=== PATIENT | male | born 1945 | race Caucasian/White ===

== ENCOUNTER 2017-01-02 22:52 | Inpatient (IN) | payer MEDICARE ==
[~2017-01-02] VITALS: Ht 165.1 cm; Wt 57.6 kg
[~2017-01-02 22:52] MED LIST: ACLI400A2 IH; ASPI-482 PO; CIPR500T94 PO; FLUT16SP NS; GLIP5TAB10 PO; LISI-334 PO; METF500T4 PO; megared
--- NOTE | 2017-01-02 23:17 | ED.ADGEN ---
Past Medical History Past Medical History: COPD, Diabetes-Type II, Hypertension Past Surgical History: Appendectomy Alcohol Use: None Drug Use: None Adult General Chief Complaint Chief Complaint: ALTERED MENTAL STATUS HPI HPI Patient is a 71 year old man, history of COPD, uses 2 L of oxygen at baseline as needed, type 2 diabetes mellitus, hypertension, UTI, who presents emergency department with report of altered mental status. Per EMS report, patient was first noted to be exhibiting signs altered mental status and some slurred speech around 6 days ago. Symptoms have been worsening over the past several days per EMS report, family is en route to the ED to give additional information. Patient is awake, oriented to self only upon arrival to the ED, the all extremities, speech is clear and intact. Patient is denying complaints at this time. Noted be febrile, 101.9 rectally upon arrival to the emergency department, hypertensive, 220/112, heart rate 100s to 120s, sinus rhythm. Patient is a limited historian, unclear what his baseline mental status might are present. Review of Systems Review of Systems Patient is a limited historian, is denying complaints at this time. Current Medications Current Medications Current Medications Medications (Trade) Dose Ordered Sig/Kecia Start Time Stop Time Status Last Admin Dose Admin Acetaminophen (Tylenol) 650 mg 1X ONCE 01/02/17 23:45 01/02/17 23:46 DC 01/03/17 00:08 650 MG Sodium Chloride (Iv Sodium Chloride 0.9% 1000ml Bag) 1,770 ml @ 1,770 mls/hr Q1H 01/02/17 23:45 01/02/17 23:20 1,770 MLS/HR Allergies Allergies Allergies Coded Allergies Type Severity Reaction Last Updated Verified nicotine Allergy Intermediate allergic to adhesive on patch 02/06/15 No erythromycin base Adverse Reaction Intermediate diarrhea 02/06/15 No Physical Exam Physical Exam Constitutional: Well developed, well nourished, no acute distress, ill in appearance, nasal cannula in place, cool extremities. HENT: Normocephalic, atraumatic, bilateral external ears normal, oropharynx moist, no oral exudates, nose normal. [] Eyes: PERRLA, EOMI, conjunctiva normal, no discharge. [] Neck: Normal range of motion, no tenderness, supple, no stridor. [] Cardiovascular:Heart rate regular rhythm, no murmur , S1, S2, soft heart sounds , tachycardia. No rubs or gallops. [] Lungs & Thorax: Diminished breath sounds throughout, she with occasional mild rhonchi, no rales, Very poor inspiratory effort, limiting evaluation.. Abdomen: Bowel sounds normal, soft, no tenderness, no rebound, rigidity, no guarding, no masses, no pulsatile masses. [] Skin: Warm, dry, no erythema, no rash. [] Back: No step-offs or deformities, no midline tenderness, no CVA tenderness. [] Extremities: No tenderness, no cyanosis, no clubbing, ROM intact, no edema. [] Neurologic: Alert and oriented X 1, normal motor function, normal sensory function, no focal deficits noted. [] Psychologic: Affect normal, judgement normal, mood normal. [] Current Patient Data Vital Signs Vital Signs Date Time Temp Pulse Resp B/P Pulse Ox O2 Delivery O2 Flow Rate FiO2 01/02/17 22:55 101.9 116 30 215/98 93 Nasal Cannula 2 101.9 Lab Values Laboratory Tests Test 01/02/17 23:10 01/02/17 23:12 01/02/17 23:42 White Blood Count 13.9x10^3/uL (4.0-11.0) H Red Blood Count 4.66x10^6/uL (4.30-5.70) Hemoglobin 13.6g/dL (13.0-17.5) Hematocrit 41.8% (39.0-53.0) Mean Corpuscular Volume 90fL (79-100) Mean Corpuscular Hemoglobin 29pg (25-35) Mean Corpuscular Hemoglobin Concent 32g/dL (31-37) Red Cell Distribution Width 14.8% (11.5-14.5) H Platelet Count 185x10^3/uL (140-400) Neutrophils (%) (Auto) 83% (31-73) H Lymphocytes (%) (Auto) 5% (24-48) L Monocytes (%) (Auto) 12% (0-9) H Eosinophils (%) (Auto) 0% (0-3) Basophils (%) (Auto) 0% (0-3) Neutrophils # (Auto) 11.6x10^3uL (1.8-7.7) H Lymphocytes # (Auto) 0.6x10^3/uL (1.0-4.8) L Monocytes # (Auto) 1.7x10^3/uL (0.0-1.1) H Eosinophils # (Auto) 0.0x10^3/uL (0.0-0.7) Basophils # (Auto) 0.0x10^3/uL (0.0-0.2) Prothrombin Time 14.8SEC (11.7-14.0) H Prothrombin Time INR 1.2 (0.8-1.1) H PTT 37SEC (24-38) Sodium Level 138mmol/L (136-145) Potassium Level 5.2mmol/L (3.5-5.1) H Chloride Level 97mmol/L (98-107) L Carbon Dioxide Level 39mmol/L (21-32) H Anion Gap 2 (6-14) L Blood Urea Nitrogen 35mg/dL (8-26) H Creatinine 0.9mg/dL (0.7-1.3) Estimated GFR (Cockcroft-Gault) 83.7 BUN/Creatinine Ratio 39 (6-20) H Glucose Level 210mg/dL (70-99) H Lactic Acid Level 4.1mmol/L (0.4-2.0) *H Calcium Level 9.4mg/dL (8.5-10.1) Total Bilirubin 0.7mg/dL (0.2-1.0) Aspartate Amino Transferase (AST) 18U/L (15-37) Alanine Aminotransferase (ALT) 32U/L (16-63) Alkaline Phosphatase 40U/L (46-116) L Troponin I Quantitative 0.644ng/mL (0.000-0.055) UA-Qfl-I-Type Natriuretic Peptide 20917yh/mL (0-124) H Total Protein 7.1g/dL (6.4-8.2) Albumin 3.9g/dL (3.4-5.0) Albumin/Globulin Ratio 1.2 (1.0-1.7) Influenza Type A Antigen Negative (NEGATIVE) Influenza Type B Antigen Negative (NEGATIVE) Urine Collection Type U cath Urine Color Yellow Urine Clarity Clear Urine pH 6.0 Urine Specific [place] 1.020 Urine Protein 100mg/dL (NEG-TRACE) Urine Glucose (UA) 500mg/dL (NEG) Urine Ketones (Stick) Tracemg/dL (NEG) Urine Blood Small (NEG) Urine Nitrite Negative (NEG) Urine Bilirubin Negative (NEG) Urine Urobilinogen Dipstick 1.0mg/dL (0.2 mg/dL) Urine Leukocyte Esterase Negative (NEG) Urine RBC 1-2/HPF (0-2) Urine WBC 1-4/HPF (0-4) Urine Squamous Epithelial Cells Few/LPF Urine Amorphous Sediment Present/HPF Urine Bacteria 0/HPF (0-FEW) Urine Hyaline Casts Few/HPF Urine Mucus Slight/LPF Urine Opiates Screen Neg (NEG) Urine Methadone Screen Neg (NEG) Urine Barbiturates Neg (NEG) Urine Phencyclidine Screen Neg (NEG) Urine Amphetamine/Methamphetamine Neg (NEG) Urine Benzodiazepines Screen Neg (NEG) Urine Cocaine Screen Neg (NEG) Urine Cannabinoids Screen Neg (NEG) Urine Ethyl Alcohol Neg (NEG) O2 Saturation 96% (92-99) Arterial Blood pH 7.40 (7.35-7.45) Arterial Blood pCO2 at Patient Temp 54mmHg (35-46) H Arterial Blood pO2 at Patient Temp 80mmHg (65-108) Arterial Blood HCO3 32mmol/L (21-28) H Arterial Blood Base Excess 6mmol/L (-3-3) H FiO2 28 Laboratory Tests 01/02/17 23:10 Laboratory Tests 01/02/17 23:10 EKG EKG EC: Sinus tachycardia, heart rate 117 bpm, right axis deviation, moderate baseline artifact noted, limiting some interpretation, [address] elevation noted in lead V3, no other elevations or depressions identified, abnormal ECG, does not meet STEMI criteria. As interpreted by me. [] Radiology/Procedures Radiology/Procedures Test x-ray: One view: Patient with significant hyper inflation consistent with previous chest x-ray, known history of COPD, patient noted to have increased interstitial markings, without discrete infiltrate, possible cephalization. No pneumothorax, no bony abnormalities As interpreted by me. [] Course & Med Decision Making Course & Med Decision Making Pertinent Labs and Imaging studies reviewed. (See chart for details) Patient febrile, 101.9 rectally as stated, with altered mental status, is answering some questions, but is not cooperative with examination. Attempting to pull nasal cannula minutes placed secondary to concern for patient removing vital monitoring and medical Thomas. Fully catheter was placed for monitoring and critical illness. Noted be hypertensive, initially believed due to his movement, 200s over 100s, heart rate in the 120s, sinus tachycardia. Patient's and now bedside, she states he began "acting strangely" 5 days ago, difficulty finding words, difficulty using his phone. States that that progressed over the past several days, was worse today, patient had a loss of bladder control, was unable to get off the couch, at that time she called her son, they did call EMS brought the patient to the ED. Patient is not had similar symptoms previously. ABG obtained, reveals a pH of 7.4, PCO2 33, O2 of 80, bicarbonate of 32 with a base excess of 6, she states the patient did have his oxygen on at home as far she is aware. Patient noted to have elevated troponin at 0.644, with a proBNP greater than 11,000. He has no reported history of congestive heart failure. Patient's blood pressure continued to be elevated, 200s 100s. Concern for congestive heart failure along with elevated lactic acidosis and evidence of poor perfusion, patient has received a 1 L fluid bolus at this time. Findings as above discussed with Dr. Zapata of cardiology, recommends continuing gentle hydration at this time, with addition of a nitroglycerin infusion per protocol for blood pressure control. Patient continues to have an altered mentation, which may be due to a constellation of findings, I do not believe that his examination is consistent with meningitis or indication rule out puncture this time, head CT was unremarkable, I did discuss all this at bedside with patient's , she is agreeable with the plan of care at this point. Patient is DNR DNI. Findings as above discussed with Dr. Medellin of internal medicine, patient accepted his service as an admission to the CVICU, will continue after glycerin drip, gentle hydration, will cover with vancomycin and Levaquin, and consult infectious disease and neurology for additional evaluation. Bridge orders entered per discussion. Dragon Disclaimer Dragon Disclaimer This electronic medical record was generated, in whole or in part, using a voice recognition dictation system. Departure Impression: Primary Impression: Altered mental status Additional Impression: Community acquired pneumonia Disposition: 09 ADMITTED INPATIENT Admitting Physician: Judah Medellin Condition: IMPROVED Critical Care Time Critical care time was 20 minutes exclusive of procedures. Problem Qualifiers KRISTEN CHAPA DO Jan 02, 2017 23:17
[2017-01-02] MEDS: NORMAL SALINE IV SCH (23:20)
[2017-01-02 23:22] LABS: BASO % 0 % (0-3); EOS % 0 % (0-3); HEMATOCRIT 41.8 % (39.0-53.0); HEMOGLOBIN 13.6 g/dL (13.0-17.5); LYMPH # 0.6 x10^3/uL (1.0-4.8); LYMPH % 5 % (24-48); MEAN CORPUSCULAR HEMOGLOBIN 29 pg (25-35); MEAN CORPUSCULAR HGB CONC 32 g/dL (31-37); MEAN CORPUSCULAR VOLUME 90 fL (79-100); MONO % 12 % (0-9); NEUT % 83 % (31-73); PLATELET COUNT 185 x10^3/uL (140-400); RED BLOOD COUNT 4.66 x10^6/uL (4.30-5.70); RED CELL DISTRIBUTION WIDTH 14.8 % (11.5-14.5); WHITE BLOOD COUNT 13.9 x10^3/uL (4.0-11.0)
[2017-01-02 23:22] LABS: BILIRUBIN,URINE NEGATIVE (NEG); GLUCOSE,URINE 500 mg/dL (NEG); NITRITE,URINE NEGATIVE (NEG); PROTEIN,URINE 100 mg/dL (NEG-TRACE)
[2017-01-02 23:27] LABS: BACTERIA,URINE 0 /HPF (0-FEW); SQUAMOUS EPITHELIAL CELL,UR FEW /LPF
[2017-01-02 23:29] LABS: BARBITURATES NEG (NEG); BENZODIAZEPINES NEG (NEG); CANNABINOIDS NEG (NEG); COCAINE NEG (NEG); METHADONE NEG (NEG); OPIATES NEG (NEG); PHENCYCLIDINE NEG (NEG)
[2017-01-02 23:31] LABS: INR 1.2 (0.8-1.1); PROTHROMBIN TIME PATIENT 14.8 SEC (11.7-14.0)
[2017-01-02 23:33] LABS: ETHANOL, URINE NEG (NEG)
[2017-01-02 23:35] LABS: CALCIUM 9.4 mg/dL (8.5-10.1); CREATININE 0.9 mg/dL (0.7-1.3); GFR 83.7; POTASSIUM 5.2 mmol/L (3.5-5.1)
[2017-01-02 23:41] LABS: ALBUMIN 3.9 g/dL (3.4-5.0); ALBUMIN/GLOBULIN RATIO 1.2 (1.0-1.7); TOTAL BILIRUBIN 0.7 mg/dL (0.2-1.0); TOTAL PROTEIN 7.1 g/dL (6.4-8.2)
[2017-01-02 23:42] LABS: OBC FLU VALID
--- NOTE | 2017-01-02 23:43 | RAD ---
PROCEDURE CT head without contrast dated 01/02/2017. HISTORY Altered mental status. TECHNIQUE Contiguous axial imaging of the head was performed from skull base to vertex.Exposure: One or more of the following individualized dose reduction techniques were utilized for this exam: 1. Automated exposure control. 2. Adjustment of the mA and/or kV according to patient size. 3. Use of iterative reconstruction technique. COMPARISON None. FINDINGS Ventricles and sulci are mildly prominent for age. No midline shift or mass-effect. Mild patchy low density in the deep/subcortical periventricular white matter. No hemorrhage or extra-axial collection. Posterior fossa and brainstem unremarkable. Visualized paranasal sinuses and mastoid air cells are clear. No acute calvarial abnormality. IMPRESSION - No evidence of acute intracranial hemorrhage or mass. - Mild chronic small vessel ischemic changes and atrophy. Electronically signed by: Naga Trujillo (Jan 02, 2017 23:42:33)
[2017-01-02] MEDS ORDERED: ACETAMINOPHEN 650 MG SUPP.RECT. PR ONE (23:45)
[2017-01-03] VITALS (35 sets, daily range): BP systolic 86–189; BP diastolic 32–102
[2017-01-03] MEDS ORDERED: methylPREDNISolone SOD SUCC PF 125 MG/2 ML VIAL. IV ONE (00:30)
[2017-01-03] MEDS ORDERED: ASPIRIN 325 MG TABLET PO ONE (00:30)
[2017-01-03] MEDS ORDERED: IV NORMAL SALINE 1000ML BAG 1,000 ML IV ONE (00:30)
[2017-01-03] MEDS ORDERED: NITROGLYCERIN PREMIX 250 ML IV ONE (00:30)
[2017-01-03 00:45] LABS: ALLEN TEST Y; FIO2 ABG 28; HCO3 ABG 32 mmol/L (21-28); PCO2 ABG 54 mmHg (35-46); PO2 ABG 80 mmHg (65-108); SAT O2 ABG 96 % (92-99)
[2017-01-03] MEDS ORDERED: DEXTROSE 50% 25 GM / 50ML DISP.SYRIN. IV PRN ×2 (00:45→08:15)
[2017-01-03] MEDS ORDERED: ONDANSETRON PF 4 MG/2 ML VIAL. IV PRN (00:45)
[2017-01-03] MEDS ORDERED: ACETAMINOPHEN 325 MG TABLET. PO PRN (00:45)
[2017-01-03] MEDS: NORMAL SALINE IV SCH ×9 (00:45→08:45)
[2017-01-03] MEDS ORDERED: IV NORMAL SALINE 1000ML BAG 1,000 ML IV SCH ×2 (01:00→03:00)
--- NOTE | 2017-01-03 01:10 | ACF ---
Admission Forms Criteria MENTAL STATUS CHANGE Clinical Indications for Inpatient Care (Place 'X' for any and all applicable criteria): Ongoing inpatient care may be needed for ANY ONE of the following(1)(2)(3)(5)(6) : [X]I. Suspected serious etiology (eg, medical disorder, BUS MATRON event) of mental status change [ ]II. Danger to self or others not manageable at lower level of care [ ]III. Grave disability (eg, inability to perform self care necessary at lower level of care) [ ]IV. Agitation or inappropriate behavior interfering with care for primary condition (eg, attempting to discontinue lines or drains prematurely, unable to cooperate with respiratory care) [ ]V. Delirium [A] [D][E] as described by ANY ONE of the following(26): [ ]a) Delirium due to alcohol or sedative [F] withdrawal [ ]b) Delirium of uncertain etiology that has not responded to appropriate empiric treatment [ ]c) Delirium that prevents performance of a life-sustaining function (eg, feeding or hydrating oneself) [ ]. General contraindications and/or Inappropriate clinical situations for Observational Care in patients with Mental Status Change, when ANY ONE of the following is required: [ ]a) Prediction of prolongation of LOS based on ANY ONE of the following may be considered as a contraindication for observational care 2, 3, 4, 5, 6, 7, 8, 9, 10, 11 [ ]i) Age > 65 yrs. [ ]ii) Patient arriving by ambulance [ ]iii) Patient with high acuity [ ]iv) Patient requiring vital sign monitoring [ ]v) Patient on IV medication [ ]b) Systolic blood pressures 180mmHg 3,12 [ ]c) Patient with altered mental status including delirium and other alteration of consciousness, (3) [ ]d) Patient whose discharge disposition will be to a fdc home or rehabilitation home should not be managed in Emergency Department Observation Unit. CMS rule requires 3 days hospital stay before such placement.3,13 [ ]e) Patient with failure to thrive due to broad array of etiologies 3,16,17 [ ]f) Inability to ambulate 3,14 Extended stay beyond goal length of stay for the primary condition may be needed until ALL of the following are present(3)(5): [ ]a) Underlying medical etiology of mental status change is absent, or has been established and adequately treated [ ]b) Danger to self or others is absent or manageable at lower level of care. [ ]c) Behavior crisis management, including physical or chemical restraints, is not required or available at lower level of car [ ]d) Substance or alcohol withdrawal is absent or manageable at lower level of care. [ ]e) Behavioral symptoms (eg, agitation, somnolence, inappropriate behavior) are absent, or are manageable at lower level of care. The original [facility] content created by [email or web address] has been revised. The portions of the content which have been revised are identified through the use of italic text or in bold, and [facility] has neither reviewed nor approved the modified material. All other unmodified content is copyright [facility]. Please see references footnoted in the original [facility] edition 2016 Admission Criteria Met?: Yes BRYANT BERRY Jan 03, 2017 01:10
[2017-01-03] MEDS ORDERED: ASPIRIN 300 MG SUPP.RECT PR ONE (01:15)
[2017-01-03] MEDS: VANCOMYCIN PER PHARMACY MC PRN (02:26)
[2017-01-03] MEDS ORDERED: VANCOMYCIN 1.5 GM in IV NORMAL SALINE 500ML BAG 500 ML IV ONE (02:30)
[2017-01-03] MEDS ORDERED: PNEUMOCOCCAL VAX SCREEN BY RX. MC ONE (02:45)
[2017-01-03] MEDS ORDERED: MELO7.5T5 PO (02:59)
[2017-01-03] MEDS ORDERED: RANI150T6 PO (02:59)
[2017-01-03] MEDS ORDERED: NITROGLYCERIN PREMIX 250 ML IV PRN (03:00)
[2017-01-03] MEDS ORDERED: IPRA0.2S5 NEB (03:15)
[2017-01-03] MEDS ORDERED: GLIP5TAB10 PO (03:15)
[2017-01-03] MEDS ORDERED: LORA0.5T96 PO (03:15)
[2017-01-03] MEDS ORDERED: MONT10TA9 PO (03:15)
[2017-01-03] MEDS ORDERED: FUROSEMIDE 40 MG/4 ML VIAL IVP ONE (06:15)
--- NOTE | 2017-01-03 06:34 | EKG ---
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
--- NOTE | 2017-01-03 06:35 | EKG ---
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
--- NOTE | 2017-01-03 07:09 | RAD ---
Portable chest, 01/02/2017: History: Altered mental status Comparison is made to a study from 05/14/2016. The heart size is normal. There is calcific plaquing of the aorta. The pulmonary vascularity is within normal limits. There are a few scattered parenchymal scars. A calcified granuloma is present in the left base. No pulmonary consolidation is seen. There is no evidence of pleural fluid. IMPRESSION: 1. Emphysema with parenchymal scarring. 2. No acute abnormality is detected.
--- NOTE | 2017-01-03 07:12 | PDOC ---
Infectious Disease Note Vital Sign Vital Signs Vital Signs Date Time Temp Pulse Resp B/P Pulse Ox O2 Delivery O2 Flow Rate FiO2 01/03/17 06:00 102 29 157/94 96 Nasal Cannula 3.0 01/03/17 04:00 98.2 98.2 Labs Lab Laboratory Tests Test 01/02/17 23:10 01/02/17 23:12 01/02/17 23:42 01/03/17 00:20 White Blood Count 13.9x10^3/uL (4.0-11.0) Red Blood Count 4.66x10^6/uL (4.30-5.70) Hemoglobin 13.6g/dL (13.0-17.5) Hematocrit 41.8% (39.0-53.0) Mean Corpuscular Volume 90fL (79-100) Mean Corpuscular Hemoglobin 29pg (25-35) Mean Corpuscular Hemoglobin Concent 32g/dL (31-37) Red Cell Distribution Width 14.8% (11.5-14.5) Platelet Count 185x10^3/uL (140-400) Neutrophils (%) (Auto) 83% (31-73) Lymphocytes (%) (Auto) 5% (24-48) Monocytes (%) (Auto) 12% (0-9) Eosinophils (%) (Auto) 0% (0-3) Basophils (%) (Auto) 0% (0-3) Neutrophils # (Auto) 11.6x10^3uL (1.8-7.7) Lymphocytes # (Auto) 0.6x10^3/uL (1.0-4.8) Monocytes # (Auto) 1.7x10^3/uL (0.0-1.1) Eosinophils # (Auto) 0.0x10^3/uL (0.0-0.7) Basophils # (Auto) 0.0x10^3/uL (0.0-0.2) Prothrombin Time 14.8SEC (11.7-14.0) Prothromb Time International Ratio 1.2 (0.8-1.1) Activated Partial Thromboplast Time 37SEC (24-38) Sodium Level 138mmol/L (136-145) Potassium Level 5.2mmol/L (3.5-5.1) Chloride Level 97mmol/L (98-107) Carbon Dioxide Level 39mmol/L (21-32) Anion Gap 2 (6-14) Blood Urea Nitrogen 35mg/dL (8-26) Creatinine 0.9mg/dL (0.7-1.3) Estimated GFR (Cockcroft-Gault) 83.7 BUN/Creatinine Ratio 39 (6-20) Glucose Level 210mg/dL (70-99) Lactic Acid Level 4.1mmol/L (0.4-2.0) 0.9mmol/L (0.4-2.0) Calcium Level 9.4mg/dL (8.5-10.1) Total Bilirubin 0.7mg/dL (0.2-1.0) Aspartate Amino Transf (AST/SGOT) 18U/L (15-37) Alanine Aminotransferase (ALT/SGPT) 32U/L (16-63) Alkaline Phosphatase 40U/L (46-116) Troponin I Quantitative 0.644ng/mL (0.000-0.055) AQ-Lsm-F-Type Natriuretic Peptide 48703zn/mL (0-124) Total Protein 7.1g/dL (6.4-8.2) Albumin 3.9g/dL (3.4-5.0) Albumin/Globulin Ratio 1.2 (1.0-1.7) Influenza Type A Antigen Negative (NEGATIVE) Influenza Type B Antigen Negative (NEGATIVE) Urine Collection Type U cath Urine Color Yellow Urine Clarity Clear Urine pH 6.0 Urine Specific [place] 1.020 Urine Protein 100mg/dL (NEG-TRACE) Urine Glucose (UA) 500mg/dL (NEG) Urine Ketones (Stick) Tracemg/dL (NEG) Urine Blood Small (NEG) Urine Nitrite Negative (NEG) Urine Bilirubin Negative (NEG) Urine Urobilinogen Dipstick 1.0mg/dL (0.2 mg/dL) Urine Leukocyte Esterase Negative (NEG) Urine RBC 1-2/HPF (0-2) Urine WBC 1-4/HPF (0-4) Urine Squamous Epithelial Cells Few/LPF Urine Amorphous Sediment Present/HPF Urine Bacteria 0/HPF (0-FEW) Urine Hyaline Casts Few/HPF Urine Mucus Slight/LPF Urine Opiates Screen Neg (NEG) Urine Methadone Screen Neg (NEG) Urine Barbiturates Neg (NEG) Urine Phencyclidine Screen Neg (NEG) Urine Amphetamine/Methamphetamine Neg (NEG) Urine Benzodiazepines Screen Neg (NEG) Urine Cocaine Screen Neg (NEG) Urine Cannabinoids Screen Neg (NEG) Urine Ethyl Alcohol Neg (NEG) O2 Saturation 96% (92-99) Arterial Blood pH 7.40 (7.35-7.45) Arterial Blood pCO2 at Patient Temp 54mmHg (35-46) Arterial Blood pO2 at Patient Temp 80mmHg (65-108) Arterial Blood HCO3 32mmol/L (21-28) Arterial Blood Base Excess 6mmol/L (-3-3) FiO2 28 Objective Assessment Sepsis Encephalopathy COPD exacerbation CHF/Interstitial infiltrate Debility Plan Plan of Care DNR/DNI supportive care add zosyn to vanc and levaquin panculture prognosis poor RICO FAM MD Jan 03, 2017 07:12
[2017-01-03] MEDS ORDERED: IPRATRPIUM/ALBUTEROL 0.5/2.5MG 3 ML NEBU. NEB SCH (08:00)
[2017-01-03] MEDS ORDERED: PIPERACILLIN/TAZOBACTAM 3.375 GM in IV NORMAL SALINE 50ML 50 ML IV SCH (08:00)
[2017-01-03] MEDS: INSULIN ASPART 300 UNITS/3 ML INSULN.PEN SQ SCH ×3 (08:00→17:00)
[2017-01-03] MEDS ORDERED: LORAZEPAM 0.5 MG TABLET. PO PRN (08:15)
[2017-01-03] MEDS ORDERED: PIP/TAZO PER PHARMACY MC PRN (08:15)
[2017-01-03] MEDS ORDERED: LORAZEPAM 2 MG/ML VIAL IV STA (08:26)
[2017-01-03 08:28] LABS: BODY TEMP ABG 101.1 DEG; CORRECTED PCO2 ABG 59 mmHg; CORRECTED PH ABG 7.39; CORRECTED PO2 ABG 74 mmHg; HCO3 ABG 35 mmol/L (21-28); PCO2 ABG 56 mmHg (35-46); PH ABG 7.41 (7.35-7.45); PO2 ABG 68 mmHg (65-108); SAT O2 ABG 94 % (92-99)
--- NOTE | 2017-01-03 08:32 | CONS ---
DATE OF CONSULTATION: 01/03/2017 REQUESTING PHYSICIAN: Dr. Medellin. REASON FOR CONSULTATION: Sepsis. HISTORY OF PRESENT ILLNESS: This is a 71-year-old gentleman with severe COPD, who was brought in with altered mental status. The patient was found to be hypoxic, leukocytosis, had a fever up to 101.9, received fluids and admitted to ICU, had lactic acidosis. The patient is not responsive, although blood pressure is stable and oxygenation is stable. Pulmonary interstitial lung markings were increased. BNP was high, up to 11,466, and lactic acid up to 4.1. The patient received vancomycin and Levaquin and consult has been requested. The patient is not able to provide any information. All the information was obtained through chart review, discussing with the patient's nurse. No nausea, vomiting, diarrhea noted by nurse. PAST MEDICAL HISTORY: Positive for COPD, diabetes, hypertension, has had appendicectomy, appears to be he is on home oxygen, and he is also DNR/DNI has been listed in ER records. SOCIAL HISTORY: Unable to obtain. ALLERGIES: LISTED ALLERGIC TO ERYTHROMYCIN ____ CURRENT MEDICATIONS: Reviewed. The patient is on vancomycin and Levaquin. REVIEW OF SYSTEMS: Unable to obtain other than what I mentioned in the HPI through the patient's nurse. PHYSICAL EXAMINATION: GENERAL: Awake, unresponsive gentleman, not in any distress, very mild respiratory distress. VITAL SIGNS: Stable. Temperature 98.2, with a T-max 101.9, pulse 107, respirations 25, blood pressure 148/85. HEENT: Both pupils are round and reacting. No conjunctival lesion. No oral lesions. NECK: Supple, although unable to evaluate as the patient is not cooperating. No lymphadenopathy. LUNGS: Decreased breath sounds bilaterally. HEART: S1, S2 regular. No gallop or murmur. ABDOMEN: Soft, nontender, no organomegaly. EXTREMITIES: No edema or cyanosis. The patient does have extremely dry, flaky skin. NEUROLOGICAL: The patient does not respond to command. LABORATORY DATA: White count is 13.9, hemoglobin 13.6, platelets are normal. BUN is 35, creatinine is 0.9. Lactic acid 4.1. BNP is 11,466. Urinalysis negative for any infection. Influenza screen is negative. Chest x-ray is showing bilateral increased interstitial markings. CT of the head was unremarkable for any acute changes. IMPRESSION: 1. Sepsis with lactic acidosis. 2. Encephalopathy. 3. Chronic obstructive pulmonary disease exacerbation. 4. Congestive heart failure. 5. Debility and poor self care. RECOMMENDATIONS: Continue vancomycin and Levaquin, add Zosyn, cuello culture, supportive care. The patient is DNR/DNI. We will continue to follow. Overall prognosis is guarded to poor. Thank you very much, Dr. Medellin, for giving me the opportunity to participate in this patient's care. RICO FAM MD DR: NAEL/evgeny JOB#: [id number] / [id number]
[2017-01-03 08:36] LABS: FIO2 ABG 32%
[2017-01-03 08:39] LABS: CALCIUM 8.4 mg/dL (8.5-10.1); CREATININE 0.7 mg/dL (0.7-1.3); GFR 111.8; POTASSIUM 4.1 mmol/L (3.5-5.1)
[2017-01-03] MEDS ORDERED: LORAZEPAM 2 MG/ML VIAL IV PRN ×2 (08:45)
[2017-01-03] MEDS ORDERED: LORAZEPAM 2 MG/ML VIAL IV ONE (08:45)
--- NOTE | 2017-01-03 08:46 | PDOC1 ---
History and Physical Date of Admission Date of Admission DATE: 01/03/17 TIME: 08:46 Identification/Chief Complaint Chief Complaint confusion, dyspnea Source Source: Chart review History of Present Illness History of Present Illness Mr Perez, is a 71 year old man, EMS to ER, admitted for confusion, lethargy 6 days of slurred speech, weakness, not much other history IN ER speech was clear and intact. in ICU this AM, confused, wearing mitts, not responding with verbal, he did have a seizure < 2 min, stopped, then agitation and Resp rate improved a lot with IV Ativan 2 febrile, 101.9 hypertensive, 220/112, tachycardia Past Medical History Past Medical History history of COPD, uses 2 L of oxygen at baseline as needed, type 2 diabetes mellitus, hypertension, Cardiovascular: CHF, HTN Pulmonary: COPD Endocrine: Diabetes Family History Family History: No Significant Social History Smoke: Quit ALCOHOL: other Current Problem List Problem List Problems Medical Problems: (1) Altered mental status Status: Acute (2) Community acquired pneumonia Status: Acute Problems: Current Medications Current Medications Current Medications Sodium Chloride (Iv Sodium Chloride 0.9% 1000ml Bag) 1,770 ml @ 1,770 mls/hr Q1H IV Last administered on 01/02/17 23:20; Start 01/02/17 at 23:45 Acetaminophen 650 mg 650 mg 1X ONCE MD Last administered on 01/03/17 00:08; Start 01/02/17 at 23:45; Stop 01/02/17 at 23:46; Status DC Levofloxacin/ Dextrose (LEVAQUIN 750mg PREMIX) 150 ml @ 100 mls/hr 1X ONCE IV Last administered on 01/03/17 00:47; Start 01/03/17 at 00:30; Stop 01/03/17 at 01:59; Status DC Methylprednisolone Sodium Succinate 125 mg 125 mg 1X ONCE IV Last administered on 01/03/17 00:45; Start 01/03/17 at 00:30; Stop 01/03/17 at 00:31 ; Status DC Nitroglycerin/ Dextrose 250 ml @ 0 mls/hr 1X ONCE IV Last administered on 01/03 00:45; Start 01/03/17 at 00:30; Stop 01/03/17 at 00:31; Status DC Sodium Chloride (Iv Sodium Chloride 0.9% 1000ml Bag) 1,000 ml @ 125 mls/hr 1X ONCE IV ; Start 01/03/17 at 00:30; Stop 01/03/17 at 08:29; Status Cancel Aspirin (Fabiola Aspirin) 325 mg 1X ONCE PO ; Start 01/03/17 at 00:30; Stop 01/03 at 00:31; Status DC Vancomycin HCl (Vanco Per Pharmacy) 1 each PRN DAILY PRN MC SEE COMMENTS Last administered on 01/03/17 02:26; Start 01/03/17 at 02:30 Ondansetron HCl 4 mg 4 mg PRN Q8HRS PRN IV NAUSEA/VOMITING; Start 01/03/17 at 00:45; Stop 01/04/17 at 00:44 Sodium Chloride (Iv Sodium Chloride 0.9% 1000ml Bag) 1,000 ml @ 100 mls/hr Q10H IV ; Start 01/03/17 at 01:00; Stop 01/03/17 at 02:56; Status DC Acetaminophen (Tylenol) 650 mg PRN Q4HRS PRN PO FEVER; Start 01/03/17 at 00:45 ; Stop 01/04/17 at 00:44 Albuterol/ Ipratropium (Duoneb) 3 ml RTQID NEB ; Start 01/03/17 at 08:00; Stop 01/03/17 at 08:05; Status DC Insulin Aspart (Novolog) 0-5 UNITS TIDWMEALS SQ ; Start 01/03/17 at 08:00 Dextrose 12.5 gm PRN Q15MIN PRN IV SEE COMMENTS; Start 01/03/17 at 00:45 Aspirin 300 mg 300 mg 1X ONCE MD Last administered on 01/03/17 01:23; Start 01/03/17 at 01:15; Stop 01/03/17 at 01:16; Status DC Vancomycin HCl 1.5 gm/Sodium Chloride 500 ml @ 250 mls/hr 1X ONCE IV Last administered on 01/03/17 02:33; Start 01/03/17 at 02:30; Stop 01/03/17 at 04:29 ; Status DC Vancomycin HCl/ Sodium Chloride (Iv Sodium Chloride 0.9% 250ml) 250 ml @ 250 mls/hr Q24H IV ; Start 01/04/17 at 02:30 Vancomycin HCl 1 each 1X ONCE MC ; Start 01/05/17 at 02:00; Stop 01/05/17 at 02 :01 Pneumococcal Polyvalent Vaccine 1 each 1 each 1X ONCE MC ; Start 01/03/17 at 02 :45; Stop 01/03/17 at 02:46; Status UNV Nitroglycerin/ Dextrose 250 ml @ 0 mls/hr CONT PRN IV SEE I/O RECORD; Start 08/12 at 03:00 Sodium Chloride (Iv Sodium Chloride 0.9% 1000ml Bag) 1,000 ml @ 125 mls/hr Q8H IV Last administered on 01/03/17 03:00; Start 01/03/17 at 03:00; Stop at 06:22; Status DC Furosemide 40 mg 40 mg 1X ONCE IVP Last administered on 01/03/17 06:14; Start 01/03/17 at 06:15; Stop 01/03/17 at 06:16; Status DC Piperacillin Sod/ Tazobactam Sod/ Sodium Chloride (Zosyn/Iv Sodium Chloride 0.9 % 50ml) 50 ml @ 100 mls/hr Q6HRS IV ; Start 01/03/17 at 08:00; Stop 01/03/17 at 08:08; Status DC Albuterol/ Ipratropium (Duoneb) 3 ml Q4HRS W/A NEB ; Start 01/03/17 at 10:00 Prednisone (Prednisone) 60 mg DAILY PO ; Start 01/03/17 at 09:00; Stop 01/03/17 at 09:00; Status DC Methylprednisolone Sodium Succinate (Solu-Medrol 125mg Vial) 125 mg BID IV ; Start 01/03/17 at 09:00 Aspirin (Ecotrin) 81 mg DAILY PO ; Start 01/03/17 at 09:00 Fluticasone Propionate (Flonase) 1 spray BID NS ; Start 01/03/17 at 09:00 Glipizide (Glucotrol) 2.5 mg AFTRNOON PO ; Start 01/03/17 at 13:00 Glipizide (Glucotrol) 5 mg DAILYAC PO ; Start 01/04/17 at 07:30 Lisinopril (Prinivil) 20 mg DAILY PO ; Start 01/03/17 at 09:00 Lorazepam (Ativan) 0.125 mg PRN TID PRN PO ANXIETY / AGITATION; Start 01/03/17 at 08:15 Famotidine 20 mg 20 mg BID PO ; Start 01/03/17 at 09:00 Piperacillin Sod/ Tazobactam Sod/ Sodium Chloride (Zosyn/Iv Sodium Chloride 0.9 % 100ml) 100 ml @ 200 mls/hr Q6HRS IV ; Start 01/03/17 at 12:00 Piperacillin Sod/ Tazobactam Sod (Zosyn Per Pharmacy) 1 each PRN DAILY PRN MC SEE COMMENTS; Start 01/03/17 at 08:15; Status UNV Insulin Aspart (Novolog) 0-7 UNITS TIDWMEALS SQ ; Start 01/03/17 at 12:00; Status UNV Dextrose 12.5 gm PRN Q15MIN PRN IV SEE COMMENTS; Start 01/03/17 at 08:15 Lorazepam (Ativan) 8 mg 1X STAT IV ; Start 01/03/17 at 08:26; Stop 01/03/17 at 08:29; Status DC Lorazepam (Ativan) 2 mg 1X ONCE IV Last administered on 01/03/17t 08:39; Start 01/03/17 at 08:45; Stop 01/03/17 at 08:46; Status DC Active Scripts Active Cipro (Ciprofloxacin Hcl) 500 Mg Tablet 1 Tab PO BID PRN Reported Ipratropium [place] 0.2 Mg/1 Ml Solution 1 Vial NEB QID Ativan (Lorazepam) 0.5 Mg Tablet 0.125 Mg PO TID PRN Montelukast Sodium Tablet (Montelukast Sodium) 10 Mg Tablet 10 Mg PO HS Glipizide 5 Mg Tablet 5 Mg PO DAILYAC Mobic (Meloxicam) 7.5 Mg Tablet 7.5 Mg PO DAILY Zantac (Ranitidine Hcl) 150 Mg Tablet 150 Mg PO BID Lisinopril 20 Mg Tablet 20 Mg PO DAILY Glipizide 5 Mg Tablet 2.5 Mg PO AFTRNOON Tudorza Pressair (Aclidinium [place]) 400 Mcg Aer.pow.ba 400 Mcg IH Metformin Hcl 500 Mg Tablet 500 Mg PO BIDWMEALS Fluticasone Propionate Nasal [place] (Fluticasone Propionate) 16 Gm [place].susp 1 [place] NS BID Aspir 81 (Aspirin) 81 Mg Tablet.dr 81 Mg PO [megared] Allergies Allergies: Coded Allergies: nicotine (Verified Allergy, Intermediate, allergic to adhesive on patch, ) erythromycin base (Verified Adverse Reaction, Intermediate, diarrhea, 01/03) ROS Review of System unable, not verbal, confused and lethargic Physical Exam Physical Exam tele sinus 114 General: severe distress, Other (confused) HEENT: Atraumatic, EOMI Lungs: Other (tachypnea, shallow, rales, no wheeze) Heart: no murmurs, other (irreg at times, ) Abdomen: Normal bowel sounds, Soft Extremities: No clubbing, No edema Neuro: Normal tone Psych/Mental Status: Other (delirious) Vitals Vitals Vital Signs Date Time Temp Pulse Resp B/P Pulse Ox O2 Delivery O2 Flow Rate FiO2 01/03/17 08:16 Nasal Cannula 3.0 01/03/17 07:30 110 36 152/89 96 01/03/17 04:00 98.2 98.2 Labs Labs Laboratory Tests Test 01/02/17 23:10 01/02/17 23:12 01/02/17 23:42 01/03/17 00:20 White Blood Count 13.9x10^3/uL (4.0-11.0) Red Blood Count 4.66x10^6/uL (4.30-5.70) Hemoglobin 13.6g/dL (13.0-17.5) Hematocrit 41.8% (39.0-53.0) Mean Corpuscular Volume 90fL (79-100) Mean Corpuscular Hemoglobin 29pg (25-35) Mean Corpuscular Hemoglobin Concent 32g/dL (31-37) Red Cell Distribution Width 14.8% (11.5-14.5) Platelet Count 185x10^3/uL (140-400) Neutrophils (%) (Auto) 83% (31-73) Lymphocytes (%) (Auto) 5% (24-48) Monocytes (%) (Auto) 12% (0-9) Eosinophils (%) (Auto) 0% (0-3) Basophils (%) (Auto) 0% (0-3) Neutrophils # (Auto) 11.6x10^3uL (1.8-7.7) Lymphocytes # (Auto) 0.6x10^3/uL (1.0-4.8) Monocytes # (Auto) 1.7x10^3/uL (0.0-1.1) Eosinophils # (Auto) 0.0x10^3/uL (0.0-0.7) Basophils # (Auto) 0.0x10^3/uL (0.0-0.2) Prothrombin Time 14.8SEC (11.7-14.0) Prothromb Time International Ratio 1.2 (0.8-1.1) Activated Partial Thromboplast Time 37SEC (24-38) Sodium Level 138mmol/L (136-145) Potassium Level 5.2mmol/L (3.5-5.1) Chloride Level 97mmol/L (98-107) Carbon Dioxide Level 39mmol/L (21-32) Anion Gap 2 (6-14) Blood Urea Nitrogen 35mg/dL (8-26) Creatinine 0.9mg/dL (0.7-1.3) Estimated GFR (Cockcroft-Gault) 83.7 BUN/Creatinine Ratio 39 (6-20) Glucose Level 210mg/dL (70-99) Lactic Acid Level 4.1mmol/L (0.4-2.0) 0.9mmol/L (0.4-2.0) Calcium Level 9.4mg/dL (8.5-10.1) Total Bilirubin 0.7mg/dL (0.2-1.0) Aspartate Amino Transf (AST/SGOT) 18U/L (15-37) Alanine Aminotransferase (ALT/SGPT) 32U/L (16-63) Alkaline Phosphatase 40U/L (46-116) Troponin I Quantitative 0.644ng/mL (0.000-0.055) [id number]-Type Natriuretic Peptide 08557mq/mL (0-124) Total Protein 7.1g/dL (6.4-8.2) Albumin 3.9g/dL (3.4-5.0) Albumin/Globulin Ratio 1.2 (1.0-1.7) Influenza Type A Antigen Negative (NEGATIVE) Influenza Type B Antigen Negative (NEGATIVE) Urine Collection Type U cath Urine Color Yellow Urine Clarity Clear Urine pH 6.0 Urine Specific [place] 1.020 Urine Protein 100mg/dL (NEG-TRACE) Urine Glucose (UA) 500mg/dL (NEG) Urine Ketones (Stick) Tracemg/dL (NEG) Urine Blood Small (NEG) Urine Nitrite Negative (NEG) Urine Bilirubin Negative (NEG) Urine Urobilinogen Dipstick 1.0mg/dL (0.2 mg/dL) Urine Leukocyte Esterase Negative (NEG) Urine RBC 1-2/HPF (0-2) Urine WBC 1-4/HPF (0-4) Urine Squamous Epithelial Cells Few/LPF Urine Amorphous Sediment Present/HPF Urine Bacteria 0/HPF (0-FEW) Urine Hyaline Casts Few/HPF Urine Mucus Slight/LPF Urine Opiates Screen Neg (NEG) Urine Methadone Screen Neg (NEG) Urine Barbiturates Neg (NEG) Urine Phencyclidine Screen Neg (NEG) Urine Amphetamine/Methamphetamine Neg (NEG) Urine Benzodiazepines Screen Neg (NEG) Urine Cocaine Screen Neg (NEG) Urine Cannabinoids Screen Neg (NEG) Urine Ethyl Alcohol Neg (NEG) O2 Saturation 96% (92-99) Arterial Blood pH 7.40 (7.35-7.45) Arterial Blood pCO2 at Patient Temp 54mmHg (35-46) Arterial Blood pO2 at Patient Temp 80mmHg (65-108) Arterial Blood HCO3 32mmol/L (21-28) Arterial Blood Base Excess 6mmol/L (-3-3) FiO2 28 Test 01/03/17 06:35 01/03/17 08:26 Sodium Level 137mmol/L (136-145) Potassium Level 4.1mmol/L (3.5-5.1) Chloride Level 96mmol/L (98-107) Carbon Dioxide Level 36mmol/L (21-32) Anion Gap 5 (6-14) Blood Urea Nitrogen 32mg/dL (8-26) Creatinine 0.7mg/dL (0.7-1.3) Estimated GFR (Cockcroft-Gault) 111.8 Glucose Level 227mg/dL (70-99) Calcium Level 8.4mg/dL (8.5-10.1) Troponin I Quantitative 0.417ng/mL (0.000-0.055) O2 Saturation 94% (92-99) Arterial Blood pH 7.41 (7.35-7.45) Arterial Blood pH (Temp corrected) 7.39 Arterial Blood pCO2 at Patient Temp 56mmHg (35-46) Arterial Blood pCO2 (Temp correct) 59mmHg Arterial Blood pO2 at Patient Temp 68mmHg (65-108) Arterial Blood pO2 (Temp corrected) 74mmHg Arterial Blood HCO3 35mmol/L (21-28) Arterial Blood Base Excess 8mmol/L (-3-3) FiO2 32% Laboratory Tests Test 01/02/17 23:10 01/02/17 23:12 01/02/17 23:42 01/03/17 00:20 White Blood Count 13.9x10^3/uL (4.0-11.0) Red Blood Count 4.66x10^6/uL (4.30-5.70) Hemoglobin 13.6g/dL (13.0-17.5) Hematocrit 41.8% (39.0-53.0) Mean Corpuscular Volume 90fL (79-100) Mean Corpuscular Hemoglobin 29pg (25-35) Mean Corpuscular Hemoglobin Concent 32g/dL (31-37) Red Cell Distribution Width 14.8% (11.5-14.5) Platelet Count 185x10^3/uL (140-400) Neutrophils (%) (Auto) 83% (31-73) Lymphocytes (%) (Auto) 5% (24-48) Monocytes (%) (Auto) 12% (0-9) Eosinophils (%) (Auto) 0% (0-3) Basophils (%) (Auto) 0% (0-3) Neutrophils # (Auto) 11.6x10^3uL (1.8-7.7) Lymphocytes # (Auto) 0.6x10^3/uL (1.0-4.8) Monocytes # (Auto) 1.7x10^3/uL (0.0-1.1) Eosinophils # (Auto) 0.0x10^3/uL (0.0-0.7) Basophils # (Auto) 0.0x10^3/uL (0.0-0.2) Prothrombin Time 14.8SEC (11.7-14.0) Prothromb Time International Ratio 1.2 (0.8-1.1) Activated Partial Thromboplast Time 37SEC (24-38) Sodium Level 138mmol/L (136-145) Potassium Level 5.2mmol/L (3.5-5.1) Chloride Level 97mmol/L (98-107) Carbon Dioxide Level 39mmol/L (21-32) Anion Gap 2 (6-14) Blood Urea Nitrogen 35mg/dL (8-26) Creatinine 0.9mg/dL (0.7-1.3) Estimated GFR (Cockcroft-Gault) 83.7 BUN/Creatinine Ratio 39 (6-20) Glucose Level 210mg/dL (70-99) Lactic Acid Level 4.1mmol/L (0.4-2.0) 0.9mmol/L (0.4-2.0) Calcium Level 9.4mg/dL (8.5-10.1) Total Bilirubin 0.7mg/dL (0.2-1.0) Aspartate Amino Transf (AST/SGOT) 18U/L (15-37) Alanine Aminotransferase (ALT/SGPT) 32U/L (16-63) Alkaline Phosphatase 40U/L (46-116) Troponin I Quantitative 0.644ng/mL (0.000-0.055) [id number]-Type Natriuretic Peptide 85086vi/mL (0-124) Total Protein 7.1g/dL (6.4-8.2) Albumin 3.9g/dL (3.4-5.0) Albumin/Globulin Ratio 1.2 (1.0-1.7) Influenza Type A Antigen Negative (NEGATIVE) Influenza Type B Antigen Negative (NEGATIVE) Urine Collection Type U cath Urine Color Yellow Urine Clarity Clear Urine pH 6.0 Urine Specific [place] 1.020 Urine Protein 100mg/dL (NEG-TRACE) Urine Glucose (UA) 500mg/dL (NEG) Urine Ketones (Stick) Tracemg/dL (NEG) Urine Blood Small (NEG) Urine Nitrite Negative (NEG) Urine Bilirubin Negative (NEG) Urine Urobilinogen Dipstick 1.0mg/dL (0.2 mg/dL) Urine Leukocyte Esterase Negative (NEG) Urine RBC 1-2/HPF (0-2) Urine WBC 1-4/HPF (0-4) Urine Squamous Epithelial Cells Few/LPF Urine Amorphous Sediment Present/HPF Urine Bacteria 0/HPF (0-FEW) Urine Hyaline Casts Few/HPF Urine Mucus Slight/LPF Urine Opiates Screen Neg (NEG) Urine Methadone Screen Neg (NEG) Urine Barbiturates Neg (NEG) Urine Phencyclidine Screen Neg (NEG) Urine Amphetamine/Methamphetamine Neg (NEG) Urine Benzodiazepines Screen Neg (NEG) Urine Cocaine Screen Neg (NEG) Urine Cannabinoids Screen Neg (NEG) Urine Ethyl Alcohol Neg (NEG) O2 Saturation 96% (92-99) Arterial Blood pH 7.40 (7.35-7.45) Arterial Blood pCO2 at Patient Temp 54mmHg (35-46) Arterial Blood pO2 at Patient Temp 80mmHg (65-108) Arterial Blood HCO3 32mmol/L (21-28) Arterial Blood Base Excess 6mmol/L (-3-3) FiO2 28 Test 01/03/17 06:35 01/03/17 08:26 Sodium Level 137mmol/L (136-145) Potassium Level 4.1mmol/L (3.5-5.1) Chloride Level 96mmol/L (98-107) Carbon Dioxide Level 36mmol/L (21-32) Anion Gap 5 (6-14) Blood Urea Nitrogen 32mg/dL (8-26) Creatinine 0.7mg/dL (0.7-1.3) Estimated GFR (Cockcroft-Gault) 111.8 Glucose Level 227mg/dL (70-99) Calcium Level 8.4mg/dL (8.5-10.1) Troponin I Quantitative 0.417ng/mL (0.000-0.055) O2 Saturation 94% (92-99) Arterial Blood pH 7.41 (7.35-7.45) Arterial Blood pH (Temp corrected) 7.39 Arterial Blood pCO2 at Patient Temp 56mmHg (35-46) Arterial Blood pCO2 (Temp correct) 59mmHg Arterial Blood pO2 at Patient Temp 68mmHg (65-108) Arterial Blood pO2 (Temp corrected) 74mmHg Arterial Blood HCO3 35mmol/L (21-28) Arterial Blood Base Excess 8mmol/L (-3-3) FiO2 32% VTE Prophylaxis Ordered VTE Prophylaxis Devices: No VTE Pharmacological Prophylaxi: Yes Assessment/Plan Assessment/Plan acute respiratory failure, tachypnea, appears like COPD exacerbation, but ABG is 7.41/56/68 no NIPPV indicated anxiety d/o, had seizure in ICU, ativan 8 ordered, 2 given and seizure stopped, breathing rate improved consult Dr. Rawls confusion for days, Sepsis, fluid given, but CHF also, acute on chronic combined CHF likely BNP up hypertensive, caution with fluids, CV consulted, excellent urine output currently Encephalopathy, acute metatbolic Debility and weakness DNR, palliative consult ICU admit 40 min IWONA SAAVEDRA MD Jan 03, 2017 08:46
--- NOTE | 2017-01-03 08:53 | RAD ---
Portable chest, 01/03/2017: History: Increased respirations Comparison is made to yesterday's study. The heart size is normal. There is calcific plaquing of the aorta. There are scattered parenchymal scars. No acute infiltrate is seen. No pleural fluid is identified. IMPRESSION: No significant change since yesterday's study.
[2017-01-03] MEDS ORDERED: ASPIRIN ENTERIC COATED 81 MG TABLET.DR. PO SCH (09:00)
[2017-01-03] MEDS ORDERED: LISINOPRIL 20 MG TABLET PO SCH (09:00)
[2017-01-03] MEDS: FAMOTIDINE 20 MG TABLET. PO SCH ×2 (09:00→21:00)
[2017-01-03] MEDS: FLUTICASONE 50MCG/NASAL SPRAY 16GM BOTTLE. NS SCH ×2 (09:00→21:00)
[2017-01-03] MEDS ORDERED: methylPREDNISolone SOD SUCC PF 125 MG/2 ML VIAL. IV SCH (09:00)
[2017-01-03] MEDS ORDERED: PREDNISONE 20 MG TABLET PO SCH (09:00)
--- NOTE | 2017-01-03 09:05 | PDOC2 ---
CARDIAC CONSULT DATE OF CONSULT Date of Consult DATE: 01/03/17 TIME: 08:41 REASON FOR CONSULT Reason for Consult: HTN, elevated troponin REFERRING PHYSICIAN Referring Physician: Cathy SOURCE Source: Chart review HISTORY OF PRESENT ILLNESS HISTORY OF PRESENT ILLNESS This is a 71 yo male admitted for noted with mental status change by spouse at home. He was brought to ED and was noted with fever, sepsis and very elevated HTN. He also developed respiratory distress overnight which prompted lasix therapy. He is known for COPD with chronic O2 use with continued tobaccoism. He has hx of anxiety and typically takes prn ativan for it. While in ICU his BP got better but then developed convulsions x2 treated with ativan and currently on post ictal state and presently somnolent. His BP is currently controlled and not in distress. He was also noted with mildly elevated troponin. No details of any chest pain, palpitations, dizziness nor passing out while at home. No known hx of CAD but pt is significant for DM2, HTN, HLP. It is not clear if treatment compliance is an issue as family is not available to confirm. Pt does not have past hx of GI bleed, CVA, seizures nor VTE. PAST MEDICAL HISTORY Cardiovascular: HTN, Hyperlipidemia Pulmonary: COPD CENTRAL NERVOUS SYSTEM: Other (No pertinent history) GI: No pertinent hx Heme/Onc: No pertinent hx Hepatobiliary: No pertinent hx Psych: Anxiety Musculoskeletal: low back pain, Osteoarthritis ENT: Allergic Rhinitis Renal/: UTI Endocrine: Diabetes (2) PAST SURGICAL HISTORY Past Surgical History: Appendectomy FAMILY HISTORY Family History: Hypertension SOCIAL HISTORY Smoke: <1 pack per day ALCOHOL: none Drugs: None Lives: with Family CURRENT MEDICATIONS CURRENT MEDICATIONS Current Medications Medications (Trade) Dose Ordered Sig/Kecia Route PRN Reason Start Time Stop Time Status Last Admin Dose Admin Sodium Chloride (Iv Sodium Chloride 0.9% 1000ml Bag) 1,770 ml @ 1,770 mls/hr Q1H IV 01/02/17 23:45 01/02/17 23:20 Acetaminophen 650 mg [address] 01/02/17 23:45 01/02/17 23:46 DC 01/03/17 00:08 Levofloxacin/ Dextrose (LEVAQUIN 750mg PREMIX) 150 ml @ 100 mls/hr 1X ONCE IV 01/03/17 00:30 01/03/17 01:59 DC 01/03/17 00:47 Methylprednisolone Sodium Succinate 125 mg 125 mg 1X ONCE IV 01/03/17 00:30 01/03/17 00:31 DC 01/03/17 00:45 Nitroglycerin/ Dextrose (Nitroglycerin Drip) 250 ml @ 0 mls/hr 1X ONCE IV 01/03/17 00:30 01/03/17 00:31 DC 01/03/17 00:45 Vancomycin HCl (Vanco Per Pharmacy) 1 each PRN DAILY PRN MC SEE COMMENTS 01/03/17 02:30 01/03/17 02:26 Aspirin 300 mg [address] 01/03/17 01:15 01/03/17 01:16 DC 01/03/17 01:23 Vancomycin HCl 1.5 gm/Sodium Chloride 500 ml @ 250 mls/hr 1X ONCE IV 01/03/17 02:30 01/03/17 04:29 DC 01/03/17 02:33 Sodium Chloride (Iv Sodium Chloride 0.9% 1000ml Bag) 1,000 ml @ 125 mls/hr Q8H IV 01/03/17 03:00 01/03/17 06:22 DC 01/03/17 03:00 Furosemide (Lasix) 40 mg 1X ONCE IVP 01/03/17 06:15 01/03/17 06:16 DC 01/03/17 06:14 Lorazepam (Ativan) 2 mg 1X ONCE IV 01/03/17 08:45 01/03/17 08:46 01/03/17 08:39 ALLERGIES ALLERGIES: Coded Allergies: nicotine (Verified Allergy, Intermediate, allergic to adhesive on patch, ) erythromycin base (Verified Adverse Reaction, Intermediate, diarrhea, 01/03) ROS Review of System unreliable, somnolent, post ictal state PHYSICAL EXAM General: Other (somnolent) HEENT: Atraumatic, Mucous membr. moist/pink Lungs: Other (diminished throughout) Abdomen: Soft, Other (scaphoid abd) Extremities: No cyanosis, Other (2+ bilateral LE pitting leg edema) Skin: No breakdown, No significant lesion Neuro: Normal tone Psych/Mental Status: Other (somnolent) MUSCULOSKELETAL: Osteoarthritic changes both hands VITALS VITALS Vital Signs Date Time Temp Pulse Resp B/P Pulse Ox O2 Delivery O2 Flow Rate FiO2 01/03/17 08:16 Nasal Cannula 3.0 01/03/17 07:30 110 36 152/89 96 01/03/17 04:00 98.2 98.2 LABS Lab: Laboratory Tests Test 01/02/17 23:10 01/02/17 23:12 01/02/17 23:42 01/03/17 00:20 White Blood Count 13.9x10^3/uL (4.0-11.0) Red Blood Count 4.66x10^6/uL (4.30-5.70) Hemoglobin 13.6g/dL (13.0-17.5) Hematocrit 41.8% (39.0-53.0) Mean Corpuscular Volume 90fL (79-100) Mean Corpuscular Hemoglobin 29pg (25-35) Mean Corpuscular Hemoglobin Concent 32g/dL (31-37) Red Cell Distribution Width 14.8% (11.5-14.5) Platelet Count 185x10^3/uL (140-400) Neutrophils (%) (Auto) 83% (31-73) Lymphocytes (%) (Auto) 5% (24-48) Monocytes (%) (Auto) 12% (0-9) Eosinophils (%) (Auto) 0% (0-3) Basophils (%) (Auto) 0% (0-3) Neutrophils # (Auto) 11.6x10^3uL (1.8-7.7) Lymphocytes # (Auto) 0.6x10^3/uL (1.0-4.8) Monocytes # (Auto) 1.7x10^3/uL (0.0-1.1) Eosinophils # (Auto) 0.0x10^3/uL (0.0-0.7) Basophils # (Auto) 0.0x10^3/uL (0.0-0.2) Prothrombin Time 14.8SEC (11.7-14.0) Prothromb Time International Ratio 1.2 (0.8-1.1) Activated Partial Thromboplast Time 37SEC (24-38) Sodium Level 138mmol/L (136-145) Potassium Level 5.2mmol/L (3.5-5.1) Chloride Level 97mmol/L (98-107) Carbon Dioxide Level 39mmol/L (21-32) Anion Gap 2 (6-14) Blood Urea Nitrogen 35mg/dL (8-26) Creatinine 0.9mg/dL (0.7-1.3) Estimated GFR (Cockcroft-Gault) 83.7 BUN/Creatinine Ratio 39 (6-20) Glucose Level 210mg/dL (70-99) Lactic Acid Level 4.1mmol/L (0.4-2.0) 0.9mmol/L (0.4-2.0) Calcium Level 9.4mg/dL (8.5-10.1) Total Bilirubin 0.7mg/dL (0.2-1.0) Aspartate Amino Transf (AST/SGOT) 18U/L (15-37) Alanine Aminotransferase (ALT/SGPT) 32U/L (16-63) Alkaline Phosphatase 40U/L (46-116) Troponin I Quantitative 0.644ng/mL (0.000-0.055) UB-Pvq-H-Type Natriuretic Peptide 94615xy/mL (0-124) Total Protein 7.1g/dL (6.4-8.2) Albumin 3.9g/dL (3.4-5.0) Albumin/Globulin Ratio 1.2 (1.0-1.7) Influenza Type A Antigen Negative (NEGATIVE) Influenza Type B Antigen Negative (NEGATIVE) Urine Collection Type U cath Urine Color Yellow Urine Clarity Clear Urine pH 6.0 Urine Specific [place] 1.020 Urine Protein 100mg/dL (NEG-TRACE) Urine Glucose (UA) 500mg/dL (NEG) Urine Ketones (Stick) Tracemg/dL (NEG) Urine Blood Small (NEG) Urine Nitrite Negative (NEG) Urine Bilirubin Negative (NEG) Urine Urobilinogen Dipstick 1.0mg/dL (0.2 mg/dL) Urine Leukocyte Esterase Negative (NEG) Urine RBC 1-2/HPF (0-2) Urine WBC 1-4/HPF (0-4) Urine Squamous Epithelial Cells Few/LPF Urine Amorphous Sediment Present/HPF Urine Bacteria 0/HPF (0-FEW) Urine Hyaline Casts Few/HPF Urine Mucus Slight/LPF Urine Opiates Screen Neg (NEG) Urine Methadone Screen Neg (NEG) Urine Barbiturates Neg (NEG) Urine Phencyclidine Screen Neg (NEG) Urine Amphetamine/Methamphetamine Neg (NEG) Urine Benzodiazepines Screen Neg (NEG) Urine Cocaine Screen Neg (NEG) Urine Cannabinoids Screen Neg (NEG) Urine Ethyl Alcohol Neg (NEG) O2 Saturation 96% (92-99) Arterial Blood pH 7.40 (7.35-7.45) Arterial Blood pCO2 at Patient Temp 54mmHg (35-46) Arterial Blood pO2 at Patient Temp 80mmHg (65-108) Arterial Blood HCO3 32mmol/L (21-28) Arterial Blood Base Excess 6mmol/L (-3-3) FiO2 28 Test 01/03/17 06:35 01/03/17 08:26 Troponin I Quantitative 0.417ng/mL (0.000-0.055) O2 Saturation 94% (92-99) Arterial Blood pH 7.41 (7.35-7.45) Arterial Blood pH (Temp corrected) 7.39 Arterial Blood pCO2 at Patient Temp 56mmHg (35-46) Arterial Blood pCO2 (Temp correct) 59mmHg Arterial Blood pO2 at Patient Temp 68mmHg (65-108) Arterial Blood pO2 (Temp corrected) 74mmHg Arterial Blood HCO3 35mmol/L (21-28) Arterial Blood Base Excess 8mmol/L (-3-3) FiO2 32% ASSESSMENT/PLAN ASSESSMENT/PLAN 1. Metabolic encephalopathy and seizures (x2 convulsions in ICU): currently in post ictal state 2. Prerenal azotemia: suspect CKD 2 baseline 3. Fever with sepsis: Tmax 101.9 4. Malignant HTN: normalized after ativan use for seizures. 5. DM2: uncontrolled 6. AECOPD with continued tobaccoism 7. Elevated pro NT BNP: related to above 8. Elevated troponin: peaked at 0.4. No notable cardiac symptoms. Suspect demand mediated with notable contributing factors above 9. Sinus tachycardia: reactive related to extracardiac factors as above. 10. HLP 11. Prolonged QT: QTc 516 12. EKG changes: repeated due to limb lead reversal. EKG notable for T wave changes to precordial leads (V3-V6) post seizure. 13. Aspiration/dysphagia? Recommendations 1. ID/pulmonary/neurology on board 2. TTE today and obtain lipids and CK 3. ASA. continue with secondary prevention. 4. Will resume po antiHTN once PO allowed. Will place on PRN IV hydralazine. Will reevaluate need pending BP trend. 5. Pt is DNR/DNI, palliative care team has been consulted. 6. Continue with maintenance fluids and supportive care. 7. Caution with QT prolonging meds. Problems: ELIZABETH SAUCEDA APRN Jan 03, 2017 09:05
[2017-01-03] MEDS ORDERED: INSULIN DETEMIR 300 UNITS/3 ML INSULN.PEN. SQ ONE (09:15)
[2017-01-03 09:24] LABS: CHOLESTEROL/HDL RATIO 2.4
[2017-01-03 09:50] LABS: BASO % 0 % (0-3); EOS % 0 % (0-3); HEMATOCRIT 35.6 % (39.0-53.0); LYMPH # 0.4 x10^3/uL (1.0-4.8); LYMPH % 4 % (24-48); MEAN CORPUSCULAR HEMOGLOBIN 29 pg (25-35); MEAN CORPUSCULAR HGB CONC 34 g/dL (31-37); MEAN CORPUSCULAR VOLUME 87 fL (79-100); MONO % 7 % (0-9); NEUT % 89 % (31-73); PLATELET COUNT 162 x10^3/uL (140-400); RED BLOOD COUNT 4.08 x10^6/uL (4.30-5.70); RED CELL DISTRIBUTION WIDTH 14.5 % (11.5-14.5)
--- NOTE | 2017-01-03 09:54 | EKG ---
[facility] [address] [place] [address] Test Date: 2017-01-03 Test Time: 09:52:09 Pat Name: ALFRED CLEMENTE Department: Room: 105 1 Gender: M Blunger Loader: : 1945 Requested By: ELIZABETH SAUCEDA Order Number: [id number] Reading MD: Measurements Intervals [place] Rate: 89 P: 90 MN: 140 QRS: 95 QRSD: 94 T: 92 QT: 418 QTc: 516 Interpretive Statements SINUS RHYTHM RIGHTWARD AXIS T ABNORMALITY IN ANTERIOR LEADS PROLONGED QT ABNORMAL ECG RI6.01 Compared to ECG 05/14/2016 10:07:01 Right-axis deviation now present T-wave abnormality now present Prolonged QT interval now present Atrial premature complex(es) no longer present
[2017-01-03] MEDS ORDERED: hydrALAZINE 20 MG/ML VIAL. IVP PRN (10:15)
[2017-01-03] MEDS: ENOXAPARIN 40 MG/0.4 ML DISP.SYRIN. SQ SCH (10:30)
[2017-01-03] MEDS: METOPROLOL TARTRATE 5 MG/5 ML VIAL. IVP SCH ×2 (10:30→18:00)
[2017-01-03] MEDS: IV NORMAL SALINE 1000ML BAG 1,000 ML IV SCH ×2 (10:31→19:53)
[2017-01-03] MEDS ORDERED: NITROGLYCERIN 0.4MG/HR PATCH. TD SCH (11:00)
[2017-01-03] MEDS: IPRATRPIUM/ALBUTEROL 0.5/2.5MG 3 ML NEBU. NEB SCH ×4 (11:00→19:20)
[2017-01-03 11:43] LABS: PLT ESTIMATE ADEQUATE (ADEQUATE)
--- NOTE | 2017-01-03 11:44 | PDOC ---
Provider Note Provider Note dictated DARLINE CONNORS MD Jan 03, 2017 11:43
[2017-01-03] MEDS ORDERED: INSULIN ASPART 300 UNITS/3 ML INSULN.PEN SQ SCH (12:00)
[2017-01-03] MEDS: PIPERACILLIN/TAZOBACTAM 4.5 GM in IV NORMAL SALINE 100ML 100 ML IV SCH ×3 (12:29→23:52)
[2017-01-03] MEDS: GLIPIZIDE 5 MG TABLET PO SCH (12:30)
--- NOTE | 2017-01-03 13:16 | CARD ---
APPROVED REPORT EXAM: Two-dimensional and M-mode echocardiogram with Doppler and color Doppler. Other Information Quality : Good INDICATION COPD Hypertension/HCVD 2D DIMENSIONS RVDd2.5 (2.9-3.5cm)Left Atrium(2D)3.7 (1.6-4.0cm) IVSd1.3 (0.7-1.1cm)Aortic Root(2D)2.6 (2.0-3.7cm) LVDd3.6 (3.9-5.9cm)LVOT Diameter2.1 (1.8-2.4cm) PWd1.4 (0.7-1.1cm)LVDs2.4 (2.5-4.0cm) FS (%) 33.0 %SV34.0 ml LVEF(%)62.4 (>50%) Aortic Valve AoV Peak Radhames.97.3cm/Caesar Peak GR.3.8mmHg Mitral Valve MV E Jmoidixc45.7cm/sMV DECEL FOEM539oe MV A Oynkzowa71.8cm/sE/A Ratio0.7 TDI Medial E' P. V6.95cm/sE/Medial E'6.6 Tricuspid Valve TR P. Iyycaoqe044bf/sRAP [id number] TR Peak Gr.18hyAkOAYJ67xfRz Pulmonary Vein S1 Jrzobmvk98.5cm/sS2 Seodnfvq09.62cm/s D2 Fhjktnzm15.6cm/sPVa yikmbibm94pcwj LEFT VENTRICLE The left ventricle is normal size. There is mild to moderate concentric left ventricular hypertrophy. Left ventricle systolic function is normal. The Ejection Fraction is 60-65%. There is normal LV segm ental wall motion. Transmitral Doppler flow pattern is Grade I-abnormal relaxation pattern. RIGHT VENTRICLE The right ventricle is normal size. The right ventricular systolic function is normal. ATRIA The left atrium size is normal. The right atrium size is normal. The interatrial septum is intact wit h no evidence for an atrial septal defect or patent foramen ovale as noted on 2-D or Doppler imaging. AORTIC VALVE The aortic valve is calcified but opens well. Doppler and Color Flow revealed no significant aortic r egurgitation. There is no significant aortic valvular stenosis. MITRAL VALVE The mitral valve is calcified but opens well. There is no evidence of mitral valve prolapse. There is no mitral valve stenosis. Doppler and Color-flow revealed trace mitral regurgitation. TRICUSPID VALVE The tricuspid valve is normal in structure and function. Doppler and Color Flow revealed mild tricusp id regurgitation. The PA pressure was estimated at 32 mmHg. There is no tricuspid valve stenosis. PULMONIC VALVE The pulmonary valve is normal in structure and function. Doppler and Color Flow revealed no pulmonic valvular regurgitation. There is no pulmonic valvular stenosis. GREAT VESSELS The aortic root is normal in size. The ascending aorta is not well seen. The IVC is normal in size an d collapses >50% with inspiration. PERICARDIAL EFFUSION There is no evidence of significant pericardial effusion. Critical Notification Critical Value: No <Conclusion> The left ventricle is normal size. Left ventricle systolic function is normal. The Ejection Fraction is 60-65%. There is mild to moderate concentric left ventricular hypertrophy. There is no significant aortic valvular stenosis. Doppler and Color Flow revealed no significant aortic regurgitation. Doppler and Color-flow revealed trace mitral regurgitation. Doppler and Color Flow revealed mild tricuspid regurgitation. The PA pressure was estimated at 32 mmHg.
--- NOTE | 2017-01-03 13:26 | CONS ---
DATE OF CONSULTATION: ATTENDING PHYSICIAN: Dr. Medellin. REASON FOR CONSULTATION: Encephalopathy, COPD. HISTORY OF PRESENT ILLNESS: The patient is a 71-year-old male, who has a history of oxygen-dependent COPD suspect severe with chronic hypercapnia. He was brought into the [facility] Emergency Room with confusion, lethargic and 6 days of slurred speech and weakness. In ER, the patient was noted to have a clear speech, but was confused and ____. He was not responding to verbal stimuli. He had 2 seizures while in the ICU, which did improve with IV Ativan 2 mg. He was also febrile with a fever of 101.9. The patient became hypertensive and tachycardic. They were concerns that he could have gone into congestive heart failure; however, chest x-ray done showed no acute infiltrates, no evidence of CHF or pneumonia. There were some parenchymal scars. He is now in a postictal state and is sleepy, but he spontaneously breathing and currently is on nasal cannula oxygen at 3 liters of 99%-100% saturations. His T-max is 101.1. Neurology has been consulted and Infectious Disease has been consulted and he is on broad spectrum antibiotics. PAST MEDICAL HISTORY: History of oxygen-dependent COPD suspect severe chronic hypercapnia, history of type 2 diabetes and hypertension. PAST SURGICAL HISTORY: No recent surgeries. ALLERGIES: ERYTHROMYCIN. REVIEW OF SYSTEMS: Unable to obtain from the patient due to his encephalopathy. MEDICATIONS: All reviewed as listed in the MRAD including broad spectrum antibiotics and also steroids. PHYSICAL EXAMINATION: GENERAL: He is not responsive to commands. VITAL SIGNS: Blood pressure is currently 164/82, T-max of 101.1. HEENT: Sclerae nonicteric. NECK: Supple. LUNGS: Diminished breath sounds bilaterally, no wheezing. CARDIOVASCULAR: Regular rate. ABDOMEN: Soft. EXTREMITIES: With no pitting edema. LABORATORY DATA: Reviewed. Influenza screen is negative and urine toxicology screen is negative. Chemistries with a BUN of 32, creatinine 0.7. Troponin 0.4. INR is 1.2. ABGs with a pH of 7.41, pCO2 of 56 and PO2 of 68 on 32% FiO2. IMPRESSION: 1. Suspected severe chronic obstructive pulmonary disease with chronic hypoxia and chronic hypercapnia clinically compensated. 2. Acute encephalopathy, now in a postictal state. He had witnessed seizures x 2 well in the ICU and probably had a seizure at home as well causing slurring of speech. Neurology has been consulted. ? encephalitis 3. Fever, no source of infection in the lungs. We will follow ID recommendation. We will leave up to them regarding the need for any lumbar puncture. 4. Clear chest x-ray. 5. Mildly increased troponin level. RECOMMENDATIONS: 1. Continue with present oxygen. 2. Watch for his respiratory status at this point, he is spontaneously breathing, does not need BiPAP. 3. Follow Neurology recommendations. 4. Broad spectrum antibiotics per Infectious Disease. 5. Continue bronchodilators. 6. Deep venous thrombosis prophylaxis. 7. Taper steroids. 8. Monitor blood pressure closely. 9. Discussed with RN and RT. Critical care time 39 minutes. DARLINE CONNORS MD DR: JORDY/evgeny JOB#: [id number] / [id number] FREDDY
[2017-01-03] MEDS ORDERED: GADOBUTROL 7.5 MMOL/7.5 ML VIAL IV ONE (14:15)
--- NOTE | 2017-01-03 14:39 | PDOC2 ---
NEUROLOGY CONSULT Date of Admission Date of Admission DATE: 01/03/17 TIME: 14:25 Reason for Consult Reason for Consult: IMPRESSION: MS changes, unresponsiveness. Slurred speech x 6 days before to ER. Seizure x 1 Respiratory distress/failure. Lactic acidosis. COPD DM HTN HLD RECOMMENDATIONS/PLAN: Brain MRI w/wo contrast plus seizure protocol. Ativan 2 mg IV q 4 h PRN seizure. If has further seizure, Keppra 500 mg IV q12h. EEG if possible. Lab: see orders. Treat medical diseases. Smoking. Dis cussed in detail with his at bedside in ICU. HISTORY OF THE PRESENT ILLNESS: 71-y-old male patient with above medical diseases has been having symptoms of difficult breathing, slurred speech, word finding difficulties, and mental status changes to come to the ER of [facility] on 01/03. No focalized motor or sensory deficits noted. He had a seizure on 01/03 that is new onset per his , but she did not know the detail about his seizure. PAST MEDICAL HISTORY: Please see above. PAST SURGERY HISTORY: No major surgery recently. ALLERGY: Unknown MEDICATIONS: Refer to [facility] HISTORY: Non contributory. SOCIAL HISTORY: Lives with his . Denies illicit drug use. He smokes cigarettes for many years. He drinks alcohol from time to time. REVIEW OF SYSTEMS: Constitutional: No cachexia. Head: No recent traumatic brain or head injury. Skin: No edema, or rash. Ear: No infection, tinnitus. Eyes: No vision loss or color blindness. Nose: No bleeding or purulent discharges. Hearing: Hearing decrease. Neck: No recent injury. Cardiac: HTN. Pulmonary: COPD. GI: No GI ulcer, GI bleeding. Urinary/genital: UTI. Endocrinologic: Diabetes Mellitus Skeletomuscular: No muscular atrophy, deformity. Neurological: see HP. Psychiatric: Denies drug use/abuse. Otherwise, not [id number] review of systems. PHYSICAL EXAMINATION: General appearance is in acute distress. HEENT: Normocephalic and nontraumatic. Eyes, nose, ears, and throat are unremarkable. Neck is supple. No lymphadenopathy. No crepitus. Cardiovascular: S1, S2, regular rate and rhythm. Pulmonary: breath sounds decreased to auscultation bilaterally. Abdomen: Bowel sounds are positive. Extremities: No rash, lesions, or edema. No restriction of range of motion NEUROLOGICAL EXAMINATION: Unresponsive. Not able to follow commands. Not oriented to time, place and person. PERRL. EOMI not elicited due to not follow commands. CN: no acute focal findings. Muscle tone: within normal. Muscle strength: moves all extremities to stimuli. DTR: 1-2 Plantar reflex: Neutral response bilaterally Gait: not examined in bed. Sensory exam: withdrew to stimuli. Not able to access cerebellar signs. Not able to perform F-T-N test this time. Current Medications Current Medications Current Medications Sodium Chloride (Iv Sodium Chloride 0.9% 1000ml Bag) 1,770 ml @ 1,770 mls/hr Q1H IV Last administered on 01/02/17 23:20; Start 01/02/17 at 23:45; Stop at 09:06; Status DC Acetaminophen 650 mg 650 mg 1X ONCE NV Last administered on 01/03/17 00:08; Start 01/02/17 at 23:45; Stop 01/02/17 at 23:46; Status DC Levofloxacin/ Dextrose (LEVAQUIN 750mg PREMIX) 150 ml @ 100 mls/hr 1X ONCE IV Last administered on 01/03/17 00:47; Start 01/03/17 at 00:30; Stop 01/03/17 at 01:59; Status DC Methylprednisolone Sodium Succinate 125 mg 125 mg 1X ONCE IV Last administered on 01/03/17 00:45; Start 01/03/17 at 00:30; Stop 01/03/17 at 00:31 ; Status DC Nitroglycerin/ Dextrose 250 ml @ 0 mls/hr 1X ONCE IV Last administered on 01/03 00:45; Start 01/03/17 at 00:30; Stop 01/03/17 at 00:31; Status DC Sodium Chloride (Iv Sodium Chloride 0.9% 1000ml Bag) 1,000 ml @ 125 mls/hr 1X ONCE IV ; Start 01/03/17 at 00:30; Stop 01/03/17 at 08:29; Status Cancel Aspirin (Fabiola Aspirin) 325 mg 1X ONCE PO ; Start 01/03/17 at 00:30; Stop 01/03 at 00:31; Status DC Vancomycin HCl (Vanco Per Pharmacy) 1 each PRN DAILY PRN MC SEE COMMENTS Last administered on 01/03/17 02:26; Start 01/03/17 at 02:30 Ondansetron HCl 4 mg 4 mg PRN Q8HRS PRN IV NAUSEA/VOMITING; Start 01/03/17 at 00:45; Stop 01/04/17 at 00:44 Sodium Chloride (Iv Sodium Chloride 0.9% 1000ml Bag) 1,000 ml @ 100 mls/hr Q10H IV ; Start 01/03/17 at 01:00; Stop 01/03/17 at 02:56; Status DC Acetaminophen (Tylenol) 650 mg PRN Q4HRS PRN PO FEVER; Start 01/03/17 at 00:45 ; Stop 01/04/17 at 00:44 Albuterol/ Ipratropium (Duoneb) 3 ml RTQID NEB ; Start 01/03/17 at 08:00; Stop 01/03/17 at 08:05; Status DC Insulin Aspart (Novolog) 0-5 UNITS TIDWMEALS SQ ; Start 01/03/17 at 08:00 Dextrose 12.5 gm PRN Q15MIN PRN IV SEE COMMENTS; Start 01/03/17 at 00:45; Stop 01/03/17 at 10:13; Status DC Aspirin 300 mg 300 mg 1X ONCE NV Last administered on 01/03/17 01:23; Start 01/03/17 at 01:15; Stop 01/03/17 at 01:16; Status DC Vancomycin HCl 1.5 gm/Sodium Chloride 500 ml @ 250 mls/hr 1X ONCE IV Last administered on 01/03/17 02:33; Start 01/03/17 at 02:30; Stop 01/03/17 at 04:29 ; Status DC Vancomycin HCl/ Sodium Chloride (Iv Sodium Chloride 0.9% 250ml) 250 ml @ 250 mls/hr Q24H IV ; Start 01/04/17 at 02:30 Vancomycin HCl 1 each 1X ONCE MC ; Start 01/05/17 at 02:00; Stop 01/05/17 at 02 :01 Pneumococcal Polyvalent Vaccine 1 each 1 each 1X ONCE MC ; Start 01/03/17 at 02 :45; Stop 01/03/17 at 02:46; Status UNV Nitroglycerin/ Dextrose 250 ml @ 0 mls/hr CONT PRN IV SEE I/O RECORD; Start 08/12 at 03:00 Sodium Chloride (Iv Sodium Chloride 0.9% 1000ml Bag) 1,000 ml @ 125 mls/hr Q8H IV Last administered on 01/03/17 03:00; Start 01/03/17 at 03:00; Stop at 06:22; Status DC Furosemide 40 mg 40 mg 1X ONCE IVP Last administered on 01/03/17 06:14; Start 01/03/17 at 06:15; Stop 01/03/17 at 06:16; Status DC Piperacillin Sod/ Tazobactam Sod/ Sodium Chloride (Zosyn/Iv Sodium Chloride 0.9 % 50ml) 50 ml @ 100 mls/hr Q6HRS IV ; Start 01/03/17 at 08:00; Stop 01/03/17 at 08:08; Status DC Albuterol/ Ipratropium (Duoneb) 3 ml Q4HRS W/A NEB Last administered on 11:00; Start 01/03/17 at 10:00 Prednisone (Prednisone) 60 mg DAILY PO ; Start 01/03/17 at 09:00; Stop 01/03/17 at 09:00; Status DC Methylprednisolone Sodium Succinate (Solu-Medrol 125mg Vial) 125 mg BID IV Last administered on 01/03/17 09:51; Start 01/03/17 at 09:00; Stop 01/03/17 at 11:44; Status DC Aspirin (Ecotrin) 81 mg DAILY PO ; Start 01/03/17 at 09:00; Stop 01/03/17 at 10: 16; Status DC Fluticasone Propionate (Flonase) 1 spray BID NS ; Start 01/03/17 at 09:00 Glipizide (Glucotrol) 2.5 mg AFTRNOON PO ; Start 01/03/17 at 13:00 Glipizide (Glucotrol) 5 mg DAILYAC PO ; Start 01/04/17 at 07:30 Lisinopril (Prinivil) 20 mg DAILY PO ; Start 01/03/17 at 09:00; Stop 01/03/17 at 10:10; Status DC Lorazepam (Ativan) 0.125 mg PRN TID PRN PO ANXIETY / AGITATION; Start 01/03/17 at 08:15 Famotidine 20 mg 20 mg BID PO ; Start 01/03/17 at 09:00 Piperacillin Sod/ Tazobactam Sod/ Sodium Chloride (Zosyn/Iv Sodium Chloride 0.9 % 100ml) 100 ml @ 200 mls/hr Q6HRS IV Last administered on 01/03/17 12:29; Start 01/03/17 at 12:00 Piperacillin Sod/ Tazobactam Sod (Zosyn Per Pharmacy) 1 each PRN DAILY PRN MC SEE COMMENTS; Start 01/03/17 at 08:15; Status UNV Insulin Aspart (Novolog) 0-7 UNITS TIDWMEALS SQ ; Start 01/03/17 at 12:00; Status UNV Dextrose 12.5 gm PRN Q15MIN PRN IV SEE COMMENTS; Start 01/03/17 at 08:15 Lorazepam (Ativan) 8 mg 1X STAT IV ; Start 01/03/17 at 08:26; Stop 01/03/17 at 08:29; Status DC Lorazepam (Ativan) 2 mg 1X ONCE IV Last administered on 01/03/17 08:39; Start 01/03/17 at 08:45; Stop 01/03/17 at 08:46; Status DC Lorazepam (Ativan) 2 mg PRN Q4HRS PRN IV ANXIETY / AGITATION; Start 01/03/17 at 08:45 Lorazepam (Ativan) 2 mg PRN Q1HR PRN IV ANXIETY / AGITATION; Start 01/03/17 at 08:45 Insulin Detemir (Levemir) 8 units 1X ONCE SQ Last administered on 01/03/17 09 :53; Start 01/03/17 at 09:15; Stop 01/03/17 at 09:17; Status DC Enoxaparin Sodium (Lovenox Per Pharmacy Prophylaxis Dosing) 1 each PRN DAILY PRN MC SEE COMMENTS; Start 01/03/17 at 09:15 Enoxaparin Sodium (Lovenox 40mg Syringe) 40 mg DAILY SQ Last administered on 10:30; Start 01/03/17 at 10:00 Metoprolol Tartrate (Lopressor) 5 mg Q6HRS IVP Last administered on 01/03/17 10:30; Start 01/03/17 at 11:00 Nitroglycerin (Nitro-Dur 0.4mg) 1 patch DAILY TD ; Start 01/03/17 at 11:00; Stop 01/03/17 at 11:56; Status DC Hydralazine HCl (Apresoline) 10 mg PRN Q4HRS PRN IVP ELEVATED BP, SEE COMMENTS ; Start 01/03/17 at 10:15 Aspirin 150 mg 150 mg DAILY NV ; Start 01/04/17 at 09:00 Sodium Chloride (Iv Sodium Chloride 0.9% 1000ml Bag) 1,000 ml @ 75 mls/hr [id number] IV Last administered on 01/03/17t 10:31; Start 01/03/17 at 10:30 Methylprednisolone Sodium Succinate (Solu-Medrol 125mg Vial) 60 mg BID IV ; Start 01/03/17 at 21:00 Gadobutrol (Gadavist) 5 mmol 1X ONCE IV ; Start 01/03/17 at 14:15; Stop at 14:16 Active Scripts Active Cipro (Ciprofloxacin Hcl) 500 Mg Tablet 1 Tab PO BID PRN Reported Ipratropium [place] 0.2 Mg/1 Ml Solution 1 Vial NEB QID Ativan (Lorazepam) 0.5 Mg Tablet 0.125 Mg PO TID PRN Montelukast Sodium Tablet (Montelukast Sodium) 10 Mg Tablet 10 Mg PO HS Glipizide 5 Mg Tablet 5 Mg PO DAILYAC Mobic (Meloxicam) 7.5 Mg Tablet 7.5 Mg PO DAILY Zantac (Ranitidine Hcl) 150 Mg Tablet 150 Mg PO BID Lisinopril 20 Mg Tablet 20 Mg PO DAILY Glipizide 5 Mg Tablet 2.5 Mg PO AFTRNOON Tudorza Pressair (Aclidinium [place]) 400 Mcg Aer.pow.ba 400 Mcg IH Metformin Hcl 500 Mg Tablet 500 Mg PO BIDWMEALS Fluticasone Propionate Nasal [place] (Fluticasone Propionate) 16 Gm [place].susp 1 [place] NS BID Aspir 81 (Aspirin) 81 Mg Tablet.dr 81 Mg PO [megared] Allergies Allergies: Coded Allergies: nicotine (Verified Allergy, Intermediate, allergic to adhesive on patch, ) erythromycin base (Verified Adverse Reaction, Intermediate, diarrhea, 01/03) Vitals VITALS Vital Signs Date Time Temp Pulse Resp B/P Pulse Ox O2 Delivery O2 Flow Rate FiO2 01/03/17 13:00 103 25 115/32 95 Nasal Cannula 3.0 01/03/17 12:00 100.4 100.4 Labs Labs Laboratory Tests Test 01/02/17 23:10 01/02/17 23:12 01/02/17 23:42 01/03/17 00:20 White Blood Count 13.9x10^3/uL (4.0-11.0) Red Blood Count 4.66x10^6/uL (4.30-5.70) Hemoglobin 13.6g/dL (13.0-17.5) Hematocrit 41.8% (39.0-53.0) Mean Corpuscular Volume 90fL (79-100) Mean Corpuscular Hemoglobin 29pg (25-35) Mean Corpuscular Hemoglobin Concent 32g/dL (31-37) Red Cell Distribution Width 14.8% (11.5-14.5) Platelet Count 185x10^3/uL (140-400) Neutrophils (%) (Auto) 83% (31-73) Lymphocytes (%) (Auto) 5% (24-48) Monocytes (%) (Auto) 12% (0-9) Eosinophils (%) (Auto) 0% (0-3) Basophils (%) (Auto) 0% (0-3) Neutrophils # (Auto) 11.6x10^3uL (1.8-7.7) Lymphocytes # (Auto) 0.6x10^3/uL (1.0-4.8) Monocytes # (Auto) 1.7x10^3/uL (0.0-1.1) Eosinophils # (Auto) 0.0x10^3/uL (0.0-0.7) Basophils # (Auto) 0.0x10^3/uL (0.0-0.2) Prothrombin Time 14.8SEC (11.7-14.0) Prothromb Time International Ratio 1.2 (0.8-1.1) Activated Partial Thromboplast Time 37SEC (24-38) Sodium Level 138mmol/L (136-145) Potassium Level 5.2mmol/L (3.5-5.1) Chloride Level 97mmol/L (98-107) Carbon Dioxide Level 39mmol/L (21-32) Anion Gap 2 (6-14) Blood Urea Nitrogen 35mg/dL (8-26) Creatinine 0.9mg/dL (0.7-1.3) Estimated GFR (Cockcroft-Gault) 83.7 BUN/Creatinine Ratio 39 (6-20) Glucose Level 210mg/dL (70-99) Lactic Acid Level 4.1mmol/L (0.4-2.0) 0.9mmol/L (0.4-2.0) Calcium Level 9.4mg/dL (8.5-10.1) Total Bilirubin 0.7mg/dL (0.2-1.0) Aspartate Amino Transf (AST/SGOT) 18U/L (15-37) Alanine Aminotransferase (ALT/SGPT) 32U/L (16-63) Alkaline Phosphatase 40U/L (46-116) Troponin I Quantitative 0.644ng/mL (0.000-0.055) GK-Erp-M-Type Natriuretic Peptide 54851hq/mL (0-124) Total Protein 7.1g/dL (6.4-8.2) Albumin 3.9g/dL (3.4-5.0) Albumin/Globulin Ratio 1.2 (1.0-1.7) Influenza Type A Antigen Negative (NEGATIVE) Influenza Type B Antigen Negative (NEGATIVE) Urine Collection Type U cath Urine Color Yellow Urine Clarity Clear Urine pH 6.0 Urine Specific [place] 1.020 Urine Protein 100mg/dL (NEG-TRACE) Urine Glucose (UA) 500mg/dL (NEG) Urine Ketones (Stick) Tracemg/dL (NEG) Urine Blood Small (NEG) Urine Nitrite Negative (NEG) Urine Bilirubin Negative (NEG) Urine Urobilinogen Dipstick 1.0mg/dL (0.2 mg/dL) Urine Leukocyte Esterase Negative (NEG) Urine RBC 1-2/HPF (0-2) Urine WBC 1-4/HPF (0-4) Urine Squamous Epithelial Cells Few/LPF Urine Amorphous Sediment Present/HPF Urine Bacteria 0/HPF (0-FEW) Urine Hyaline Casts Few/HPF Urine Mucus Slight/LPF Urine Opiates Screen Neg (NEG) Urine Methadone Screen Neg (NEG) Urine Barbiturates Neg (NEG) Urine Phencyclidine Screen Neg (NEG) Urine Amphetamine/Methamphetamine Neg (NEG) Urine Benzodiazepines Screen Neg (NEG) Urine Cocaine Screen Neg (NEG) Urine Cannabinoids Screen Neg (NEG) Urine Ethyl Alcohol Neg (NEG) O2 Saturation 96% (92-99) Arterial Blood pH 7.40 (7.35-7.45) Arterial Blood pCO2 at Patient Temp 54mmHg (35-46) Arterial Blood pO2 at Patient Temp 80mmHg (65-108) Arterial Blood HCO3 32mmol/L (21-28) Arterial Blood Base Excess 6mmol/L (-3-3) FiO2 28 Test 01/03/17 06:35 01/03/17 08:26 01/03/17 08:41 01/03/17 09:30 Sodium Level 137mmol/L (136-145) Potassium Level 4.1mmol/L (3.5-5.1) Chloride Level 96mmol/L (98-107) Carbon Dioxide Level 36mmol/L (21-32) Anion Gap 5 (6-14) Blood Urea Nitrogen 32mg/dL (8-26) Creatinine 0.7mg/dL (0.7-1.3) Estimated GFR (Cockcroft-Gault) 111.8 Glucose Level 227mg/dL (70-99) Calcium Level 8.4mg/dL (8.5-10.1) Magnesium Level 2.0mg/dL (1.8-2.4) Troponin I Quantitative 0.417ng/mL (0.000-0.055) Triglycerides Level 49mg/dL (0-150) Cholesterol Level 133mg/dL (0-200) LDL Cholesterol, Calculated 68mg/dL (0-100) VLDL Cholesterol, Calculated 10mg/dL (0-40) HDL Cholesterol 55mg/dL (40-60) Cholesterol/HDL Ratio 2.4 O2 Saturation 94% (92-99) Arterial Blood pH 7.41 (7.35-7.45) Arterial Blood pH (Temp corrected) 7.39 Arterial Blood pCO2 at Patient Temp 56mmHg (35-46) Arterial Blood pCO2 (Temp correct) 59mmHg Arterial Blood pO2 at Patient Temp 68mmHg (65-108) Arterial Blood pO2 (Temp corrected) 74mmHg Arterial Blood HCO3 35mmol/L (21-28) Arterial Blood Base Excess 8mmol/L (-3-3) FiO2 32% Glucose (Fingerstick) 216mg/dL (70-99) White Blood Count 9.0x10^3/uL (4.0-11.0) Red Blood Count 4.08x10^6/uL (4.30-5.70) Hemoglobin 12.0g/dL (13.0-17.5) Hematocrit 35.6% (39.0-53.0) Mean Corpuscular Volume 87fL (79-100) Mean Corpuscular Hemoglobin 29pg (25-35) Mean Corpuscular Hemoglobin Concent 34g/dL (31-37) Red Cell Distribution Width 14.5% (11.5-14.5) Platelet Count 162x10^3/uL (140-400) Neutrophils (%) (Auto) 89% (31-73) Lymphocytes (%) (Auto) 4% (24-48) Monocytes (%) (Auto) 7% (0-9) Eosinophils (%) (Auto) 0% (0-3) Basophils (%) (Auto) 0% (0-3) Neutrophils # (Auto) 8.0x10^3uL (1.8-7.7) Lymphocytes # (Auto) 0.4x10^3/uL (1.0-4.8) Monocytes # (Auto) 0.6x10^3/uL (0.0-1.1) Eosinophils # (Auto) 0.0x10^3/uL (0.0-0.7) Basophils # (Auto) 0.0x10^3/uL (0.0-0.2) Segmented Neutrophils % 82% (35-66) Band Neutrophils % 7% (0-9) Lymphocytes % 5% (24-48) Monocytes % 6% (0-10) Platelet Estimate Adequate (ADEQUATE) Creatine Kinase 47U/L (39-308) Test 01/03/17 12:13 01/03/17 12:30 Glucose (Fingerstick) 222mg/dL (70-99) Troponin I Quantitative 0.365ng/mL (0.000-0.055) Laboratory Tests Test 01/02/17 23:10 01/02/17 23:12 01/02/17 23:42 01/03/17 00:20 White Blood Count 13.9x10^3/uL (4.0-11.0) Red Blood Count 4.66x10^6/uL (4.30-5.70) Hemoglobin 13.6g/dL (13.0-17.5) Hematocrit 41.8% (39.0-53.0) Mean Corpuscular Volume 90fL (79-100) Mean Corpuscular Hemoglobin 29pg (25-35) Mean Corpuscular Hemoglobin Concent 32g/dL (31-37) Red Cell Distribution Width 14.8% (11.5-14.5) Platelet Count 185x10^3/uL (140-400) Neutrophils (%) (Auto) 83% (31-73) Lymphocytes (%) (Auto) 5% (24-48) Monocytes (%) (Auto) 12% (0-9) Eosinophils (%) (Auto) 0% (0-3) Basophils (%) (Auto) 0% (0-3) Neutrophils # (Auto) 11.6x10^3uL (1.8-7.7) Lymphocytes # (Auto) 0.6x10^3/uL (1.0-4.8) Monocytes # (Auto) 1.7x10^3/uL (0.0-1.1) Eosinophils # (Auto) 0.0x10^3/uL (0.0-0.7) Basophils # (Auto) 0.0x10^3/uL (0.0-0.2) Prothrombin Time 14.8SEC (11.7-14.0) Prothromb Time International Ratio 1.2 (0.8-1.1) Activated Partial Thromboplast Time 37SEC (24-38) Sodium Level 138mmol/L (136-145) Potassium Level 5.2mmol/L (3.5-5.1) Chloride Level 97mmol/L (98-107) Carbon Dioxide Level 39mmol/L (21-32) Anion Gap 2 (6-14) Blood Urea Nitrogen 35mg/dL (8-26) Creatinine 0.9mg/dL (0.7-1.3) Estimated GFR (Cockcroft-Gault) 83.7 BUN/Creatinine Ratio 39 (6-20) Glucose Level 210mg/dL (70-99) Lactic Acid Level 4.1mmol/L (0.4-2.0) 0.9mmol/L (0.4-2.0) Calcium Level 9.4mg/dL (8.5-10.1) Total Bilirubin 0.7mg/dL (0.2-1.0) Aspartate Amino Transf (AST/SGOT) 18U/L (15-37) Alanine Aminotransferase (ALT/SGPT) 32U/L (16-63) Alkaline Phosphatase 40U/L (46-116) Troponin I Quantitative 0.644ng/mL (0.000-0.055) YM-Jog-N-Type Natriuretic Peptide 48263lz/mL (0-124) Total Protein 7.1g/dL (6.4-8.2) Albumin 3.9g/dL (3.4-5.0) Albumin/Globulin Ratio 1.2 (1.0-1.7) Influenza Type A Antigen Negative (NEGATIVE) Influenza Type B Antigen Negative (NEGATIVE) Urine Collection Type U cath Urine Color Yellow Urine Clarity Clear Urine pH 6.0 Urine Specific [place] 1.020 Urine Protein 100mg/dL (NEG-TRACE) Urine Glucose (UA) 500mg/dL (NEG) Urine Ketones (Stick) Tracemg/dL (NEG) Urine Blood Small (NEG) Urine Nitrite Negative (NEG) Urine Bilirubin Negative (NEG) Urine Urobilinogen Dipstick 1.0mg/dL (0.2 mg/dL) Urine Leukocyte Esterase Negative (NEG) Urine RBC 1-2/HPF (0-2) Urine WBC 1-4/HPF (0-4) Urine Squamous Epithelial Cells Few/LPF Urine Amorphous Sediment Present/HPF Urine Bacteria 0/HPF (0-FEW) Urine Hyaline Casts Few/HPF Urine Mucus Slight/LPF Urine Opiates Screen Neg (NEG) Urine Methadone Screen Neg (NEG) Urine Barbiturates Neg (NEG) Urine Phencyclidine Screen Neg (NEG) Urine Amphetamine/Methamphetamine Neg (NEG) Urine Benzodiazepines Screen Neg (NEG) Urine Cocaine Screen Neg (NEG) Urine Cannabinoids Screen Neg (NEG) Urine Ethyl Alcohol Neg (NEG) O2 Saturation 96% (92-99) Arterial Blood pH 7.40 (7.35-7.45) Arterial Blood pCO2 at Patient Temp 54mmHg (35-46) Arterial Blood pO2 at Patient Temp 80mmHg (65-108) Arterial Blood HCO3 32mmol/L (21-28) Arterial Blood Base Excess 6mmol/L (-3-3) FiO2 28 Test 01/03/17 06:35 01/03/17 08:26 01/03/17 08:41 01/03/17 09:30 Sodium Level 137mmol/L (136-145) Potassium Level 4.1mmol/L (3.5-5.1) Chloride Level 96mmol/L (98-107) Carbon Dioxide Level 36mmol/L (21-32) Anion Gap 5 (6-14) Blood Urea Nitrogen 32mg/dL (8-26) Creatinine 0.7mg/dL (0.7-1.3) Estimated GFR (Cockcroft-Gault) 111.8 Glucose Level 227mg/dL (70-99) Calcium Level 8.4mg/dL (8.5-10.1) Magnesium Level 2.0mg/dL (1.8-2.4) Troponin I Quantitative 0.417ng/mL (0.000-0.055) Triglycerides Level 49mg/dL (0-150) Cholesterol Level 133mg/dL (0-200) LDL Cholesterol, Calculated 68mg/dL (0-100) VLDL Cholesterol, Calculated 10mg/dL (0-40) HDL Cholesterol 55mg/dL (40-60) Cholesterol/HDL Ratio 2.4 O2 Saturation 94% (92-99) Arterial Blood pH 7.41 (7.35-7.45) Arterial Blood pH (Temp corrected) 7.39 Arterial Blood pCO2 at Patient Temp 56mmHg (35-46) Arterial Blood pCO2 (Temp correct) 59mmHg Arterial Blood pO2 at Patient Temp 68mmHg (65-108) Arterial Blood pO2 (Temp corrected) 74mmHg Arterial Blood HCO3 35mmol/L (21-28) Arterial Blood Base Excess 8mmol/L (-3-3) FiO2 32% Glucose (Fingerstick) 216mg/dL (70-99) White Blood Count 9.0x10^3/uL (4.0-11.0) Red Blood Count 4.08x10^6/uL (4.30-5.70) Hemoglobin 12.0g/dL (13.0-17.5) Hematocrit 35.6% (39.0-53.0) Mean Corpuscular Volume 87fL (79-100) Mean Corpuscular Hemoglobin 29pg (25-35) Mean Corpuscular Hemoglobin Concent 34g/dL (31-37) Red Cell Distribution Width 14.5% (11.5-14.5) Platelet Count 162x10^3/uL (140-400) Neutrophils (%) (Auto) 89% (31-73) Lymphocytes (%) (Auto) 4% (24-48) Monocytes (%) (Auto) 7% (0-9) Eosinophils (%) (Auto) 0% (0-3) Basophils (%) (Auto) 0% (0-3) Neutrophils # (Auto) 8.0x10^3uL (1.8-7.7) Lymphocytes # (Auto) 0.4x10^3/uL (1.0-4.8) Monocytes # (Auto) 0.6x10^3/uL (0.0-1.1) Eosinophils # (Auto) 0.0x10^3/uL (0.0-0.7) Basophils # (Auto) 0.0x10^3/uL (0.0-0.2) Segmented Neutrophils % 82% (35-66) Band Neutrophils % 7% (0-9) Lymphocytes % 5% (24-48) Monocytes % 6% (0-10) Platelet Estimate Adequate (ADEQUATE) Creatine Kinase 47U/L (39-308) Test 01/03/17 12:13 01/03/17 12:30 Glucose (Fingerstick) 222mg/dL (70-99) Troponin I Quantitative 0.365ng/mL (0.000-0.055) INDIGO ROSALES MD Jan 03, 2017 14:39
--- NOTE | 2017-01-03 15:40 | RAD ---
PROCEDURE Brain MRI with and without contrast. HISTORY Seizure. TECHNIQUE Multiplanar and multi sequence magnetic resonance imaging of the brain was performed prior to and following the administration of 5 cc Gadavist intravenous contrast. COMPARISON Head CT dated 01/02/2017. FINDINGS There is increased signal on diffusion weighted images throughout the left temporal lobe and medial right temporal lobe as well as the left insular cortex and external capsule. There is also slight increased signal within the medial left greater than right frontal lobe cortex, a component of which may be artifactual. There is no susceptibility effect to suggest hemorrhage. There is no mass effect or midline shift. There is no hydrocephalus. There are multiple scattered focal areas of signal change throughout the cerebral white matter, a nonspecific finding likely due to chronic small vessel disease. There is a suspected superimposed chronic left frontal periventricular infarct. There is also a chronic infarct within the left jodi end foci of suspected encephalomalacia within the left cerebellum. No abnormal enhancing lesion is seen. The orbits are unremarkable. The paranasal sinuses mastoid air cells are unremarkable. There are normal flow voids within the cerebral vessels. IMPRESSION 1. Restricted diffusion within the left temporal lobe and medial right temporal lobe as well as the left insular cortex and external capsule. There may also be involvement of the inferior medial frontal lobe cortex. 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 However, the differential also includes acute or subacute infarction. Short-term followup is indicated. 2. Scattered focal areas of signal change within the cerebral white matter, likely due to chronic small vessel disease. 3. 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 Findings were discussed with Charisma, the nurse caring for the patient, at 1530 hours on 01/03/2017. Electronically signed by: Elizabeth Tapia (Jan 03, 2017 15:38:28)
--- NOTE | 2017-01-03 16:15 | PDOC2 ---
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 Metabolic encephalopathy. Slurred speech x 6 days before to ER. Seizure x 1 Respiratory distress/failure. Lactic acidosis. COPD DM HTN HLD RECOMMENDATIONS/PLAN: ASA 300 mg rectal. Brain MRI w/wo contrast plus seizure protocol, performed, results as above. Carotid A US + Doppler. Echo with bubble study. Fasting lipid panel and other labs Ativan 2 mg IV q 4 h PRN seizure. If has further seizure, Keppra 500 mg IV q12h. Treat medical diseases. Smoking. Dis cussed in detail with his at bedside in ICU. HISTORY OF THE PRESENT ILLNESS: 71-y-old male patient with above medical diseases has been having symptoms of difficult breathing, slurred speech, word finding difficulties, and mental status changes to come to the ER of [facility] on 01/03. No focalized motor or sensory deficits noted. He had a seizure on 01/03 that is new onset per his , but she did not know the detail about his seizure. PAST MEDICAL HISTORY: Please see above. PAST SURGERY HISTORY: No major surgery recently. ALLERGY: Unknown MEDICATIONS: Refer to [facility] HISTORY: Non contributory. SOCIAL HISTORY: Lives with his . Denies illicit drug use. He smokes cigarettes for many years. He drinks alcohol from time to time. REVIEW OF SYSTEMS: Constitutional: No cachexia. Head: No recent traumatic brain or head injury. Skin: No edema, or rash. Ear: No infection, tinnitus. Eyes: No vision loss or color blindness. Nose: No bleeding or purulent discharges. Hearing: Hearing decrease. Neck: No recent injury. Cardiac: HTN. Pulmonary: COPD. GI: No GI ulcer, GI bleeding. Urinary/genital: UTI. Endocrinologic: Diabetes Mellitus Skeletomuscular: No muscular atrophy, deformity. Neurological: see HP. Psychiatric: Denies drug use/abuse. Otherwise, not [id number] review of systems. PHYSICAL EXAMINATION: General appearance is in acute distress. HEENT: Normocephalic and nontraumatic. Eyes, nose, ears, and throat are unremarkable. Neck is supple. No lymphadenopathy. No crepitus. Cardiovascular: S1, S2, regular rate and rhythm. Pulmonary: breath sounds decreased to auscultation bilaterally. Abdomen: Bowel sounds are positive. Extremities: No rash, lesions, or edema. No restriction of range of motion NEUROLOGICAL EXAMINATION: Unresponsive. Not able to follow commands. Not oriented to time, place and person. PERRL. EOMI not elicited due to not follow commands. CN: no acute focal findings. Muscle tone: within normal. Muscle strength: moves all extremities to stimuli. DTR: 1-2 Plantar reflex: Neutral response bilaterally Gait: not examined in bed. Sensory exam: withdrew to stimuli. Not able to access cerebellar signs. Not able to perform F-T-N test this time. Current Medications Current Medications Current Medications Sodium Chloride (Iv Sodium Chloride 0.9% 1000ml Bag) 1,770 ml @ 1,770 mls/hr Q1H IV Last administered on 01/02/17 23:20; Start 01/02/17 at 23:45; Stop at 09:06; Status DC Acetaminophen 650 mg 650 mg 1X ONCE TX Last administered on 01/03/17 00:08; Start 01/02/17 at 23:45; Stop 01/02/17 at 23:46; Status DC Levofloxacin/ Dextrose (LEVAQUIN 750mg PREMIX) 150 ml @ 100 mls/hr 1X ONCE IV Last administered on 01/03/17 00:47; Start 01/03/17 at 00:30; Stop 01/03/17 at 01:59; Status DC Methylprednisolone Sodium Succinate 125 mg 125 mg 1X ONCE IV Last administered on 01/03/17 00:45; Start 01/03/17 at 00:30; Stop 01/03/17 at 00:31 ; Status DC Nitroglycerin/ Dextrose 250 ml @ 0 mls/hr 1X ONCE IV Last administered on 01/03 00:45; Start 01/03/17 at 00:30; Stop 01/03/17 at 00:31; Status DC Sodium Chloride (Iv Sodium Chloride 0.9% 1000ml Bag) 1,000 ml @ 125 mls/hr 1X ONCE IV ; Start 01/03/17 at 00:30; Stop 01/03/17 at 08:29; Status Cancel Aspirin (Fabiola Aspirin) 325 mg 1X ONCE PO ; Start 01/03/17 at 00:30; Stop 01/03 at 00:31; Status DC Vancomycin HCl (Vanco Per Pharmacy) 1 each PRN DAILY PRN MC SEE COMMENTS Last administered on 01/03/17 02:26; Start 01/03/17 at 02:30 Ondansetron HCl 4 mg 4 mg PRN Q8HRS PRN IV NAUSEA/VOMITING; Start 01/03/17 at 00:45; Stop 01/04/17 at 00:44 Sodium Chloride (Iv Sodium Chloride 0.9% 1000ml Bag) 1,000 ml @ 100 mls/hr Q10H IV ; Start 01/03/17 at 01:00; Stop 01/03/17 at 02:56; Status DC Acetaminophen (Tylenol) 650 mg PRN Q4HRS PRN PO FEVER; Start 01/03/17 at 00:45 ; Stop 01/04/17 at 00:44 Albuterol/ Ipratropium (Duoneb) 3 ml RTQID NEB ; Start 01/03/17 at 08:00; Stop 01/03/17 at 08:05; Status DC Insulin Aspart (Novolog) 0-5 UNITS TIDWMEALS SQ ; Start 01/03/17 at 08:00 Dextrose 12.5 gm PRN Q15MIN PRN IV SEE COMMENTS; Start 01/03/17 at 00:45; Stop 01/03/17 at 10:13; Status DC Aspirin 300 mg 300 mg 1X ONCE TX Last administered on 01/03/17 01:23; Start 01/03/17 at 01:15; Stop 01/03/17 at 01:16; Status DC Vancomycin HCl 1.5 gm/Sodium Chloride 500 ml @ 250 mls/hr 1X ONCE IV Last administered on 01/03/17 02:33; Start 01/03/17 at 02:30; Stop 01/03/17 at 04:29 ; Status DC Vancomycin HCl/ Sodium Chloride (Iv Sodium Chloride 0.9% 250ml) 250 ml @ 250 mls/hr Q24H IV ; Start 01/04/17 at 02:30 Vancomycin HCl 1 each 1X ONCE MC ; Start 01/05/17 at 02:00; Stop 01/05/17 at 02 :01 Pneumococcal Polyvalent Vaccine 1 each 1 each 1X ONCE MC ; Start 01/03/17 at 02 :45; Stop 01/03/17 at 02:46; Status UNV Nitroglycerin/ Dextrose 250 ml @ 0 mls/hr CONT PRN IV SEE I/O RECORD; Start 08/12 at 03:00 Sodium Chloride (Iv Sodium Chloride 0.9% 1000ml Bag) 1,000 ml @ 125 mls/hr Q8H IV Last administered on 01/03/17 03:00; Start 01/03/17 at 03:00; Stop at 06:22; Status DC Furosemide 40 mg 40 mg 1X ONCE IVP Last administered on 01/03/17 06:14; Start 01/03/17 at 06:15; Stop 01/03/17 at 06:16; Status DC Piperacillin Sod/ Tazobactam Sod/ Sodium Chloride (Zosyn/Iv Sodium Chloride 0.9 % 50ml) 50 ml @ 100 mls/hr Q6HRS IV ; Start 01/03/17 at 08:00; Stop 01/03/17 at 08:08; Status DC Albuterol/ Ipratropium (Duoneb) 3 ml Q4HRS W/A NEB Last administered on 11:00; Start 01/03/17 at 10:00; Stop 01/03/17 at 15:41; Status DC Prednisone (Prednisone) 60 mg DAILY PO ; Start 01/03/17 at 09:00; Stop 01/03/17 at 09:00; Status DC Methylprednisolone Sodium Succinate (Solu-Medrol 125mg Vial) 125 mg BID IV Last administered on 01/03/17 09:51; Start 01/03/17 at 09:00; Stop 01/03/17 at 11:44; Status DC Aspirin (Ecotrin) 81 mg DAILY PO ; Start 01/03/17 at 09:00; Stop 01/03/17 at 10: 16; Status DC Fluticasone Propionate (Flonase) 1 spray BID NS ; Start 01/03/17 at 09:00 Glipizide (Glucotrol) 2.5 mg AFTRNOON PO ; Start 01/03/17 at 13:00 Glipizide (Glucotrol) 5 mg DAILYAC PO ; Start 01/04/17 at 07:30 Lisinopril (Prinivil) 20 mg DAILY PO ; Start 01/03/17 at 09:00; Stop 01/03/17 at 10:10; Status DC Lorazepam (Ativan) 0.125 mg PRN TID PRN PO ANXIETY / AGITATION; Start 01/03/17 at 08:15 Famotidine 20 mg 20 mg BID PO ; Start 01/03/17 at 09:00 Piperacillin Sod/ Tazobactam Sod/ Sodium Chloride (Zosyn/Iv Sodium Chloride 0.9 % 100ml) 100 ml @ 200 mls/hr Q6HRS IV Last administered on 01/03/17 12:29; Start 01/03/17 at 12:00 Piperacillin Sod/ Tazobactam Sod (Zosyn Per Pharmacy) 1 each PRN DAILY PRN MC SEE COMMENTS; Start 01/03/17 at 08:15; Status UNV Insulin Aspart (Novolog) 0-7 UNITS TIDWMEALS SQ ; Start 01/03/17 at 12:00; Status UNV Dextrose 12.5 gm PRN Q15MIN PRN IV SEE COMMENTS; Start 01/03/17 at 08:15 Lorazepam (Ativan) 8 mg 1X STAT IV ; Start 01/03/17 at 08:26; Stop 01/03/17 at 08:29; Status DC Lorazepam (Ativan) 2 mg 1X ONCE IV Last administered on 01/03/17 08:39; Start 01/03/17 at 08:45; Stop 01/03/17 at 08:46; Status DC Lorazepam (Ativan) 2 mg PRN Q4HRS PRN IV ANXIETY / AGITATION; Start 01/03/17 at 08:45 Lorazepam (Ativan) 2 mg PRN Q1HR PRN IV ANXIETY / AGITATION; Start 01/03/17 at 08:45 Insulin Detemir (Levemir) 8 units 1X ONCE SQ Last administered on 01/03/17 09 :53; Start 01/03/17 at 09:15; Stop 01/03/17 at 09:17; Status DC Enoxaparin Sodium (Lovenox Per Pharmacy Prophylaxis Dosing) 1 each PRN DAILY PRN MC SEE COMMENTS; Start 01/03/17 at 09:15 Enoxaparin Sodium (Lovenox 40mg Syringe) 40 mg DAILY SQ Last administered on 10:30; Start 01/03/17 at 10:00 Metoprolol Tartrate (Lopressor) 5 mg Q6HRS IVP Last administered on 01/03/17 10:30; Start 01/03/17 at 11:00 Nitroglycerin (Nitro-Dur 0.4mg) 1 patch DAILY TD ; Start 01/03/17 at 11:00; Stop 01/03/17 at 11:56; Status DC Hydralazine HCl (Apresoline) 10 mg PRN Q4HRS PRN IVP ELEVATED BP, SEE COMMENTS ; Start 01/03/17 at 10:15 Aspirin 150 mg 150 mg DAILY TX ; Start 01/04/17 at 09:00 Sodium Chloride (Iv Sodium Chloride 0.9% 1000ml Bag) 1,000 ml @ 75 mls/hr [id number] IV Last administered on 01/03/17 10:31; Start 01/03/17 at 10:30 Methylprednisolone Sodium Succinate (Solu-Medrol 125mg Vial) 60 mg BID IV ; Start 01/03/17 at 21:00 Gadobutrol (Gadavist) 5 mmol 1X ONCE IV Last administered on 01/03/17 14:42; Start 01/03/17 at 14:15; Stop 01/03/17 at 14:25; Status DC Albuterol/ Ipratropium (Duoneb) 3 ml RTQID NEB Last administered on 01/03/17 15:44; Start 01/03/17 at 16:00 Active Scripts Active Cipro (Ciprofloxacin Hcl) 500 Mg Tablet 1 Tab PO BID PRN Reported Ipratropium [place] 0.2 Mg/1 Ml Solution 1 Vial NEB QID Ativan (Lorazepam) 0.5 Mg Tablet 0.125 Mg PO TID PRN Montelukast Sodium Tablet (Montelukast Sodium) 10 Mg Tablet 10 Mg PO HS Glipizide 5 Mg Tablet 5 Mg PO DAILYAC Mobic (Meloxicam) 7.5 Mg Tablet 7.5 Mg PO DAILY Zantac (Ranitidine Hcl) 150 Mg Tablet 150 Mg PO BID Lisinopril 20 Mg Tablet 20 Mg PO DAILY Glipizide 5 Mg Tablet 2.5 Mg PO AFTRNOON Tudorza Pressair (Aclidinium [place]) 400 Mcg Aer.pow.ba 400 Mcg IH Metformin Hcl 500 Mg Tablet 500 Mg PO BIDWMEALS Fluticasone Propionate Nasal [place] (Fluticasone Propionate) 16 Gm [place].susp 1 [place] NS BID Aspir 81 (Aspirin) 81 Mg Tablet. 81 Mg PO [megared] Allergies Allergies: Coded Allergies: nicotine (Verified Allergy, Intermediate, allergic to adhesive on patch, ) erythromycin base (Verified Adverse Reaction, Intermediate, diarrhea, 01/03) Vitals VITALS Vital Signs Date Time Temp Pulse Resp B/P Pulse Ox O2 Delivery O2 Flow Rate FiO2 01/03/17 15:44 100 Nasal Cannula 2.0 01/03/17 15:00 95 25 161/87 01/03/17 12:00 100.4 100.4 Labs Labs Laboratory Tests Test 01/02/17 23:10 01/02/17 23:12 01/02/17 23:42 01/03/17 00:20 White Blood Count 13.9x10^3/uL (4.0-11.0) Red Blood Count 4.66x10^6/uL (4.30-5.70) Hemoglobin 13.6g/dL (13.0-17.5) Hematocrit 41.8% (39.0-53.0) Mean Corpuscular Volume 90fL (79-100) Mean Corpuscular Hemoglobin 29pg (25-35) Mean Corpuscular Hemoglobin Concent 32g/dL (31-37) Red Cell Distribution Width 14.8% (11.5-14.5) Platelet Count 185x10^3/uL (140-400) Neutrophils (%) (Auto) 83% (31-73) Lymphocytes (%) (Auto) 5% (24-48) Monocytes (%) (Auto) 12% (0-9) Eosinophils (%) (Auto) 0% (0-3) Basophils (%) (Auto) 0% (0-3) Neutrophils # (Auto) 11.6x10^3uL (1.8-7.7) Lymphocytes # (Auto) 0.6x10^3/uL (1.0-4.8) Monocytes # (Auto) 1.7x10^3/uL (0.0-1.1) Eosinophils # (Auto) 0.0x10^3/uL (0.0-0.7) Basophils # (Auto) 0.0x10^3/uL (0.0-0.2) Prothrombin Time 14.8SEC (11.7-14.0) Prothromb Time International Ratio 1.2 (0.8-1.1) Activated Partial Thromboplast Time 37SEC (24-38) Sodium Level 138mmol/L (136-145) Potassium Level 5.2mmol/L (3.5-5.1) Chloride Level 97mmol/L (98-107) Carbon Dioxide Level 39mmol/L (21-32) Anion Gap 2 (6-14) Blood Urea Nitrogen 35mg/dL (8-26) Creatinine 0.9mg/dL (0.7-1.3) Estimated GFR (Cockcroft-Gault) 83.7 BUN/Creatinine Ratio 39 (6-20) Glucose Level 210mg/dL (70-99) Lactic Acid Level 4.1mmol/L (0.4-2.0) 0.9mmol/L (0.4-2.0) Calcium Level 9.4mg/dL (8.5-10.1) Total Bilirubin 0.7mg/dL (0.2-1.0) Aspartate Amino Transf (AST/SGOT) 18U/L (15-37) Alanine Aminotransferase (ALT/SGPT) 32U/L (16-63) Alkaline Phosphatase 40U/L (46-116) Troponin I Quantitative 0.644ng/mL (0.000-0.055) HJ-Fjk-B-Type Natriuretic Peptide 74999tp/mL (0-124) Total Protein 7.1g/dL (6.4-8.2) Albumin 3.9g/dL (3.4-5.0) Albumin/Globulin Ratio 1.2 (1.0-1.7) Influenza Type A Antigen Negative (NEGATIVE) Influenza Type B Antigen Negative (NEGATIVE) Urine Collection Type U cath Urine Color Yellow Urine Clarity Clear Urine pH 6.0 Urine Specific [place] 1.020 Urine Protein 100mg/dL (NEG-TRACE) Urine Glucose (UA) 500mg/dL (NEG) Urine Ketones (Stick) Tracemg/dL (NEG) Urine Blood Small (NEG) Urine Nitrite Negative (NEG) Urine Bilirubin Negative (NEG) Urine Urobilinogen Dipstick 1.0mg/dL (0.2 mg/dL) Urine Leukocyte Esterase Negative (NEG) Urine RBC 1-2/HPF (0-2) Urine WBC 1-4/HPF (0-4) Urine Squamous Epithelial Cells Few/LPF Urine Amorphous Sediment Present/HPF Urine Bacteria 0/HPF (0-FEW) Urine Hyaline Casts Few/HPF Urine Mucus Slight/LPF Urine Opiates Screen Neg (NEG) Urine Methadone Screen Neg (NEG) Urine Barbiturates Neg (NEG) Urine Phencyclidine Screen Neg (NEG) Urine Amphetamine/Methamphetamine Neg (NEG) Urine Benzodiazepines Screen Neg (NEG) Urine Cocaine Screen Neg (NEG) Urine Cannabinoids Screen Neg (NEG) Urine Ethyl Alcohol Neg (NEG) O2 Saturation 96% (92-99) Arterial Blood pH 7.40 (7.35-7.45) Arterial Blood pCO2 at Patient Temp 54mmHg (35-46) Arterial Blood pO2 at Patient Temp 80mmHg (65-108) Arterial Blood HCO3 32mmol/L (21-28) Arterial Blood Base Excess 6mmol/L (-3-3) FiO2 28 Test 01/03/17 06:35 01/03/17 08:26 01/03/17 08:41 01/03/17 09:30 Sodium Level 137mmol/L (136-145) Potassium Level 4.1mmol/L (3.5-5.1) Chloride Level 96mmol/L (98-107) Carbon Dioxide Level 36mmol/L (21-32) Anion Gap 5 (6-14) Blood Urea Nitrogen 32mg/dL (8-26) Creatinine 0.7mg/dL (0.7-1.3) Estimated GFR (Cockcroft-Gault) 111.8 Glucose Level 227mg/dL (70-99) Calcium Level 8.4mg/dL (8.5-10.1) Magnesium Level 2.0mg/dL (1.8-2.4) Troponin I Quantitative 0.417ng/mL (0.000-0.055) Triglycerides Level 49mg/dL (0-150) Cholesterol Level 133mg/dL (0-200) LDL Cholesterol, Calculated 68mg/dL (0-100) VLDL Cholesterol, Calculated 10mg/dL (0-40) HDL Cholesterol 55mg/dL (40-60) Cholesterol/HDL Ratio 2.4 O2 Saturation 94% (92-99) Arterial Blood pH 7.41 (7.35-7.45) Arterial Blood pH (Temp corrected) 7.39 Arterial Blood pCO2 at Patient Temp 56mmHg (35-46) Arterial Blood pCO2 (Temp correct) 59mmHg Arterial Blood pO2 at Patient Temp 68mmHg (65-108) Arterial Blood pO2 (Temp corrected) 74mmHg Arterial Blood HCO3 35mmol/L (21-28) Arterial Blood Base Excess 8mmol/L (-3-3) FiO2 32% Glucose (Fingerstick) 216mg/dL (70-99) White Blood Count 9.0x10^3/uL (4.0-11.0) Red Blood Count 4.08x10^6/uL (4.30-5.70) Hemoglobin 12.0g/dL (13.0-17.5) Hematocrit 35.6% (39.0-53.0) Mean Corpuscular Volume 87fL (79-100) Mean Corpuscular Hemoglobin 29pg (25-35) Mean Corpuscular Hemoglobin Concent 34g/dL (31-37) Red Cell Distribution Width 14.5% (11.5-14.5) Platelet Count 162x10^3/uL (140-400) Neutrophils (%) (Auto) 89% (31-73) Lymphocytes (%) (Auto) 4% (24-48) Monocytes (%) (Auto) 7% (0-9) Eosinophils (%) (Auto) 0% (0-3) Basophils (%) (Auto) 0% (0-3) Neutrophils # (Auto) 8.0x10^3uL (1.8-7.7) Lymphocytes # (Auto) 0.4x10^3/uL (1.0-4.8) Monocytes # (Auto) 0.6x10^3/uL (0.0-1.1) Eosinophils # (Auto) 0.0x10^3/uL (0.0-0.7) Basophils # (Auto) 0.0x10^3/uL (0.0-0.2) Segmented Neutrophils % 82% (35-66) Band Neutrophils % 7% (0-9) Lymphocytes % 5% (24-48) Monocytes % 6% (0-10) Platelet Estimate Adequate (ADEQUATE) Creatine Kinase 47U/L (39-308) Test 01/03/17 12:13 01/03/17 12:30 Glucose (Fingerstick) 222mg/dL (70-99) Troponin I Quantitative 0.365ng/mL (0.000-0.055) Thyroid Stimulating Hormone (TSH) 0.561uIU/mL (0.358-3.74) Laboratory Tests Test 01/02/17 23:10 01/02/17 23:12 01/02/17 23:42 01/03/17 00:20 White Blood Count 13.9x10^3/uL (4.0-11.0) Red Blood Count 4.66x10^6/uL (4.30-5.70) Hemoglobin 13.6g/dL (13.0-17.5) Hematocrit 41.8% (39.0-53.0) Mean Corpuscular Volume 90fL (79-100) Mean Corpuscular Hemoglobin 29pg (25-35) Mean Corpuscular Hemoglobin Concent 32g/dL (31-37) Red Cell Distribution Width 14.8% (11.5-14.5) Platelet Count 185x10^3/uL (140-400) Neutrophils (%) (Auto) 83% (31-73) Lymphocytes (%) (Auto) 5% (24-48) Monocytes (%) (Auto) 12% (0-9) Eosinophils (%) (Auto) 0% (0-3) Basophils (%) (Auto) 0% (0-3) Neutrophils # (Auto) 11.6x10^3uL (1.8-7.7) Lymphocytes # (Auto) 0.6x10^3/uL (1.0-4.8) Monocytes # (Auto) 1.7x10^3/uL (0.0-1.1) Eosinophils # (Auto) 0.0x10^3/uL (0.0-0.7) Basophils # (Auto) 0.0x10^3/uL (0.0-0.2) Prothrombin Time 14.8SEC (11.7-14.0) Prothromb Time International Ratio 1.2 (0.8-1.1) Activated Partial Thromboplast Time 37SEC (24-38) Sodium Level 138mmol/L (136-145) Potassium Level 5.2mmol/L (3.5-5.1) Chloride Level 97mmol/L (98-107) Carbon Dioxide Level 39mmol/L (21-32) Anion Gap 2 (6-14) Blood Urea Nitrogen 35mg/dL (8-26) Creatinine 0.9mg/dL (0.7-1.3) Estimated GFR (Cockcroft-Gault) 83.7 BUN/Creatinine Ratio 39 (6-20) Glucose Level 210mg/dL (70-99) Lactic Acid Level 4.1mmol/L (0.4-2.0) 0.9mmol/L (0.4-2.0) Calcium Level 9.4mg/dL (8.5-10.1) Total Bilirubin 0.7mg/dL (0.2-1.0) Aspartate Amino Transf (AST/SGOT) 18U/L (15-37) Alanine Aminotransferase (ALT/SGPT) 32U/L (16-63) Alkaline Phosphatase 40U/L (46-116) Troponin I Quantitative 0.644ng/mL (0.000-0.055) BS-Npb-F-Type Natriuretic Peptide 20017lw/mL (0-124) Total Protein 7.1g/dL (6.4-8.2) Albumin 3.9g/dL (3.4-5.0) Albumin/Globulin Ratio 1.2 (1.0-1.7) Influenza Type A Antigen Negative (NEGATIVE) Influenza Type B Antigen Negative (NEGATIVE) Urine Collection Type U cath Urine Color Yellow Urine Clarity Clear Urine pH 6.0 Urine Specific [place] 1.020 Urine Protein 100mg/dL (NEG-TRACE) Urine Glucose (UA) 500mg/dL (NEG) Urine Ketones (Stick) Tracemg/dL (NEG) Urine Blood Small (NEG) Urine Nitrite Negative (NEG) Urine Bilirubin Negative (NEG) Urine Urobilinogen Dipstick 1.0mg/dL (0.2 mg/dL) Urine Leukocyte Esterase Negative (NEG) Urine RBC 1-2/HPF (0-2) Urine WBC 1-4/HPF (0-4) Urine Squamous Epithelial Cells Few/LPF Urine Amorphous Sediment Present/HPF Urine Bacteria 0/HPF (0-FEW) Urine Hyaline Casts Few/HPF Urine Mucus Slight/LPF Urine Opiates Screen Neg (NEG) Urine Methadone Screen Neg (NEG) Urine Barbiturates Neg (NEG) Urine Phencyclidine Screen Neg (NEG) Urine Amphetamine/Methamphetamine Neg (NEG) Urine Benzodiazepines Screen Neg (NEG) Urine Cocaine Screen Neg (NEG) Urine Cannabinoids Screen Neg (NEG) Urine Ethyl Alcohol Neg (NEG) O2 Saturation 96% (92-99) Arterial Blood pH 7.40 (7.35-7.45) Arterial Blood pCO2 at Patient Temp 54mmHg (35-46) Arterial Blood pO2 at Patient Temp 80mmHg (65-108) Arterial Blood HCO3 32mmol/L (21-28) Arterial Blood Base Excess 6mmol/L (-3-3) FiO2 28 Test 01/03/17 06:35 01/03/17 08:26 01/03/17 08:41 01/03/17 09:30 Sodium Level 137mmol/L (136-145) Potassium Level 4.1mmol/L (3.5-5.1) Chloride Level 96mmol/L (98-107) Carbon Dioxide Level 36mmol/L (21-32) Anion Gap 5 (6-14) Blood Urea Nitrogen 32mg/dL (8-26) Creatinine 0.7mg/dL (0.7-1.3) Estimated GFR (Cockcroft-Gault) 111.8 Glucose Level 227mg/dL (70-99) Calcium Level 8.4mg/dL (8.5-10.1) Magnesium Level 2.0mg/dL (1.8-2.4) Troponin I Quantitative 0.417ng/mL (0.000-0.055) Triglycerides Level 49mg/dL (0-150) Cholesterol Level 133mg/dL (0-200) LDL Cholesterol, Calculated 68mg/dL (0-100) VLDL Cholesterol, Calculated 10mg/dL (0-40) HDL Cholesterol 55mg/dL (40-60) Cholesterol/HDL Ratio 2.4 O2 Saturation 94% (92-99) Arterial Blood pH 7.41 (7.35-7.45) Arterial Blood pH (Temp corrected) 7.39 Arterial Blood pCO2 at Patient Temp 56mmHg (35-46) Arterial Blood pCO2 (Temp correct) 59mmHg Arterial Blood pO2 at Patient Temp 68mmHg (65-108) Arterial Blood pO2 (Temp corrected) 74mmHg Arterial Blood HCO3 35mmol/L (21-28) Arterial Blood Base Excess 8mmol/L (-3-3) FiO2 32% Glucose (Fingerstick) 216mg/dL (70-99) White Blood Count 9.0x10^3/uL (4.0-11.0) Red Blood Count 4.08x10^6/uL (4.30-5.70) Hemoglobin 12.0g/dL (13.0-17.5) Hematocrit 35.6% (39.0-53.0) Mean Corpuscular Volume 87fL (79-100) Mean Corpuscular Hemoglobin 29pg (25-35) Mean Corpuscular Hemoglobin Concent 34g/dL (31-37) Red Cell Distribution Width 14.5% (11.5-14.5) Platelet Count 162x10^3/uL (140-400) Neutrophils (%) (Auto) 89% (31-73) Lymphocytes (%) (Auto) 4% (24-48) Monocytes (%) (Auto) 7% (0-9) Eosinophils (%) (Auto) 0% (0-3) Basophils (%) (Auto) 0% (0-3) Neutrophils # (Auto) 8.0x10^3uL (1.8-7.7) Lymphocytes # (Auto) 0.4x10^3/uL (1.0-4.8) Monocytes # (Auto) 0.6x10^3/uL (0.0-1.1) Eosinophils # (Auto) 0.0x10^3/uL (0.0-0.7) Basophils # (Auto) 0.0x10^3/uL (0.0-0.2) Segmented Neutrophils % 82% (35-66) Band Neutrophils % 7% (0-9) Lymphocytes % 5% (24-48) Monocytes % 6% (0-10) Platelet Estimate Adequate (ADEQUATE) Creatine Kinase 47U/L (39-308) Test 01/03/17 12:13 01/03/17 12:30 Glucose (Fingerstick) 222mg/dL (70-99) Troponin I Quantitative 0.365ng/mL (0.000-0.055) Thyroid Stimulating Hormone (TSH) 0.561uIU/mL (0.358-3.74) INDIGO ROSALES MD Jan 03, 2017 16:15
--- NOTE | 2017-01-03 17:14 | PDOC2 ---
PALLIATIVE CARE Palliative Care Note Palliative Care Consult requested by Dr. Rutledge to address goals of care/ poor prognosis Diagnosis: Mental status changes -starting 6 days ago--patient refused to come to the hospital. Unresponsive post seizure Respiratory Distress Lactic Acidosis; COPD HTN HLD Met with Carlee, sons Evon and Dc Reviewed above medical condition and results of MRI, CT and review of labs. Patient had been telling his family he is tired. Poor quality of life. Patient had always enjoyed hunting, fishing, and being outside. 47 years. Family would like to continue current treatment plan until results of EEG back and if DrsNinfa believe there is nothing else that they can do. Would consider comfort care after family has had time to see him. Code Status: DNR/DNI Plan: Awaiting results of EEG Family considering comfort care/ DNR/DNI HARPER ETIENNE Jan 03, 2017 17:14
[2017-01-03] MEDS: ASPIRIN 300 MG SUPP.RECT PR SCH (18:05)
[2017-01-03] MEDS: ACETAMINOPHEN 650 MG SUPP.RECT. PR PRN (19:52)
[2017-01-03] MEDS: methylPREDNISolone SOD SUCC PF 125 MG/2 ML VIAL. IV SCH (19:53)
[2017-01-03] MEDS: METOPROLOL TARTRATE 5 MG/5 ML VIAL. IVP PRN (20:20)
[2017-01-04] VITALS (23 sets, daily range): BP systolic 113–193; BP diastolic 65–100
[2017-01-04] MEDS: VANCOMYCIN 1 GM in IV NORMAL SALINE 250ML 250 ML IV SCH (02:30)
[2017-01-04] MEDS: METOPROLOL TARTRATE 5 MG/5 ML VIAL. IVP PRN ×2 (05:02→14:25)
[2017-01-04] MEDS: PIPERACILLIN/TAZOBACTAM 4.5 GM in IV NORMAL SALINE 100ML 100 ML IV SCH ×4 (05:02→23:49)
[2017-01-04 05:53] LABS: BASO % 0 % (0-3); EOS % 0 % (0-3); HEMATOCRIT 40.2 % (39.0-53.0); HEMOGLOBIN 13.1 g/dL (13.0-17.5); LYMPH # 0.6 x10^3/uL (1.0-4.8); LYMPH % 4 % (24-48); MEAN CORPUSCULAR HEMOGLOBIN 29 pg (25-35); MEAN CORPUSCULAR HGB CONC 33 g/dL (31-37); MEAN CORPUSCULAR VOLUME 89 fL (79-100); MONO % 10 % (0-9); NEUT % 85 % (31-73); PLATELET COUNT 177 x10^3/uL (140-400); RED BLOOD COUNT 4.52 x10^6/uL (4.30-5.70); RED CELL DISTRIBUTION WIDTH 14.8 % (11.5-14.5); WHITE BLOOD COUNT 14.3 x10^3/uL (4.0-11.0)
[2017-01-04 06:06] LABS: CALCIUM 8.2 mg/dL (8.5-10.1); CREATININE 0.8 mg/dL (0.7-1.3); GFR 95.8; POTASSIUM 3.7 mmol/L (3.5-5.1)
[2017-01-04] MEDS ORDERED: GLIPIZIDE 5 MG TABLET PO SCH (07:30)
[2017-01-04] MEDS: INSULIN ASPART 300 UNITS/3 ML INSULN.PEN SQ SCH ×3 (08:00→17:00)
[2017-01-04] MEDS: VANCOMYCIN PER PHARMACY MC PRN (08:05)
[2017-01-04] MEDS: IPRATRPIUM/ALBUTEROL 0.5/2.5MG 3 ML NEBU. NEB SCH ×4 (08:10→20:28)
--- NOTE | 2017-01-04 08:56 | RAD ---
Exam performed: Carotid Doppler. Clinical indication: CVA Date of Service: 01/03/17. Comparison :None available. Technique: Real-time grayscale and Doppler evaluation of the carotid system was performed and images are obtained. Color flow and spectral analysis was observed. Findings: There is mild atheromatous plaquing within both carotid bulbs extending into the internal carotid artery bilaterally. Doppler interrogation reveals normal waveforms and velocities as follows . Peak systolic velocity within the right common carotid artery measures 51.0 cm/sec whereas on the left measures 73.0 cm/sec . The peak systolic velocity within the right ICA measures 95.0 cm/sec whereas on the left measures 103.0 cm/sec. The ICA to CCA ratio on the right measures 1.8 whereas on the left measures 1.4. There is antegrade flow in both vertebral arteries. Impression: 1.Mild scattered atheromatous plaquing involving both carotid bulbs and proximal internal carotid arteries without any flow-limiting stenosis. Note: Stenosis calculations for CT, MR and conventional angiography are based upon determination of the distal ICA diameter in accordance with the NASCET methodology. Stenosis calculations for doppler studies are derived from validated velocity criteria which are known to correlate with NASCET methodology of determining stenosis.
[2017-01-04] MEDS: FAMOTIDINE 20 MG TABLET. PO SCH ×2 (09:00→21:00)
[2017-01-04] MEDS: FLUTICASONE 50MCG/NASAL SPRAY 16GM BOTTLE. NS SCH ×2 (09:00→21:00)
[2017-01-04] MEDS ORDERED: ASPIRIN 300 MG SUPP.RECT PR SCH (09:00)
[2017-01-04 10:09] LABS: PLT ESTIMATE ADEQUATE (ADEQUATE)
[2017-01-04] MEDS: methylPREDNISolone SOD SUCC PF 125 MG/2 ML VIAL. IV SCH ×2 (10:14→21:07)
[2017-01-04] MEDS: ASPIRIN 300 MG SUPP.RECT PR SCH (10:15)
[2017-01-04] MEDS: ENOXAPARIN 40 MG/0.4 ML DISP.SYRIN. SQ SCH (10:15)
--- NOTE | 2017-01-04 11:44 | PDOC ---
PULMONARY PROGRESS NOTES Subjective remains sleepy RN reports periods of apnea at night Vitals Vital Signs Date Time Temp Pulse Resp B/P Pulse Ox O2 Delivery O2 Flow Rate FiO2 01/04/17 11:11 Nasal Cannula 2.0 01/04/17 09:00 110 40 171/73 91 01/04/17 04:00 100.0 100.0 Lungs: Other (decrease bs) Cardiovascular: S1, S2 Abdomen: Soft Extremities: No Edema Skin: Warm Labs Laboratory Tests Test 01/02/17 23:10 01/02/17 23:12 01/02/17 23:42 01/03/17 00:20 White Blood Count 13.9x10^3/uL (4.0-11.0) Red Blood Count 4.66x10^6/uL (4.30-5.70) Hemoglobin 13.6g/dL (13.0-17.5) Hematocrit 41.8% (39.0-53.0) Mean Corpuscular Volume 90fL (79-100) Mean Corpuscular Hemoglobin 29pg (25-35) Mean Corpuscular Hemoglobin Concent 32g/dL (31-37) Red Cell Distribution Width 14.8% (11.5-14.5) Platelet Count 185x10^3/uL (140-400) Neutrophils (%) (Auto) 83% (31-73) Lymphocytes (%) (Auto) 5% (24-48) Monocytes (%) (Auto) 12% (0-9) Eosinophils (%) (Auto) 0% (0-3) Basophils (%) (Auto) 0% (0-3) Neutrophils # (Auto) 11.6x10^3uL (1.8-7.7) Lymphocytes # (Auto) 0.6x10^3/uL (1.0-4.8) Monocytes # (Auto) 1.7x10^3/uL (0.0-1.1) Eosinophils # (Auto) 0.0x10^3/uL (0.0-0.7) Basophils # (Auto) 0.0x10^3/uL (0.0-0.2) Prothrombin Time 14.8SEC (11.7-14.0) Prothromb Time International Ratio 1.2 (0.8-1.1) Activated Partial Thromboplast Time 37SEC (24-38) Sodium Level 138mmol/L (136-145) Potassium Level 5.2mmol/L (3.5-5.1) Chloride Level 97mmol/L (98-107) Carbon Dioxide Level 39mmol/L (21-32) Anion Gap 2 (6-14) Blood Urea Nitrogen 35mg/dL (8-26) Creatinine 0.9mg/dL (0.7-1.3) Estimated GFR (Cockcroft-Gault) 83.7 BUN/Creatinine Ratio 39 (6-20) Glucose Level 210mg/dL (70-99) Lactic Acid Level 4.1mmol/L (0.4-2.0) 0.9mmol/L (0.4-2.0) Calcium Level 9.4mg/dL (8.5-10.1) Total Bilirubin 0.7mg/dL (0.2-1.0) Aspartate Amino Transf (AST/SGOT) 18U/L (15-37) Alanine Aminotransferase (ALT/SGPT) 32U/L (16-63) Alkaline Phosphatase 40U/L (46-116) Troponin I Quantitative 0.644ng/mL (0.000-0.055) SS-Hfh-P-Type Natriuretic Peptide 64468qg/mL (0-124) Total Protein 7.1g/dL (6.4-8.2) Albumin 3.9g/dL (3.4-5.0) Albumin/Globulin Ratio 1.2 (1.0-1.7) Influenza Type A Antigen Negative (NEGATIVE) Influenza Type B Antigen Negative (NEGATIVE) Urine Collection Type U cath Urine Color Yellow Urine Clarity Clear Urine pH 6.0 Urine Specific [place] 1.020 Urine Protein 100mg/dL (NEG-TRACE) Urine Glucose (UA) 500mg/dL (NEG) Urine Ketones (Stick) Tracemg/dL (NEG) Urine Blood Small (NEG) Urine Nitrite Negative (NEG) Urine Bilirubin Negative (NEG) Urine Urobilinogen Dipstick 1.0mg/dL (0.2 mg/dL) Urine Leukocyte Esterase Negative (NEG) Urine RBC 1-2/HPF (0-2) Urine WBC 1-4/HPF (0-4) Urine Squamous Epithelial Cells Few/LPF Urine Amorphous Sediment Present/HPF Urine Bacteria 0/HPF (0-FEW) Urine Hyaline Casts Few/HPF Urine Mucus Slight/LPF Urine Opiates Screen Neg (NEG) Urine Methadone Screen Neg (NEG) Urine Barbiturates Neg (NEG) Urine Phencyclidine Screen Neg (NEG) Urine Amphetamine/Methamphetamine Neg (NEG) Urine Benzodiazepines Screen Neg (NEG) Urine Cocaine Screen Neg (NEG) Urine Cannabinoids Screen Neg (NEG) Urine Ethyl Alcohol Neg (NEG) O2 Saturation 96% (92-99) Arterial Blood pH 7.40 (7.35-7.45) Arterial Blood pCO2 at Patient Temp 54mmHg (35-46) Arterial Blood pO2 at Patient Temp 80mmHg (65-108) Arterial Blood HCO3 32mmol/L (21-28) Arterial Blood Base Excess 6mmol/L (-3-3) FiO2 28 Test 01/03/17 05:00 01/03/17 06:35 01/03/17 08:26 01/03/17 08:41 Nasal Screen MRSA (PCR) Positive (Negative) Sodium Level 137mmol/L (136-145) Potassium Level 4.1mmol/L (3.5-5.1) Chloride Level 96mmol/L (98-107) Carbon Dioxide Level 36mmol/L (21-32) Anion Gap 5 (6-14) Blood Urea Nitrogen 32mg/dL (8-26) Creatinine 0.7mg/dL (0.7-1.3) Estimated GFR (Cockcroft-Gault) 111.8 Glucose Level 227mg/dL (70-99) Calcium Level 8.4mg/dL (8.5-10.1) Magnesium Level 2.0mg/dL (1.8-2.4) Troponin I Quantitative 0.417ng/mL (0.000-0.055) Triglycerides Level 49mg/dL (0-150) Cholesterol Level 133mg/dL (0-200) LDL Cholesterol, Calculated 68mg/dL (0-100) VLDL Cholesterol, Calculated 10mg/dL (0-40) HDL Cholesterol 55mg/dL (40-60) Cholesterol/HDL Ratio 2.4 O2 Saturation 94% (92-99) Arterial Blood pH 7.41 (7.35-7.45) Arterial Blood pH (Temp corrected) 7.39 Arterial Blood pCO2 at Patient Temp 56mmHg (35-46) Arterial Blood pCO2 (Temp correct) 59mmHg Arterial Blood pO2 at Patient Temp 68mmHg (65-108) Arterial Blood pO2 (Temp corrected) 74mmHg Arterial Blood HCO3 35mmol/L (21-28) Arterial Blood Base Excess 8mmol/L (-3-3) FiO2 32% Glucose (Fingerstick) 216mg/dL (70-99) Test 01/03/17 09:30 01/03/17 12:13 01/03/17 12:30 01/03/17 18:04 White Blood Count 9.0x10^3/uL (4.0-11.0) Red Blood Count 4.08x10^6/uL (4.30-5.70) Hemoglobin 12.0g/dL (13.0-17.5) Hematocrit 35.6% (39.0-53.0) Mean Corpuscular Volume 87fL (79-100) Mean Corpuscular Hemoglobin 29pg (25-35) Mean Corpuscular Hemoglobin Concent 34g/dL (31-37) Red Cell Distribution Width 14.5% (11.5-14.5) Platelet Count 162x10^3/uL (140-400) Neutrophils (%) (Auto) 89% (31-73) Lymphocytes (%) (Auto) 4% (24-48) Monocytes (%) (Auto) 7% (0-9) Eosinophils (%) (Auto) 0% (0-3) Basophils (%) (Auto) 0% (0-3) Neutrophils # (Auto) 8.0x10^3uL (1.8-7.7) Lymphocytes # (Auto) 0.4x10^3/uL (1.0-4.8) Monocytes # (Auto) 0.6x10^3/uL (0.0-1.1) Eosinophils # (Auto) 0.0x10^3/uL (0.0-0.7) Basophils # (Auto) 0.0x10^3/uL (0.0-0.2) Segmented Neutrophils % 82% (35-66) Band Neutrophils % 7% (0-9) Lymphocytes % 5% (24-48) Monocytes % 6% (0-10) Platelet Estimate Adequate (ADEQUATE) Creatine Kinase 47U/L (39-308) Glucose (Fingerstick) 222mg/dL (70-99) 163mg/dL (70-99) Troponin I Quantitative 0.365ng/mL (0.000-0.055) Vitamin B12 Level 667pg/mL (247-911) Thyroid Stimulating Hormone (TSH) 0.561uIU/mL (0.358-3.74) Test 01/04/17 05:00 White Blood Count 14.3x10^3/uL (4.0-11.0) Red Blood Count 4.52x10^6/uL (4.30-5.70) Hemoglobin 13.1g/dL (13.0-17.5) Hematocrit 40.2% (39.0-53.0) Mean Corpuscular Volume 89fL (79-100) Mean Corpuscular Hemoglobin 29pg (25-35) Mean Corpuscular Hemoglobin Concent 33g/dL (31-37) Red Cell Distribution Width 14.8% (11.5-14.5) Platelet Count 177x10^3/uL (140-400) Neutrophils (%) (Auto) 85% (31-73) Lymphocytes (%) (Auto) 4% (24-48) Monocytes (%) (Auto) 10% (0-9) Eosinophils (%) (Auto) 0% (0-3) Basophils (%) (Auto) 0% (0-3) Neutrophils # (Auto) 12.2x10^3uL (1.8-7.7) Lymphocytes # (Auto) 0.6x10^3/uL (1.0-4.8) Monocytes # (Auto) 1.4x10^3/uL (0.0-1.1) Eosinophils # (Auto) 0.0x10^3/uL (0.0-0.7) Basophils # (Auto) 0.0x10^3/uL (0.0-0.2) Segmented Neutrophils % 80% (35-66) Band Neutrophils % 2% (0-9) Lymphocytes % 7% (24-48) Atypical Lymphocytes % (Manual) 2% (0-0) Monocytes % 9% (0-10) Platelet Estimate Adequate (ADEQUATE) Sodium Level 143mmol/L (136-145) Potassium Level 3.7mmol/L (3.5-5.1) Chloride Level 101mmol/L (98-107) Carbon Dioxide Level 40mmol/L (21-32) Anion Gap 2 (6-14) Blood Urea Nitrogen 38mg/dL (8-26) Creatinine 0.8mg/dL (0.7-1.3) Estimated GFR (Cockcroft-Gault) 95.8 Glucose Level 152mg/dL (70-99) Calcium Level 8.2mg/dL (8.5-10.1) Laboratory Tests Test 01/03/17 12:13 01/03/17 12:30 01/03/17 18:04 01/04/17 05:00 Glucose (Fingerstick) 222mg/dL (70-99) 163mg/dL (70-99) Troponin I Quantitative 0.365ng/mL (0.000-0.055) Vitamin B12 Level 667pg/mL (247-911) Thyroid Stimulating Hormone (TSH) 0.561uIU/mL (0.358-3.74) White Blood Count 14.3x10^3/uL (4.0-11.0) Red Blood Count 4.52x10^6/uL (4.30-5.70) Hemoglobin 13.1g/dL (13.0-17.5) Hematocrit 40.2% (39.0-53.0) Mean Corpuscular Volume 89fL (79-100) Mean Corpuscular Hemoglobin 29pg (25-35) Mean Corpuscular Hemoglobin Concent 33g/dL (31-37) Red Cell Distribution Width 14.8% (11.5-14.5) Platelet Count 177x10^3/uL (140-400) Neutrophils (%) (Auto) 85% (31-73) Lymphocytes (%) (Auto) 4% (24-48) Monocytes (%) (Auto) 10% (0-9) Eosinophils (%) (Auto) 0% (0-3) Basophils (%) (Auto) 0% (0-3) Neutrophils # (Auto) 12.2x10^3uL (1.8-7.7) Lymphocytes # (Auto) 0.6x10^3/uL (1.0-4.8) Monocytes # (Auto) 1.4x10^3/uL (0.0-1.1) Eosinophils # (Auto) 0.0x10^3/uL (0.0-0.7) Basophils # (Auto) 0.0x10^3/uL (0.0-0.2) Segmented Neutrophils % 80% (35-66) Band Neutrophils % 2% (0-9) Lymphocytes % 7% (24-48) Atypical Lymphocytes % (Manual) 2% (0-0) Monocytes % 9% (0-10) Platelet Estimate Adequate (ADEQUATE) Sodium Level 143mmol/L (136-145) Potassium Level 3.7mmol/L (3.5-5.1) Chloride Level 101mmol/L (98-107) Carbon Dioxide Level 40mmol/L (21-32) Anion Gap 2 (6-14) Blood Urea Nitrogen 38mg/dL (8-26) Creatinine 0.8mg/dL (0.7-1.3) Estimated GFR (Cockcroft-Gault) 95.8 Glucose Level 152mg/dL (70-99) Calcium Level 8.2mg/dL (8.5-10.1) Medications Active Scripts Medications Dose Route/Sig Days Date Category Ipratropium [place] 0.2 Mg/1 Ml Solution 1 Vial NEB QID 01/03/17 Reported Ativan (Lorazepam) 0.5 Mg Tablet 0.125 Mg PO TID PRN 01/03/17 Reported Montelukast Sodium Tablet (Montelukast Sodium) 10 Mg Tablet 10 Mg PO HS 01/03/17 Reported Glipizide 5 Mg Tablet 5 Mg PO DAILYAC 01/03/17 Reported Mobic (Meloxicam) 7.5 Mg Tablet 7.5 Mg PO DAILY 01/03/17 Reported Zantac (Ranitidine Hcl) 150 Mg Tablet 150 Mg PO BID 01/03/17 Reported Cipro (Ciprofloxacin Hcl) 500 Mg Tablet 1 Tab PO BID PRN 05/14/16 Rx Lisinopril 20 Mg Tablet 20 Mg PO DAILY 02/06/15 Reported Glipizide 5 Mg Tablet 2.5 Mg PO AFTRNOON 02/06/15 Reported Tudorza Pressair (Aclidinium [place]) 400 Mcg Aer.pow.ba 400 Mcg IH 02/06/15 Reported Metformin Hcl 500 Mg Tablet 500 Mg PO BIDWMEALS 02/06/15 Reported Fluticasone Propionate Nasal Mclean (Fluticasone Propionate) 16 Gm Mclean.susp 1 Mclean NS BID 02/06/15 Reported Aspir 81 (Aspirin) 81 Mg Tablet.dr 81 Mg PO 02/06/15 Reported [megared] 02/06/15 Reported Impression . 1. Suspected severe chronic obstructive pulmonary disease with chronic hypoxia and chronic hypercapnia clinically compensated. 2. Acute encephalopathy, now in a postictal state. He had witnessed seizures x2 while in the ICU and probably had a seizure at home as well causing slurring of speech. Neurology following 3. Fever, no source of infection in the lungs. We will follow ID recommendation. We will leave up to them regarding the need for any lumbar puncture. 4. Clear chest x-ray. 5. Mildly increased troponin level. 6. Possible central apneas 7. Encephalitis on MRI Plan . 1. Continue with present oxygen. 2. Watch for his respiratory status at this point, he is spontaneously breathing, CPAP qhs 3. Follow Neurology recommendations. 4. Broad spectrum antibiotics per Infectious Disease. 5. Continue bronchodilators. 6. Deep venous thrombosis prophylaxis. 7. Taper steroids. 8. Monitor blood pressure closely. 9. Discussed with RN and pts cct 25 min DARLINE CONNORS MD Jan 04, 2017 11:44
--- NOTE | 2017-01-04 11:59 | EEG ---
DATE OF SERVICE: 01/03/2017 ATTENDING PHYSICIAN: Dr. Medellin. This EEG number [id number] performed on 01/03/2017. OBJECTIVE: The patient is a 71-year-old male with new seizure. DESCRIPTION: This is a digital study. Electrodes are placed according to the international 10-20 system. Bipolar and referential montages are available. INTERPRETATION: The waking background consists of 2-4 Hz, 10-20 microvolt activity. Sleep is not achieved. Hyperventilation is not performed. Intermittent photic stimulation is noncontributory. IMPRESSION: This electroencephalogram with the patient in an obtunded state is abnormal. There is a severe, diffuse disturbance of cerebral activity consistent with any of a variety of toxic and metabolic encephalopathies. Thank you for letting us help with the patient's care. ALFRED BANGURA MD DR: MERRILL/evgeny JOB#: [id number] / [id number]
[2017-01-04] MEDS: GLIPIZIDE 5 MG TABLET PO SCH (12:06)
[2017-01-04] MEDS: IV NORMAL SALINE 1000ML BAG 1,000 ML IV SCH (12:06)
--- NOTE | 2017-01-04 12:44 | PDOC ---
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 Electroencephalogram is negative for epileptic activity. Metabolic encephalopathy Seizure activity Plan I discussed with the patient's . Patient has repeatedly stated that he does not want any life-saving measures or aggressive medical therapy because of his long-standing COPD. I discussed the possibility of a lumbar puncture, but the does not want to do that in the spirit of her 's wishes. Therefore, no additional workup is needed Aim for more of a palliative care approach. Continue antibiotics for now. Hold on starting anticonvulsants Subjective None Objective Vital Signs Date Time Temp Pulse Resp B/P Pulse Ox O2 Delivery O2 Flow Rate FiO2 01/04/17 11:11 Nasal Cannula 2.0 01/04/17 11:00 102.3 119 40 175/97 91 102.3 Intake and Output 01/04/17 07:00 Intake Total 1625 ml Output Total 2335 ml Balance -710 ml Intake Oral 0 ml Blood Product IV Normal Saline Flush 1625 ml Output Urine Total 2335 ml PHYSICAL EXAM Eyes closed, no response to voice PERRL. no spontaneous extraocular movements. CN: no focal findings. Muscle tone: normal. Muscle strength: does not move to voice or pain DTR: 0-1+ Plantar reflex: silent Gait: not examined in bed. Sensory exam: not cooperative. Cerebellar: not cooperative. NEUROLOGICAL EXAMINATION: Mental Status Examination: Alert. Oriented to time, place, and person. [ ] answers questions and follows commends. Pupils are equal round and reactive to light and accommodation. Funduscopic exam: No papilledema. Extraocular movements are intact. Visual field exam shows no defect on the direct confrontation. No motor or sensory deficits on the facial exam. Uvula in the midline and the soft palate elevated symmetrically. No deviation of the tongue to any direction. Gross hearing is normal. Shoulder shrug normal. Muscle tone is normal. Muscle strength is 5. Deep tendon reflexes are 2+ all around. Plantar reflex is with flexion response bilaterally. [id number] test performance is accurate. Tandem walk test is accurate. Alternative movements are accurate. Romberg test is negative. Gait is normal. Sensory exam shows no deficits. No cerebellar signs are elicited. Review of Relevant I have reviewed the following items arlen (where applicable) has been applied. Labs Laboratory Tests Test 01/02/17 23:10 01/02/17 23:12 01/02/17 23:42 01/03/17 00:20 White Blood Count 13.9x10^3/uL (4.0-11.0) Red Blood Count 4.66x10^6/uL (4.30-5.70) Hemoglobin 13.6g/dL (13.0-17.5) Hematocrit 41.8% (39.0-53.0) Mean Corpuscular Volume 90fL (79-100) Mean Corpuscular Hemoglobin 29pg (25-35) Mean Corpuscular Hemoglobin Concent 32g/dL (31-37) Red Cell Distribution Width 14.8% (11.5-14.5) Platelet Count 185x10^3/uL (140-400) Neutrophils (%) (Auto) 83% (31-73) Lymphocytes (%) (Auto) 5% (24-48) Monocytes (%) (Auto) 12% (0-9) Eosinophils (%) (Auto) 0% (0-3) Basophils (%) (Auto) 0% (0-3) Neutrophils # (Auto) 11.6x10^3uL (1.8-7.7) Lymphocytes # (Auto) 0.6x10^3/uL (1.0-4.8) Monocytes # (Auto) 1.7x10^3/uL (0.0-1.1) Eosinophils # (Auto) 0.0x10^3/uL (0.0-0.7) Basophils # (Auto) 0.0x10^3/uL (0.0-0.2) Prothrombin Time 14.8SEC (11.7-14.0) Prothromb Time International Ratio 1.2 (0.8-1.1) Activated Partial Thromboplast Time 37SEC (24-38) Sodium Level 138mmol/L (136-145) Potassium Level 5.2mmol/L (3.5-5.1) Chloride Level 97mmol/L (98-107) Carbon Dioxide Level 39mmol/L (21-32) Anion Gap 2 (6-14) Blood Urea Nitrogen 35mg/dL (8-26) Creatinine 0.9mg/dL (0.7-1.3) Estimated GFR (Cockcroft-Gault) 83.7 BUN/Creatinine Ratio 39 (6-20) Glucose Level 210mg/dL (70-99) Lactic Acid Level 4.1mmol/L (0.4-2.0) 0.9mmol/L (0.4-2.0) Calcium Level 9.4mg/dL (8.5-10.1) Total Bilirubin 0.7mg/dL (0.2-1.0) Aspartate Amino Transf (AST/SGOT) 18U/L (15-37) Alanine Aminotransferase (ALT/SGPT) 32U/L (16-63) Alkaline Phosphatase 40U/L (46-116) Troponin I Quantitative 0.644ng/mL (0.000-0.055) LL-Yru-S-Type Natriuretic Peptide 87559zq/mL (0-124) Total Protein 7.1g/dL (6.4-8.2) Albumin 3.9g/dL (3.4-5.0) Albumin/Globulin Ratio 1.2 (1.0-1.7) Influenza Type A Antigen Negative (NEGATIVE) Influenza Type B Antigen Negative (NEGATIVE) Urine Collection Type U cath Urine Color Yellow Urine Clarity Clear Urine pH 6.0 Urine Specific [place] 1.020 Urine Protein 100mg/dL (NEG-TRACE) Urine Glucose (UA) 500mg/dL (NEG) Urine Ketones (Stick) Tracemg/dL (NEG) Urine Blood Small (NEG) Urine Nitrite Negative (NEG) Urine Bilirubin Negative (NEG) Urine Urobilinogen Dipstick 1.0mg/dL (0.2 mg/dL) Urine Leukocyte Esterase Negative (NEG) Urine RBC 1-2/HPF (0-2) Urine WBC 1-4/HPF (0-4) Urine Squamous Epithelial Cells Few/LPF Urine Amorphous Sediment Present/HPF Urine Bacteria 0/HPF (0-FEW) Urine Hyaline Casts Few/HPF Urine Mucus Slight/LPF Urine Opiates Screen Neg (NEG) Urine Methadone Screen Neg (NEG) Urine Barbiturates Neg (NEG) Urine Phencyclidine Screen Neg (NEG) Urine Amphetamine/Methamphetamine Neg (NEG) Urine Benzodiazepines Screen Neg (NEG) Urine Cocaine Screen Neg (NEG) Urine Cannabinoids Screen Neg (NEG) Urine Ethyl Alcohol Neg (NEG) O2 Saturation 96% (92-99) Arterial Blood pH 7.40 (7.35-7.45) Arterial Blood pCO2 at Patient Temp 54mmHg (35-46) Arterial Blood pO2 at Patient Temp 80mmHg (65-108) Arterial Blood HCO3 32mmol/L (21-28) Arterial Blood Base Excess 6mmol/L (-3-3) FiO2 28 Test 01/03/17 05:00 01/03/17 06:35 01/03/17 08:26 01/03/17 08:41 Nasal Screen MRSA (PCR) Positive (Negative) Sodium Level 137mmol/L (136-145) Potassium Level 4.1mmol/L (3.5-5.1) Chloride Level 96mmol/L (98-107) Carbon Dioxide Level 36mmol/L (21-32) Anion Gap 5 (6-14) Blood Urea Nitrogen 32mg/dL (8-26) Creatinine 0.7mg/dL (0.7-1.3) Estimated GFR (Cockcroft-Gault) 111.8 Glucose Level 227mg/dL (70-99) Calcium Level 8.4mg/dL (8.5-10.1) Magnesium Level 2.0mg/dL (1.8-2.4) Troponin I Quantitative 0.417ng/mL (0.000-0.055) Triglycerides Level 49mg/dL (0-150) Cholesterol Level 133mg/dL (0-200) LDL Cholesterol, Calculated 68mg/dL (0-100) VLDL Cholesterol, Calculated 10mg/dL (0-40) HDL Cholesterol 55mg/dL (40-60) Cholesterol/HDL Ratio 2.4 O2 Saturation 94% (92-99) Arterial Blood pH 7.41 (7.35-7.45) Arterial Blood pH (Temp corrected) 7.39 Arterial Blood pCO2 at Patient Temp 56mmHg (35-46) Arterial Blood pCO2 (Temp correct) 59mmHg Arterial Blood pO2 at Patient Temp 68mmHg (65-108) Arterial Blood pO2 (Temp corrected) 74mmHg Arterial Blood HCO3 35mmol/L (21-28) Arterial Blood Base Excess 8mmol/L (-3-3) FiO2 32% Glucose (Fingerstick) 216mg/dL (70-99) Test 01/03/17 09:30 01/03/17 12:13 01/03/17 12:30 01/03/17 18:04 White Blood Count 9.0x10^3/uL (4.0-11.0) Red Blood Count 4.08x10^6/uL (4.30-5.70) Hemoglobin 12.0g/dL (13.0-17.5) Hematocrit 35.6% (39.0-53.0) Mean Corpuscular Volume 87fL (79-100) Mean Corpuscular Hemoglobin 29pg (25-35) Mean Corpuscular Hemoglobin Concent 34g/dL (31-37) Red Cell Distribution Width 14.5% (11.5-14.5) Platelet Count 162x10^3/uL (140-400) Neutrophils (%) (Auto) 89% (31-73) Lymphocytes (%) (Auto) 4% (24-48) Monocytes (%) (Auto) 7% (0-9) Eosinophils (%) (Auto) 0% (0-3) Basophils (%) (Auto) 0% (0-3) Neutrophils # (Auto) 8.0x10^3uL (1.8-7.7) Lymphocytes # (Auto) 0.4x10^3/uL (1.0-4.8) Monocytes # (Auto) 0.6x10^3/uL (0.0-1.1) Eosinophils # (Auto) 0.0x10^3/uL (0.0-0.7) Basophils # (Auto) 0.0x10^3/uL (0.0-0.2) Segmented Neutrophils % 82% (35-66) Band Neutrophils % 7% (0-9) Lymphocytes % 5% (24-48) Monocytes % 6% (0-10) Platelet Estimate Adequate (ADEQUATE) Creatine Kinase 47U/L (39-308) Glucose (Fingerstick) 222mg/dL (70-99) 163mg/dL (70-99) Troponin I Quantitative 0.365ng/mL (0.000-0.055) Vitamin B12 Level 667pg/mL (247-911) Thyroid Stimulating Hormone (TSH) 0.561uIU/mL (0.358-3.74) Test 01/04/17 05:00 01/04/17 12:04 White Blood Count 14.3x10^3/uL (4.0-11.0) Red Blood Count 4.52x10^6/uL (4.30-5.70) Hemoglobin 13.1g/dL (13.0-17.5) Hematocrit 40.2% (39.0-53.0) Mean Corpuscular Volume 89fL (79-100) Mean Corpuscular Hemoglobin 29pg (25-35) Mean Corpuscular Hemoglobin Concent 33g/dL (31-37) Red Cell Distribution Width 14.8% (11.5-14.5) Platelet Count 177x10^3/uL (140-400) Neutrophils (%) (Auto) 85% (31-73) Lymphocytes (%) (Auto) 4% (24-48) Monocytes (%) (Auto) 10% (0-9) Eosinophils (%) (Auto) 0% (0-3) Basophils (%) (Auto) 0% (0-3) Neutrophils # (Auto) 12.2x10^3uL (1.8-7.7) Lymphocytes # (Auto) 0.6x10^3/uL (1.0-4.8) Monocytes # (Auto) 1.4x10^3/uL (0.0-1.1) Eosinophils # (Auto) 0.0x10^3/uL (0.0-0.7) Basophils # (Auto) 0.0x10^3/uL (0.0-0.2) Segmented Neutrophils % 80% (35-66) Band Neutrophils % 2% (0-9) Lymphocytes % 7% (24-48) Atypical Lymphocytes % (Manual) 2% (0-0) Monocytes % 9% (0-10) Platelet Estimate Adequate (ADEQUATE) Sodium Level 143mmol/L (136-145) Potassium Level 3.7mmol/L (3.5-5.1) Chloride Level 101mmol/L (98-107) Carbon Dioxide Level 40mmol/L (21-32) Anion Gap 2 (6-14) Blood Urea Nitrogen 38mg/dL (8-26) Creatinine 0.8mg/dL (0.7-1.3) Estimated GFR (Cockcroft-Gault) 95.8 Glucose Level 152mg/dL (70-99) Calcium Level 8.2mg/dL (8.5-10.1) Glucose (Fingerstick) 145mg/dL (70-99) Laboratory Tests Test 01/03/17 18:04 01/04/17 05:00 01/04/17 12:04 Glucose (Fingerstick) 163mg/dL (70-99) 145mg/dL (70-99) White Blood Count 14.3x10^3/uL (4.0-11.0) Red Blood Count 4.52x10^6/uL (4.30-5.70) Hemoglobin 13.1g/dL (13.0-17.5) Hematocrit 40.2% (39.0-53.0) Mean Corpuscular Volume 89fL (79-100) Mean Corpuscular Hemoglobin 29pg (25-35) Mean Corpuscular Hemoglobin Concent 33g/dL (31-37) Red Cell Distribution Width 14.8% (11.5-14.5) Platelet Count 177x10^3/uL (140-400) Neutrophils (%) (Auto) 85% (31-73) Lymphocytes (%) (Auto) 4% (24-48) Monocytes (%) (Auto) 10% (0-9) Eosinophils (%) (Auto) 0% (0-3) Basophils (%) (Auto) 0% (0-3) Neutrophils # (Auto) 12.2x10^3uL (1.8-7.7) Lymphocytes # (Auto) 0.6x10^3/uL (1.0-4.8) Monocytes # (Auto) 1.4x10^3/uL (0.0-1.1) Eosinophils # (Auto) 0.0x10^3/uL (0.0-0.7) Basophils # (Auto) 0.0x10^3/uL (0.0-0.2) Segmented Neutrophils % 80% (35-66) Band Neutrophils % 2% (0-9) Lymphocytes % 7% (24-48) Atypical Lymphocytes % (Manual) 2% (0-0) Monocytes % 9% (0-10) Platelet Estimate Adequate (ADEQUATE) Sodium Level 143mmol/L (136-145) Potassium Level 3.7mmol/L (3.5-5.1) Chloride Level 101mmol/L (98-107) Carbon Dioxide Level 40mmol/L (21-32) Anion Gap 2 (6-14) Blood Urea Nitrogen 38mg/dL (8-26) Creatinine 0.8mg/dL (0.7-1.3) Estimated GFR (Cockcroft-Gault) 95.8 Glucose Level 152mg/dL (70-99) Calcium Level 8.2mg/dL (8.5-10.1) Microbiology 01/03/17 Blood Culture - Preliminary, Resulted NO GROWTH AFTER 1 DAY Medications Current Medications Sodium Chloride (Iv Sodium Chloride 0.9% 1000ml Bag) 1,770 ml @ 1,770 mls/hr Q1H IV Last administered on 01/02/17 23:20; Start 01/02/17 at 23:45; Stop at 09:06; Status DC Acetaminophen 650 mg 650 mg 1X ONCE KS Last administered on 01/03/17 00:08; Start 01/02/17 at 23:45; Stop 01/02/17 at 23:46; Status DC Levofloxacin/ Dextrose (LEVAQUIN 750mg PREMIX) 150 ml @ 100 mls/hr 1X ONCE IV Last administered on 01/03/17 00:47; Start 01/03/17 at 00:30; Stop 01/03/17 at 01:59; Status DC Methylprednisolone Sodium Succinate 125 mg 125 mg 1X ONCE IV Last administered on 01/03/17 00:45; Start 01/03/17 at 00:30; Stop 01/03/17 at 00:31 ; Status DC Nitroglycerin/ Dextrose 250 ml @ 0 mls/hr 1X ONCE IV Last administered on 01/03 00:45; Start 01/03/17 at 00:30; Stop 01/03/17 at 00:31; Status DC Sodium Chloride (Iv Sodium Chloride 0.9% 1000ml Bag) 1,000 ml @ 125 mls/hr 1X ONCE IV ; Start 01/03/17 at 00:30; Stop 01/03/17 at 08:29; Status Cancel Aspirin (Fabiola Aspirin) 325 mg 1X ONCE PO ; Start 01/03/17 at 00:30; Stop 01/03 at 00:31; Status DC Vancomycin HCl (Vanco Per Pharmacy) 1 each PRN DAILY PRN MC SEE COMMENTS Last administered on 01/04/17 08:05; Start 01/03/17 at 02:30 Ondansetron HCl 4 mg 4 mg PRN Q8HRS PRN IV NAUSEA/VOMITING; Start 01/03/17 at 00:45; Stop 01/04/17 at 00:44; Status DC Sodium Chloride (Iv Sodium Chloride 0.9% 1000ml Bag) 1,000 ml @ 100 mls/hr Q10H IV ; Start 01/03/17 at 01:00; Stop 01/03/17 at 02:56; Status DC Acetaminophen (Tylenol) 650 mg PRN Q4HRS PRN PO FEVER; Start 01/03/17 at 00:45 ; Stop 01/04/17 at 00:44; Status DC Albuterol/ Ipratropium (Duoneb) 3 ml RTQID NEB ; Start 01/03/17 at 08:00; Stop 01/03/17 at 08:05; Status DC Insulin Aspart (Novolog) 0-5 UNITS TIDWMEALS SQ ; Start 01/03/17 at 08:00 Dextrose 12.5 gm PRN Q15MIN PRN IV SEE COMMENTS; Start 01/03/17 at 00:45; Stop 01/03/17 at 10:13; Status DC Aspirin 300 mg 300 mg 1X ONCE [place] Last administered on 01/03/17 01:23; Start 01/03/17 at 01:15; Stop 01/03/17 at 01:16; Status DC Vancomycin HCl 1.5 gm/Sodium Chloride 500 ml @ 250 mls/hr 1X ONCE IV Last administered on 01/03/17 02:33; Start 01/03/17 at 02:30; Stop 01/03/17 at 04:29 ; Status DC Vancomycin HCl/ Sodium Chloride (Iv Sodium Chloride 0.9% 250ml) 250 ml @ 250 mls/hr Q24H IV Last administered on 01/04/17 02:30; Start 01/04/17 at 02:30 Vancomycin HCl 1 each 1X ONCE MC ; Start 01/05/17 at 02:00; Stop 01/05/17 at 02 :01 Pneumococcal Polyvalent Vaccine 1 each 1 each 1X ONCE MC ; Start 01/03/17 at 02 :45; Stop 01/03/17 at 02:46; Status UNV Nitroglycerin/ Dextrose 250 ml @ 0 mls/hr CONT PRN IV SEE I/O RECORD; Start 08/12 at 03:00 Sodium Chloride (Iv Sodium Chloride 0.9% 1000ml Bag) 1,000 ml @ 125 mls/hr Q8H IV Last administered on 01/03/17 03:00; Start 01/03/17 at 03:00; Stop at 06:22; Status DC Furosemide 40 mg 40 mg 1X ONCE IVP Last administered on 01/03/17 06:14; Start 01/03/17 at 06:15; Stop 01/03/17 at 06:16; Status DC Piperacillin Sod/ Tazobactam Sod/ Sodium Chloride (Zosyn/Iv Sodium Chloride 0.9 % 50ml) 50 ml @ 100 mls/hr Q6HRS IV ; Start 01/03/17 at 08:00; Stop 01/03/17 at 08:08; Status DC Albuterol/ Ipratropium (Duoneb) 3 ml Q4HRS W/A NEB Last administered on 11:00; Start 01/03/17 at 10:00; Stop 01/03/17 at 15:41; Status DC Prednisone (Prednisone) 60 mg DAILY PO ; Start 01/03/17 at 09:00; Stop 01/03/17 at 09:00; Status DC Methylprednisolone Sodium Succinate (Solu-Medrol 125mg Vial) 125 mg BID IV Last administered on 01/03/17 09:51; Start 01/03/17 at 09:00; Stop 01/03/17 at 11:44; Status DC Aspirin (Ecotrin) 81 mg DAILY PO ; Start 01/03/17 at 09:00; Stop 01/03/17 at 10: 16; Status DC Fluticasone Propionate (Flonase) 1 spray BID NS ; Start 01/03/17 at 09:00 Glipizide (Glucotrol) 2.5 mg AFTRNOON PO ; Start 01/03/17 at 13:00 Glipizide (Glucotrol) 5 mg DAILYAC PO ; Start 01/04/17 at 07:30 Lisinopril (Prinivil) 20 mg DAILY PO ; Start 01/03/17 at 09:00; Stop 01/03/17 at 10:10; Status DC Lorazepam (Ativan) 0.125 mg PRN TID PRN PO ANXIETY / AGITATION; Start 01/03/17 at 08:15 Famotidine 20 mg 20 mg BID PO ; Start 01/03/17 at 09:00 Piperacillin Sod/ Tazobactam Sod/ Sodium Chloride (Zosyn/Iv Sodium Chloride 0.9 % 100ml) 100 ml @ 200 mls/hr Q6HRS IV Last administered on 01/04/17 12:10; Start 01/03/17 at 12:00 Piperacillin Sod/ Tazobactam Sod (Zosyn Per Pharmacy) 1 each PRN DAILY PRN MC SEE COMMENTS; Start 01/03/17 at 08:15; Status UNV Insulin Aspart (Novolog) 0-7 UNITS TIDWMEALS SQ ; Start 01/03/17 at 12:00; Status UNV Dextrose 12.5 gm PRN Q15MIN PRN IV SEE COMMENTS; Start 01/03/17 at 08:15 Lorazepam (Ativan) 8 mg 1X STAT IV ; Start 01/03/17 at 08:26; Stop 01/03/17 at 08:29; Status DC Lorazepam (Ativan) 2 mg 1X ONCE IV Last administered on 01/03/17 08:39; Start 01/03/17 at 08:45; Stop 01/03/17 at 08:46; Status DC Lorazepam (Ativan) 2 mg PRN Q4HRS PRN IV ANXIETY / AGITATION; Start 01/03/17 at 08:45 Lorazepam (Ativan) 2 mg PRN Q1HR PRN IV ANXIETY / AGITATION; Start 01/03/17 at 08:45 Insulin Detemir (Levemir) 8 units 1X ONCE SQ Last administered on 01/03/17 09 :53; Start 01/03/17 at 09:15; Stop 01/03/17 at 09:17; Status DC Enoxaparin Sodium (Lovenox Per Pharmacy Prophylaxis Dosing) 1 each PRN DAILY PRN MC SEE COMMENTS; Start 01/03/17 at 09:15 Enoxaparin Sodium (Lovenox 40mg Syringe) 40 mg DAILY SQ Last administered on 10:15; Start 01/03/17 at 10:00 Metoprolol Tartrate (Lopressor) 5 mg Q6HRS IVP Last administered on 01/03/17 10:30; Start 01/03/17 at 11:00; Stop 01/03/17 at 18:21; Status DC Nitroglycerin (Nitro-Dur 0.4mg) 1 patch DAILY TD ; Start 01/03/17 at 11:00; Stop 01/03/17 at 11:56; Status DC Hydralazine HCl (Apresoline) 10 mg PRN Q4HRS PRN IVP ELEVATED BP, SEE COMMENTS ; Start 01/03/17 at 10:15 Aspirin 150 mg 150 mg DAILY KS ; Start 01/04/17 at 09:00; Stop 01/04/17 at 09:00 ; Status DC Sodium Chloride (Iv Sodium Chloride 0.9% 1000ml Bag) 1,000 ml @ 75 mls/hr [id number] IV Last administered on 01/04/17 12:06; Start 01/03/17 at 10:30 Methylprednisolone Sodium Succinate (Solu-Medrol 125mg Vial) 60 mg BID IV Last administered on 01/04/17 10:14; Start 01/03/17 at 21:00 Gadobutrol (Gadavist) 5 mmol 1X ONCE IV Last administered on 01/03/17 14:42; Start 01/03/17 at 14:15; Stop 01/03/17 at 14:25; Status DC Albuterol/ Ipratropium (Duoneb) 3 ml RTQID NEB Last administered on 01/04/17 11:11; Start 01/03/17 at 16:00 Aspirin (Aspirin) 300 mg DAILY KS Last administered on 01/04/17 10:15; Start 01/03/17 at 17:00 Metoprolol Tartrate (Lopressor) 5 mg PRN Q6HRS PRN IVP HYPERTENSION, SEE COMMENTS Last administered on 01/04/17 05:02; Start 01/03/17 at 18:00 Acetaminophen (Tylenol) 650 mg PRN Q6HRS PRN KS MILD PAIN / TEMP Last administered on 01/03/17 19:52; Start 01/03/17 at 19:45 Active Scripts Active Cipro (Ciprofloxacin Hcl) 500 Mg Tablet 1 Tab PO BID PRN Reported Ipratropium [place] 0.2 Mg/1 Ml Solution 1 Vial NEB QID Ativan (Lorazepam) 0.5 Mg Tablet 0.125 Mg PO TID PRN Montelukast Sodium Tablet (Montelukast Sodium) 10 Mg Tablet 10 Mg PO HS Glipizide 5 Mg Tablet 5 Mg PO DAILYAC Mobic (Meloxicam) 7.5 Mg Tablet 7.5 Mg PO DAILY Zantac (Ranitidine Hcl) 150 Mg Tablet 150 Mg PO BID Lisinopril 20 Mg Tablet 20 Mg PO DAILY Glipizide 5 Mg Tablet 2.5 Mg PO AFTRNOON Tudorza Pressair (Aclidinium [place]) 400 Mcg Aer.pow.ba 400 Mcg IH Metformin Hcl 500 Mg Tablet 500 Mg PO BIDWMEALS Fluticasone Propionate Nasal [place] (Fluticasone Propionate) 16 Gm [place].susp 1 [place] NS BID Aspir 81 (Aspirin) 81 Mg Tablet.dr 81 Mg PO [megared] Vitals/I & O Vital Sign - Last 24 Hours 01/03/17 01/03/17 01/03/17 01/03/17 13:00 14:00 15:00 15:44 Pulse 103 100 95 Resp 25 26 25 B/P 115/52 132/63 161/87 Pulse Ox 95 96 100 100 O2 Delivery Nasal Cannula Nasal Cannula Nasal Cannula Nasal Cannula O2 Flow Rate 3.0 3.0 3.0 2.0 01/03/17 01/03/17 01/03/17 01/03/17 16:00 16:00 17:00 18:00 Temp 100.8 100.8 Pulse 92 94 94 Resp 18 23 24 B/P 156/82 159/75 159/79 Pulse Ox 100 99 99 O2 Delivery Nasal Cannula Nasal Cannula Nasal Cannula Nasal Cannula O2 Flow Rate 3.0 3.0 3.0 3.0 01/03/17 01/03/17 01/03/17 01/03/17 19:00 19:21 20:00 20:00 Temp 102.0 102.0 Pulse 99 93 Resp 20 20 B/P 140/70 146/74 Pulse Ox 100 100 100 O2 Delivery Nasal Cannula Nasal Cannula Nasal Cannula Nasal Cannula O2 Flow Rate 2.0 2.0 3.0 2.0 01/03/17 01/03/17 01/03/17 01/03/17 20:20 21:00 21:36 23:00 Temp 101.0 101.0 Pulse 115 94 98 101 Resp 20 32 32 B/P 145/81 146/71 121/68 138/66 Pulse Ox 100 100 95 O2 Delivery Nasal Cannula Nasal Cannula Nasal Cannula O2 Flow Rate 2.0 2.0 2.0 01/03/17 01/03/17 01/04/17 01/04/17 23:55 23:59 01:00 02:00 Temp 100.6 100.6 Pulse 101 101 104 Resp 34 28 28 B/P 132/71 113/65 145/74 Pulse Ox 95 96 97 O2 Delivery Nasal Cannula Nasal Cannula Nasal Cannula Nasal Cannula O2 Flow Rate 2.0 2.0 2.0 2.0 01/04/17 01/04/17 01/04/17 01/04/17 03:00 04:00 04:00 05:00 Temp 100.0 100.0 Pulse 108 108 127 Resp 28 28 32 B/P 145/74 162/83 167/83 Pulse Ox 97 95 98 O2 Delivery Nasal Cannula Nasal Cannula Nasal Cannula Nasal Cannula O2 Flow Rate 2.0 2.0 2.0 2.0 01/04/17 01/04/17 01/04/17 01/04/17 05:02 06:00 07:00 07:53 Pulse 127 97 105 Resp 28 32 B/P 167/87 166/82 168/80 Pulse Ox 98 98 O2 Delivery Nasal Cannula Nasal Cannula Nasal Cannula O2 Flow Rate 2.0 2.0 3.0 01/04/17 01/04/17 01/04/17 01/04/17 08:00 08:10 09:00 10:00 Temp 100.9 100.9 Pulse 102 110 Resp 33 40 36 B/P 169/77 171/73 175/97 Pulse Ox 95 94 91 91 O2 Delivery Nasal Cannula Nasal Cannula Nasal Cannula Nasal Cannula O2 Flow Rate 2.0 2.0 2.0 2.0 01/04/17 01/04/17 11:00 11:11 Temp 102.3 102.3 Pulse 119 Resp 40 B/P 175/97 Pulse Ox 91 O2 Delivery Nasal Cannula Nasal Cannula O2 Flow Rate 2.0 2.0 Intake and Output 01/03/17 01/03/17 01/04/17 15:00 23:00 07:00 Intake Total 0 ml 1625 ml Output Total 1570 ml 265 ml 500 ml Balance -1570 ml -265 ml 1125 ml ALFRED BANGURA MD Jan 04, 2017 12:44
--- NOTE | 2017-01-04 13:57 | PDOC ---
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, Debility and weakness History of Present Illness History of Present Illness more calm today not verbal discussion with on direction, family seems in agreement to want limited interventinos, DNR, cont current Vitals Vitals Vital Signs Date Time Temp Pulse Resp B/P Pulse Ox O2 Delivery O2 Flow Rate FiO2 01/04/17 11:11 Nasal Cannula 2.0 01/04/17 11:00 102.3 119 40 175/97 91 102.3 Physical Exam General: moderate distress, Other (somnolent) Heart: Normal S1 Lungs: Clear, Other (decrease bs) Abdomen: Soft, Other (scaphoid abd) Extremities: No cyanosis, Other (2+ bilateral LE pitting leg edema) Skin: No breakdown, No significant lesion Labs LABS Laboratory Tests Test 01/03/17 18:04 01/04/17 05:00 01/04/17 12:04 Glucose (Fingerstick) 163mg/dL (70-99) 145mg/dL (70-99) White Blood Count 14.3x10^3/uL (4.0-11.0) Red Blood Count 4.52x10^6/uL (4.30-5.70) Hemoglobin 13.1g/dL (13.0-17.5) Hematocrit 40.2% (39.0-53.0) Mean Corpuscular Volume 89fL (79-100) Mean Corpuscular Hemoglobin 29pg (25-35) Mean Corpuscular Hemoglobin Concent 33g/dL (31-37) Red Cell Distribution Width 14.8% (11.5-14.5) Platelet Count 177x10^3/uL (140-400) Neutrophils (%) (Auto) 85% (31-73) Lymphocytes (%) (Auto) 4% (24-48) Monocytes (%) (Auto) 10% (0-9) Eosinophils (%) (Auto) 0% (0-3) Basophils (%) (Auto) 0% (0-3) Neutrophils # (Auto) 12.2x10^3uL (1.8-7.7) Lymphocytes # (Auto) 0.6x10^3/uL (1.0-4.8) Monocytes # (Auto) 1.4x10^3/uL (0.0-1.1) Eosinophils # (Auto) 0.0x10^3/uL (0.0-0.7) Basophils # (Auto) 0.0x10^3/uL (0.0-0.2) Segmented Neutrophils % 80% (35-66) Band Neutrophils % 2% (0-9) Lymphocytes % 7% (24-48) Atypical Lymphocytes % (Manual) 2% (0-0) Monocytes % 9% (0-10) Platelet Estimate Adequate (ADEQUATE) Sodium Level 143mmol/L (136-145) Potassium Level 3.7mmol/L (3.5-5.1) Chloride Level 101mmol/L (98-107) Carbon Dioxide Level 40mmol/L (21-32) Anion Gap 2 (6-14) Blood Urea Nitrogen 38mg/dL (8-26) Creatinine 0.8mg/dL (0.7-1.3) Estimated GFR (Cockcroft-Gault) 95.8 Glucose Level 152mg/dL (70-99) Calcium Level 8.2mg/dL (8.5-10.1) Assessment and Plan Assessmemt and Plan Problems Medical Problems: (1) Altered mental status Status: Acute (2) Community acquired pneumonia Status: Acute Problems: Comment Review of Relevant I have reviewed the following items arlen (where applicable) has been applied. Labs Laboratory Tests Test 01/02/17 23:10 01/02/17 23:12 01/02/17 23:42 01/03/17 00:20 White Blood Count 13.9x10^3/uL (4.0-11.0) Red Blood Count 4.66x10^6/uL (4.30-5.70) Hemoglobin 13.6g/dL (13.0-17.5) Hematocrit 41.8% (39.0-53.0) Mean Corpuscular Volume 90fL (79-100) Mean Corpuscular Hemoglobin 29pg (25-35) Mean Corpuscular Hemoglobin Concent 32g/dL (31-37) Red Cell Distribution Width 14.8% (11.5-14.5) Platelet Count 185x10^3/uL (140-400) Neutrophils (%) (Auto) 83% (31-73) Lymphocytes (%) (Auto) 5% (24-48) Monocytes (%) (Auto) 12% (0-9) Eosinophils (%) (Auto) 0% (0-3) Basophils (%) (Auto) 0% (0-3) Neutrophils # (Auto) 11.6x10^3uL (1.8-7.7) Lymphocytes # (Auto) 0.6x10^3/uL (1.0-4.8) Monocytes # (Auto) 1.7x10^3/uL (0.0-1.1) Eosinophils # (Auto) 0.0x10^3/uL (0.0-0.7) Basophils # (Auto) 0.0x10^3/uL (0.0-0.2) Prothrombin Time 14.8SEC (11.7-14.0) Prothromb Time International Ratio 1.2 (0.8-1.1) Activated Partial Thromboplast Time 37SEC (24-38) Sodium Level 138mmol/L (136-145) Potassium Level 5.2mmol/L (3.5-5.1) Chloride Level 97mmol/L (98-107) Carbon Dioxide Level 39mmol/L (21-32) Anion Gap 2 (6-14) Blood Urea Nitrogen 35mg/dL (8-26) Creatinine 0.9mg/dL (0.7-1.3) Estimated GFR (Cockcroft-Gault) 83.7 BUN/Creatinine Ratio 39 (6-20) Glucose Level 210mg/dL (70-99) Lactic Acid Level 4.1mmol/L (0.4-2.0) 0.9mmol/L (0.4-2.0) Calcium Level 9.4mg/dL (8.5-10.1) Total Bilirubin 0.7mg/dL (0.2-1.0) Aspartate Amino Transf (AST/SGOT) 18U/L (15-37) Alanine Aminotransferase (ALT/SGPT) 32U/L (16-63) Alkaline Phosphatase 40U/L (46-116) Troponin I Quantitative 0.644ng/mL (0.000-0.055) [id number]-M-Type Natriuretic Peptide 25185bm/mL (0-124) Total Protein 7.1g/dL (6.4-8.2) Albumin 3.9g/dL (3.4-5.0) Albumin/Globulin Ratio 1.2 (1.0-1.7) Influenza Type A Antigen Negative (NEGATIVE) Influenza Type B Antigen Negative (NEGATIVE) Urine Collection Type U cath Urine Color Yellow Urine Clarity Clear Urine pH 6.0 Urine Specific [place] 1.020 Urine Protein 100mg/dL (NEG-TRACE) Urine Glucose (UA) 500mg/dL (NEG) Urine Ketones (Stick) Tracemg/dL (NEG) Urine Blood Small (NEG) Urine Nitrite Negative (NEG) Urine Bilirubin Negative (NEG) Urine Urobilinogen Dipstick 1.0mg/dL (0.2 mg/dL) Urine Leukocyte Esterase Negative (NEG) Urine RBC 1-2/HPF (0-2) Urine WBC 1-4/HPF (0-4) Urine Squamous Epithelial Cells Few/LPF Urine Amorphous Sediment Present/HPF Urine Bacteria 0/HPF (0-FEW) Urine Hyaline Casts Few/HPF Urine Mucus Slight/LPF Urine Opiates Screen Neg (NEG) Urine Methadone Screen Neg (NEG) Urine Barbiturates Neg (NEG) Urine Phencyclidine Screen Neg (NEG) Urine Amphetamine/Methamphetamine Neg (NEG) Urine Benzodiazepines Screen Neg (NEG) Urine Cocaine Screen Neg (NEG) Urine Cannabinoids Screen Neg (NEG) Urine Ethyl Alcohol Neg (NEG) O2 Saturation 96% (92-99) Arterial Blood pH 7.40 (7.35-7.45) Arterial Blood pCO2 at Patient Temp 54mmHg (35-46) Arterial Blood pO2 at Patient Temp 80mmHg (65-108) Arterial Blood HCO3 32mmol/L (21-28) Arterial Blood Base Excess 6mmol/L (-3-3) FiO2 28 Test 01/03/17 05:00 01/03/17 06:35 01/03/17 08:26 01/03/17 08:41 Nasal Screen MRSA (PCR) Positive (Negative) Sodium Level 137mmol/L (136-145) Potassium Level 4.1mmol/L (3.5-5.1) Chloride Level 96mmol/L (98-107) Carbon Dioxide Level 36mmol/L (21-32) Anion Gap 5 (6-14) Blood Urea Nitrogen 32mg/dL (8-26) Creatinine 0.7mg/dL (0.7-1.3) Estimated GFR (Cockcroft-Gault) 111.8 Glucose Level 227mg/dL (70-99) Calcium Level 8.4mg/dL (8.5-10.1) Magnesium Level 2.0mg/dL (1.8-2.4) Troponin I Quantitative 0.417ng/mL (0.000-0.055) Triglycerides Level 49mg/dL (0-150) Cholesterol Level 133mg/dL (0-200) LDL Cholesterol, Calculated 68mg/dL (0-100) VLDL Cholesterol, Calculated 10mg/dL (0-40) HDL Cholesterol 55mg/dL (40-60) Cholesterol/HDL Ratio 2.4 O2 Saturation 94% (92-99) Arterial Blood pH 7.41 (7.35-7.45) Arterial Blood pH (Temp corrected) 7.39 Arterial Blood pCO2 at Patient Temp 56mmHg (35-46) Arterial Blood pCO2 (Temp correct) 59mmHg Arterial Blood pO2 at Patient Temp 68mmHg (65-108) Arterial Blood pO2 (Temp corrected) 74mmHg Arterial Blood HCO3 35mmol/L (21-28) Arterial Blood Base Excess 8mmol/L (-3-3) FiO2 32% Glucose (Fingerstick) 216mg/dL (70-99) Test 01/03/17 09:30 01/03/17 12:13 01/03/17 12:30 01/03/17 18:04 White Blood Count 9.0x10^3/uL (4.0-11.0) Red Blood Count 4.08x10^6/uL (4.30-5.70) Hemoglobin 12.0g/dL (13.0-17.5) Hematocrit 35.6% (39.0-53.0) Mean Corpuscular Volume 87fL (79-100) Mean Corpuscular Hemoglobin 29pg (25-35) Mean Corpuscular Hemoglobin Concent 34g/dL (31-37) Red Cell Distribution Width 14.5% (11.5-14.5) Platelet Count 162x10^3/uL (140-400) Neutrophils (%) (Auto) 89% (31-73) Lymphocytes (%) (Auto) 4% (24-48) Monocytes (%) (Auto) 7% (0-9) Eosinophils (%) (Auto) 0% (0-3) Basophils (%) (Auto) 0% (0-3) Neutrophils # (Auto) 8.0x10^3uL (1.8-7.7) Lymphocytes # (Auto) 0.4x10^3/uL (1.0-4.8) Monocytes # (Auto) 0.6x10^3/uL (0.0-1.1) Eosinophils # (Auto) 0.0x10^3/uL (0.0-0.7) Basophils # (Auto) 0.0x10^3/uL (0.0-0.2) Segmented Neutrophils % 82% (35-66) Band Neutrophils % 7% (0-9) Lymphocytes % 5% (24-48) Monocytes % 6% (0-10) Platelet Estimate Adequate (ADEQUATE) Creatine Kinase 47U/L (39-308) Glucose (Fingerstick) 222mg/dL (70-99) 163mg/dL (70-99) Troponin I Quantitative 0.365ng/mL (0.000-0.055) Vitamin B12 Level 667pg/mL (247-911) Thyroid Stimulating Hormone (TSH) 0.561uIU/mL (0.358-3.74) Test 01/04/17 05:00 01/04/17 12:04 White Blood Count 14.3x10^3/uL (4.0-11.0) Red Blood Count 4.52x10^6/uL (4.30-5.70) Hemoglobin 13.1g/dL (13.0-17.5) Hematocrit 40.2% (39.0-53.0) Mean Corpuscular Volume 89fL (79-100) Mean Corpuscular Hemoglobin 29pg (25-35) Mean Corpuscular Hemoglobin Concent 33g/dL (31-37) Red Cell Distribution Width 14.8% (11.5-14.5) Platelet Count 177x10^3/uL (140-400) Neutrophils (%) (Auto) 85% (31-73) Lymphocytes (%) (Auto) 4% (24-48) Monocytes (%) (Auto) 10% (0-9) Eosinophils (%) (Auto) 0% (0-3) Basophils (%) (Auto) 0% (0-3) Neutrophils # (Auto) 12.2x10^3uL (1.8-7.7) Lymphocytes # (Auto) 0.6x10^3/uL (1.0-4.8) Monocytes # (Auto) 1.4x10^3/uL (0.0-1.1) Eosinophils # (Auto) 0.0x10^3/uL (0.0-0.7) Basophils # (Auto) 0.0x10^3/uL (0.0-0.2) Segmented Neutrophils % 80% (35-66) Band Neutrophils % 2% (0-9) Lymphocytes % 7% (24-48) Atypical Lymphocytes % (Manual) 2% (0-0) Monocytes % 9% (0-10) Platelet Estimate Adequate (ADEQUATE) Sodium Level 143mmol/L (136-145) Potassium Level 3.7mmol/L (3.5-5.1) Chloride Level 101mmol/L (98-107) Carbon Dioxide Level 40mmol/L (21-32) Anion Gap 2 (6-14) Blood Urea Nitrogen 38mg/dL (8-26) Creatinine 0.8mg/dL (0.7-1.3) Estimated GFR (Cockcroft-Gault) 95.8 Glucose Level 152mg/dL (70-99) Calcium Level 8.2mg/dL (8.5-10.1) Glucose (Fingerstick) 145mg/dL (70-99) Laboratory Tests Test 01/03/17 18:04 01/04/17 05:00 01/04/17 12:04 Glucose (Fingerstick) 163mg/dL (70-99) 145mg/dL (70-99) White Blood Count 14.3x10^3/uL (4.0-11.0) Red Blood Count 4.52x10^6/uL (4.30-5.70) Hemoglobin 13.1g/dL (13.0-17.5) Hematocrit 40.2% (39.0-53.0) Mean Corpuscular Volume 89fL (79-100) Mean Corpuscular Hemoglobin 29pg (25-35) Mean Corpuscular Hemoglobin Concent 33g/dL (31-37) Red Cell Distribution Width 14.8% (11.5-14.5) Platelet Count 177x10^3/uL (140-400) Neutrophils (%) (Auto) 85% (31-73) Lymphocytes (%) (Auto) 4% (24-48) Monocytes (%) (Auto) 10% (0-9) Eosinophils (%) (Auto) 0% (0-3) Basophils (%) (Auto) 0% (0-3) Neutrophils # (Auto) 12.2x10^3uL (1.8-7.7) Lymphocytes # (Auto) 0.6x10^3/uL (1.0-4.8) Monocytes # (Auto) 1.4x10^3/uL (0.0-1.1) Eosinophils # (Auto) 0.0x10^3/uL (0.0-0.7) Basophils # (Auto) 0.0x10^3/uL (0.0-0.2) Segmented Neutrophils % 80% (35-66) Band Neutrophils % 2% (0-9) Lymphocytes % 7% (24-48) Atypical Lymphocytes % (Manual) 2% (0-0) Monocytes % 9% (0-10) Platelet Estimate Adequate (ADEQUATE) Sodium Level 143mmol/L (136-145) Potassium Level 3.7mmol/L (3.5-5.1) Chloride Level 101mmol/L (98-107) Carbon Dioxide Level 40mmol/L (21-32) Anion Gap 2 (6-14) Blood Urea Nitrogen 38mg/dL (8-26) Creatinine 0.8mg/dL (0.7-1.3) Estimated GFR (Cockcroft-Gault) 95.8 Glucose Level 152mg/dL (70-99) Calcium Level 8.2mg/dL (8.5-10.1) Microbiology 01/03/17 Blood Culture - Preliminary, Resulted NO GROWTH AFTER 1 DAY Medications Current Medications Sodium Chloride (Iv Sodium Chloride 0.9% 1000ml Bag) 1,770 ml @ 1,770 mls/hr Q1H IV Last administered on 01/02/17t 23:20; Start 01/02/17 at 23:45; Stop at 09:06; Status DC Acetaminophen 650 mg 650 mg 1X ONCE SC Last administered on 01/03/17 00:08; Start 01/02/17 at 23:45; Stop 01/02/17 at 23:46; Status DC Levofloxacin/ Dextrose (LEVAQUIN 750mg PREMIX) 150 ml @ 100 mls/hr 1X ONCE IV Last administered on 01/03/17 00:47; Start 01/03/17 at 00:30; Stop 01/03/17 at 01:59; Status DC Methylprednisolone Sodium Succinate 125 mg 125 mg 1X ONCE IV Last administered on 01/03/17 00:45; Start 01/03/17 at 00:30; Stop 01/03/17 at 00:31 ; Status DC Nitroglycerin/ Dextrose 250 ml @ 0 mls/hr 1X ONCE IV Last administered on 01/03 00:45; Start 01/03/17 at 00:30; Stop 01/03/17 at 00:31; Status DC Sodium Chloride (Iv Sodium Chloride 0.9% 1000ml Bag) 1,000 ml @ 125 mls/hr 1X ONCE IV ; Start 01/03/17 at 00:30; Stop 01/03/17 at 08:29; Status Cancel Aspirin (Fabiola Aspirin) 325 mg 1X ONCE PO ; Start 01/03/17 at 00:30; Stop 01/03 at 00:31; Status DC Vancomycin HCl (Vanco Per Pharmacy) 1 each PRN DAILY PRN MC SEE COMMENTS Last administered on 01/04/17 08:05; Start 01/03/17 at 02:30 Ondansetron HCl 4 mg 4 mg PRN Q8HRS PRN IV NAUSEA/VOMITING; Start 01/03/17 at 00:45; Stop 01/04/17 at 00:44; Status DC Sodium Chloride (Iv Sodium Chloride 0.9% 1000ml Bag) 1,000 ml @ 100 mls/hr Q10H IV ; Start 01/03/17 at 01:00; Stop 01/03/17 at 02:56; Status DC Acetaminophen (Tylenol) 650 mg PRN Q4HRS PRN PO FEVER; Start 01/03/17 at 00:45 ; Stop 01/04/17 at 00:44; Status DC Albuterol/ Ipratropium (Duoneb) 3 ml RTQID NEB ; Start 01/03/17 at 08:00; Stop 01/03/17 at 08:05; Status DC Insulin Aspart (Novolog) 0-5 UNITS TIDWMEALS SQ ; Start 01/03/17 at 08:00 Dextrose 12.5 gm PRN Q15MIN PRN IV SEE COMMENTS; Start 01/03/17 at 00:45; Stop 01/03/17 at 10:13; Status DC Aspirin 300 mg 300 mg 1X ONCE SC Last administered on 01/03/17 01:23; Start 01/03/17 at 01:15; Stop 01/03/17 at 01:16; Status DC Vancomycin HCl 1.5 gm/Sodium Chloride 500 ml @ 250 mls/hr 1X ONCE IV Last administered on 01/03/17 02:33; Start 01/03/17 at 02:30; Stop 01/03/17 at 04:29 ; Status DC Vancomycin HCl/ Sodium Chloride (Iv Sodium Chloride 0.9% 250ml) 250 ml @ 250 mls/hr Q24H IV Last administered on 01/04/17 02:30; Start 01/04/17 at 02:30 Vancomycin HCl 1 each 1X ONCE MC ; Start 01/05/17 at 02:00; Stop 01/05/17 at 02 :01 Pneumococcal Polyvalent Vaccine 1 each 1 each 1X ONCE MC ; Start 01/03/17 at 02 :45; Stop 01/03/17 at 02:46; Status UNV Nitroglycerin/ Dextrose 250 ml @ 0 mls/hr CONT PRN IV SEE I/O RECORD; Start 08/12 at 03:00 Sodium Chloride (Iv Sodium Chloride 0.9% 1000ml Bag) 1,000 ml @ 125 mls/hr Q8H IV Last administered on 01/03/17 03:00; Start 01/03/17 at 03:00; Stop at 06:22; Status DC Furosemide 40 mg 40 mg 1X ONCE IVP Last administered on 01/03/17 06:14; Start 01/03/17 at 06:15; Stop 01/03/17 at 06:16; Status DC Piperacillin Sod/ Tazobactam Sod/ Sodium Chloride (Zosyn/Iv Sodium Chloride 0.9 % 50ml) 50 ml @ 100 mls/hr Q6HRS IV ; Start 01/03/17 at 08:00; Stop 01/03/17 at 08:08; Status DC Albuterol/ Ipratropium (Duoneb) 3 ml Q4HRS W/A NEB Last administered on 11:00; Start 01/03/17 at 10:00; Stop 01/03/17 at 15:41; Status DC Prednisone (Prednisone) 60 mg DAILY PO ; Start 01/03/17 at 09:00; Stop 01/03/17 at 09:00; Status DC Methylprednisolone Sodium Succinate (Solu-Medrol 125mg Vial) 125 mg BID IV Last administered on 01/03/17 09:51; Start 01/03/17 at 09:00; Stop 01/03/17 at 11:44; Status DC Aspirin (Ecotrin) 81 mg DAILY PO ; Start 01/03/17 at 09:00; Stop 01/03/17 at 10: 16; Status DC Fluticasone Propionate (Flonase) 1 spray BID NS ; Start 01/03/17 at 09:00 Glipizide (Glucotrol) 2.5 mg AFTRNOON PO ; Start 01/03/17 at 13:00 Glipizide (Glucotrol) 5 mg DAILYAC PO ; Start 01/04/17 at 07:30 Lisinopril (Prinivil) 20 mg DAILY PO ; Start 01/03/17 at 09:00; Stop 01/03/17 at 10:10; Status DC Lorazepam (Ativan) 0.125 mg PRN TID PRN PO ANXIETY / AGITATION; Start 01/03/17 at 08:15 Famotidine 20 mg 20 mg BID PO ; Start 01/03/17 at 09:00 Piperacillin Sod/ Tazobactam Sod/ Sodium Chloride (Zosyn/Iv Sodium Chloride 0.9 % 100ml) 100 ml @ 200 mls/hr Q6HRS IV Last administered on 01/04/17 12:10; Start 01/03/17 at 12:00 Piperacillin Sod/ Tazobactam Sod (Zosyn Per Pharmacy) 1 each PRN DAILY PRN MC SEE COMMENTS; Start 01/03/17 at 08:15; Status UNV Insulin Aspart (Novolog) 0-7 UNITS TIDWMEALS SQ ; Start 01/03/17 at 12:00; Status UNV Dextrose 12.5 gm PRN Q15MIN PRN IV SEE COMMENTS; Start 01/03/17 at 08:15 Lorazepam (Ativan) 8 mg 1X STAT IV ; Start 01/03/17 at 08:26; Stop 01/03/17 at 08:29; Status DC Lorazepam (Ativan) 2 mg 1X ONCE IV Last administered on 01/03/17 08:39; Start 01/03/17 at 08:45; Stop 01/03/17 at 08:46; Status DC Lorazepam (Ativan) 2 mg PRN Q4HRS PRN IV ANXIETY / AGITATION; Start 01/03/17 at 08:45 Lorazepam (Ativan) 2 mg PRN Q1HR PRN IV ANXIETY / AGITATION; Start 01/03/17 at 08:45 Insulin Detemir (Levemir) 8 units 1X ONCE SQ Last administered on 01/03/17 09 :53; Start 01/03/17 at 09:15; Stop 01/03/17 at 09:17; Status DC Enoxaparin Sodium (Lovenox Per Pharmacy Prophylaxis Dosing) 1 each PRN DAILY PRN MC SEE COMMENTS; Start 01/03/17 at 09:15 Enoxaparin Sodium (Lovenox 40mg Syringe) 40 mg DAILY SQ Last administered on 10:15; Start 01/03/17 at 10:00 Metoprolol Tartrate (Lopressor) 5 mg Q6HRS IVP Last administered on 01/03/17 10:30; Start 01/03/17 at 11:00; Stop 01/03/17 at 18:21; Status DC Nitroglycerin (Nitro-Dur 0.4mg) 1 patch DAILY TD ; Start 01/03/17 at 11:00; Stop 01/03/17 at 11:56; Status DC Hydralazine HCl (Apresoline) 10 mg PRN Q4HRS PRN IVP ELEVATED BP, SEE COMMENTS ; Start 01/03/17 at 10:15 Aspirin 150 mg 150 mg DAILY SC ; Start 01/04/17 at 09:00; Stop 01/04/17 at 09:00 ; Status DC Sodium Chloride (Iv Sodium Chloride 0.9% 1000ml Bag) 1,000 ml @ 75 mls/hr [id number] IV Last administered on 01/04/17 12:06; Start 01/03/17 at 10:30 Methylprednisolone Sodium Succinate (Solu-Medrol 125mg Vial) 60 mg BID IV Last administered on 01/04/17 10:14; Start 01/03/17 at 21:00 Gadobutrol (Gadavist) 5 mmol 1X ONCE IV Last administered on 01/03/17 14:42; Start 01/03/17 at 14:15; Stop 01/03/17 at 14:25; Status DC Albuterol/ Ipratropium (Duoneb) 3 ml RTQID NEB Last administered on 01/04/17 11:11; Start 01/03/17 at 16:00 Aspirin (Aspirin) 300 mg DAILY SC Last administered on 01/04/17 10:15; Start 01/03/17 at 17:00 Metoprolol Tartrate (Lopressor) 5 mg PRN Q6HRS PRN IVP HYPERTENSION, SEE COMMENTS Last administered on 01/04/17 05:02; Start 01/03/17 at 18:00 Acetaminophen (Tylenol) 650 mg PRN Q6HRS PRN SC MILD PAIN / TEMP Last administered on 01/03/17 19:52; Start 01/03/17 at 19:45 Active Scripts Active Cipro (Ciprofloxacin Hcl) 500 Mg Tablet 1 Tab PO BID PRN Reported Ipratropium [place] 0.2 Mg/1 Ml Solution 1 Vial NEB QID Ativan (Lorazepam) 0.5 Mg Tablet 0.125 Mg PO TID PRN Montelukast Sodium Tablet (Montelukast Sodium) 10 Mg Tablet 10 Mg PO HS Glipizide 5 Mg Tablet 5 Mg PO DAILYAC Mobic (Meloxicam) 7.5 Mg Tablet 7.5 Mg PO DAILY Zantac (Ranitidine Hcl) 150 Mg Tablet 150 Mg PO BID Lisinopril 20 Mg Tablet 20 Mg PO DAILY Glipizide 5 Mg Tablet 2.5 Mg PO AFTRNOON Tudorza Pressair (Aclidinium [place]) 400 Mcg Aer.pow.ba 400 Mcg IH Metformin Hcl 500 Mg Tablet 500 Mg PO BIDWMEALS Fluticasone Propionate Nasal [place] (Fluticasone Propionate) 16 Gm [place].susp 1 [place] NS BID Aspir 81 (Aspirin) 81 Mg Tablet.dr 81 Mg PO [megared] Vitals/I & O Vital Sign - Last 24 Hours 01/03/17 01/03/17 01/03/17 01/03/17 14:00 15:00 15:44 16:00 Temp 100.8 100.8 Pulse 100 95 92 Resp 26 25 18 B/P 132/63 161/87 156/82 Pulse Ox 96 100 100 100 O2 Delivery Nasal Cannula Nasal Cannula Nasal Cannula Nasal Cannula O2 Flow Rate 3.0 3.0 2.0 3.0 01/03/17 01/03/17 01/03/17 01/03/17 16:00 17:00 18:00 19:00 Temp 102.0 102.0 Pulse 94 94 99 Resp 23 24 20 B/P 159/75 159/79 140/70 Pulse Ox 99 99 100 O2 Delivery Nasal Cannula Nasal Cannula Nasal Cannula Nasal Cannula O2 Flow Rate 3.0 3.0 3.0 2.0 01/03/17 01/03/17 01/03/17 01/03/17 19:21 20:00 20:00 20:20 Pulse 93 115 Resp 20 B/P 146/74 145/81 Pulse Ox 100 100 O2 Delivery Nasal Cannula Nasal Cannula Nasal Cannula O2 Flow Rate 2.0 3.0 2.0 01/03/17 01/03/17 01/03/17 01/03/17 21:00 21:36 23:00 23:55 Temp 101.0 100.6 101.0 100.6 Pulse 94 98 101 101 Resp 20 32 32 34 B/P 146/71 121/68 138/66 132/71 Pulse Ox 100 100 95 95 O2 Delivery Nasal Cannula Nasal Cannula Nasal Cannula Nasal Cannula O2 Flow Rate 2.0 2.0 2.0 2.0 01/03/17 01/04/17 01/04/17 01/04/17 23:59 01:00 02:00 03:00 Pulse 101 104 108 Resp 28 28 28 B/P 113/65 145/74 145/74 Pulse Ox 96 97 97 O2 Delivery Nasal Cannula Nasal Cannula Nasal Cannula Nasal Cannula O2 Flow Rate 2.0 2.0 2.0 2.0 01/04/17 01/04/17 01/04/17 01/04/17 04:00 04:00 05:00 05:02 Temp 100.0 100.0 Pulse 108 127 127 Resp 28 32 B/P 162/83 167/83 167/87 Pulse Ox 95 98 O2 Delivery Nasal Cannula Nasal Cannula Nasal Cannula O2 Flow Rate 2.0 2.0 2.0 01/04/17 01/04/17 01/04/17 01/04/17 06:00 07:00 07:53 08:00 Temp 100.9 100.9 Pulse 97 105 102 Resp 28 32 33 B/P 166/82 168/80 169/77 Pulse Ox 98 98 95 O2 Delivery Nasal Cannula Nasal Cannula Nasal Cannula Nasal Cannula O2 Flow Rate 2.0 2.0 3.0 2.0 01/04/17 01/04/17 01/04/17 01/04/17 08:10 09:00 10:00 11:00 Temp 102.3 102.3 Pulse 110 119 Resp 40 36 40 B/P 171/73 175/97 175/97 Pulse Ox 94 91 91 91 O2 Delivery Nasal Cannula Nasal Cannula Nasal Cannula Nasal Cannula O2 Flow Rate 2.0 2.0 2.0 2.0 01/04/17 11:11 O2 Delivery Nasal Cannula O2 Flow Rate 2.0 Intake and Output 01/03/17 01/03/17 01/04/17 15:00 23:00 07:00 Intake Total 0 ml 1625 ml Output Total 1570 ml 265 ml 500 ml Balance -1570 ml -265 ml 1125 ml Nutrition Consultation Dietary Evaluation: Comments: Pt does not meet malnutrition criteria at this time. Pt unable to provide any information at time of visit. Rec. PPN with Clinimix at 80 ml/hr if pt unable to conume PO intake. Expected Outcomes/Goals: meet 75% estimated nutrition needs Malnutrition Findings: Weight Status: Appropriate IWONA [id number] MD Jan 04, 2017 13:57
[2017-01-04] MEDS: ACETAMINOPHEN 650 MG SUPP.RECT. PR PRN (21:48)
[2017-01-05] VITALS (9 sets, daily range): BP systolic 97–169; BP diastolic 48–74
[2017-01-05] MEDS: VANCOMYCIN 1 GM in IV NORMAL SALINE 250ML 250 ML IV SCH (02:30)
[2017-01-05] MEDS: IV NORMAL SALINE 1000ML BAG 1,000 ML IV SCH (03:00)
[2017-01-05] MEDS: VANCOMYCIN PER PHARMACY MC PRN (04:47)
[2017-01-05] MEDS: PIPERACILLIN/TAZOBACTAM 4.5 GM in IV NORMAL SALINE 100ML 100 ML IV SCH (05:49)
[2017-01-05] MEDS ORDERED: MORPHINE SULFATE 2 MG/ML DISP.SYRIN. IV ONE (08:30)
--- NOTE | 2017-01-05 08:50 | PDOC ---
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 not verbal Vitals Vitals Vital Signs Date Time Temp Pulse Resp B/P Pulse Ox O2 Delivery O2 Flow Rate FiO2 01/05/17 06:00 105 23 104/52 97 Simple Mask 5.0 01/05/17 04:00 98.4 98.4 Physical Exam General: Alert, mild distress, Other (somnolent) Heart: Normal S1, Normal S2 Lungs: Other (decrease bs) Abdomen: Soft, Other (scaphoid abd) Extremities: No cyanosis, Other (2+ bilateral LE pitting leg edema) Skin: No breakdown, No significant lesion Labs LABS Laboratory Tests Test 01/04/17 12:04 01/04/17 18:32 01/05/17 04:00 Glucose (Fingerstick) 145mg/dL (70-99) 163mg/dL (70-99) Vancomycin Level Trough 4.4mcg/mL (10.0-20.0) Vancomycin Last Dose Date Vancomycin Last Dose Time 0230 Assessment and Plan Assessmemt and Plan change made to comfort care this AM 0815 Problems Medical Problems: (1) Altered mental status Status: Acute (2) Community acquired pneumonia Status: Acute Problems: Comment Review of Relevant I have reviewed the following items arlen (where applicable) has been applied. Labs Laboratory Tests Test 01/03/17 09:30 01/03/17 12:13 01/03/17 12:30 01/03/17 18:04 White Blood Count 9.0x10^3/uL (4.0-11.0) Red Blood Count 4.08x10^6/uL (4.30-5.70) Hemoglobin 12.0g/dL (13.0-17.5) Hematocrit 35.6% (39.0-53.0) Mean Corpuscular Volume 87fL (79-100) Mean Corpuscular Hemoglobin 29pg (25-35) Mean Corpuscular Hemoglobin Concent 34g/dL (31-37) Red Cell Distribution Width 14.5% (11.5-14.5) Platelet Count 162x10^3/uL (140-400) Neutrophils (%) (Auto) 89% (31-73) Lymphocytes (%) (Auto) 4% (24-48) Monocytes (%) (Auto) 7% (0-9) Eosinophils (%) (Auto) 0% (0-3) Basophils (%) (Auto) 0% (0-3) Neutrophils # (Auto) 8.0x10^3uL (1.8-7.7) Lymphocytes # (Auto) 0.4x10^3/uL (1.0-4.8) Monocytes # (Auto) 0.6x10^3/uL (0.0-1.1) Eosinophils # (Auto) 0.0x10^3/uL (0.0-0.7) Basophils # (Auto) 0.0x10^3/uL (0.0-0.2) Segmented Neutrophils % 82% (35-66) Band Neutrophils % 7% (0-9) Lymphocytes % 5% (24-48) Monocytes % 6% (0-10) Platelet Estimate Adequate (ADEQUATE) Creatine Kinase 47U/L (39-308) Glucose (Fingerstick) 222mg/dL (70-99) 163mg/dL (70-99) Troponin I Quantitative 0.365ng/mL (0.000-0.055) Vitamin B12 Level 667pg/mL (247-911) Thyroid Stimulating Hormone (TSH) 0.561uIU/mL (0.358-3.74) Test 01/04/17 05:00 01/04/17 12:04 01/04/17 18:32 01/05/17 04:00 White Blood Count 14.3x10^3/uL (4.0-11.0) Red Blood Count 4.52x10^6/uL (4.30-5.70) Hemoglobin 13.1g/dL (13.0-17.5) Hematocrit 40.2% (39.0-53.0) Mean Corpuscular Volume 89fL (79-100) Mean Corpuscular Hemoglobin 29pg (25-35) Mean Corpuscular Hemoglobin Concent 33g/dL (31-37) Red Cell Distribution Width 14.8% (11.5-14.5) Platelet Count 177x10^3/uL (140-400) Neutrophils (%) (Auto) 85% (31-73) Lymphocytes (%) (Auto) 4% (24-48) Monocytes (%) (Auto) 10% (0-9) Eosinophils (%) (Auto) 0% (0-3) Basophils (%) (Auto) 0% (0-3) Neutrophils # (Auto) 12.2x10^3uL (1.8-7.7) Lymphocytes # (Auto) 0.6x10^3/uL (1.0-4.8) Monocytes # (Auto) 1.4x10^3/uL (0.0-1.1) Eosinophils # (Auto) 0.0x10^3/uL (0.0-0.7) Basophils # (Auto) 0.0x10^3/uL (0.0-0.2) Segmented Neutrophils % 80% (35-66) Band Neutrophils % 2% (0-9) Lymphocytes % 7% (24-48) Atypical Lymphocytes % (Manual) 2% (0-0) Monocytes % 9% (0-10) Platelet Estimate Adequate (ADEQUATE) Sodium Level 143mmol/L (136-145) Potassium Level 3.7mmol/L (3.5-5.1) Chloride Level 101mmol/L (98-107) Carbon Dioxide Level 40mmol/L (21-32) Anion Gap 2 (6-14) Blood Urea Nitrogen 38mg/dL (8-26) Creatinine 0.8mg/dL (0.7-1.3) Estimated GFR (Cockcroft-Gault) 95.8 Glucose Level 152mg/dL (70-99) Calcium Level 8.2mg/dL (8.5-10.1) Glucose (Fingerstick) 145mg/dL (70-99) 163mg/dL (70-99) Vancomycin Level Trough 4.4mcg/mL (10.0-20.0) Vancomycin Last Dose Date Vancomycin Last Dose Time 229 Laboratory Tests Test 01/04/17 12:04 01/04/17 18:32 01/05/17 04:00 Glucose (Fingerstick) 145mg/dL (70-99) 163mg/dL (70-99) Vancomycin Level Trough 4.4mcg/mL (10.0-20.0) Vancomycin Last Dose Date Vancomycin Last Dose Time 229 Microbiology 01/03/17 Blood Culture - Preliminary, Resulted NO GROWTH AFTER 2 DAYS Medications Current Medications Sodium Chloride (Iv Sodium Chloride 0.9% 1000ml Bag) 1,770 ml @ 1,770 mls/hr Q1H IV Last administered on 01/02/17 23:20; Start 01/02/17 at 23:45; Stop at 09:06; Status DC Acetaminophen 650 mg 650 mg 1X ONCE RI Last administered on 01/03/17 00:08; Start 01/02/17 at 23:45; Stop 01/02/17 at 23:46; Status DC Levofloxacin/ Dextrose (LEVAQUIN 750mg PREMIX) 150 ml @ 100 mls/hr 1X ONCE IV Last administered on 01/03/17 00:47; Start 01/03/17 at 00:30; Stop 01/03/17 at 01:59; Status DC Methylprednisolone Sodium Succinate 125 mg 125 mg 1X ONCE IV Last administered on 01/03/17 00:45; Start 01/03/17 at 00:30; Stop 01/03/17 at 00:31 ; Status DC Nitroglycerin/ Dextrose 250 ml @ 0 mls/hr 1X ONCE IV Last administered on 01/03 00:45; Start 01/03/17 at 00:30; Stop 01/03/17 at 00:31; Status DC Sodium Chloride (Iv Sodium Chloride 0.9% 1000ml Bag) 1,000 ml @ 125 mls/hr 1X ONCE IV ; Start 01/03/17 at 00:30; Stop 01/03/17 at 08:29; Status Cancel Aspirin (Fabiola Aspirin) 325 mg 1X ONCE PO ; Start 01/03/17 at 00:30; Stop 01/03 at 00:31; Status DC Vancomycin HCl (Vanco Per Pharmacy) 1 each PRN DAILY PRN MC SEE COMMENTS Last administered on 01/05/17 04:47; Start 01/03/17 at 02:30; Stop 01/05/17 at 08:21 ; Status DC Ondansetron HCl 4 mg 4 mg PRN Q8HRS PRN IV NAUSEA/VOMITING; Start 01/03/17 at 00:45; Stop 01/04/17 at 00:44; Status DC Sodium Chloride (Iv Sodium Chloride 0.9% 1000ml Bag) 1,000 ml @ 100 mls/hr Q10H IV ; Start 01/03/17 at 01:00; Stop 01/03/17 at 02:56; Status DC Acetaminophen (Tylenol) 650 mg PRN Q4HRS PRN PO FEVER; Start 01/03/17 at 00:45 ; Stop 01/04/17 at 00:44; Status DC Albuterol/ Ipratropium (Duoneb) 3 ml RTQID NEB ; Start 01/03/17 at 08:00; Stop 01/03/17 at 08:05; Status DC Insulin Aspart (Novolog) 0-5 UNITS TIDWMEALS SQ ; Start 01/03/17 at 08:00 Dextrose 12.5 gm PRN Q15MIN PRN IV SEE COMMENTS; Start 01/03/17 at 00:45; Stop 01/03/17 at 10:13; Status DC Aspirin 300 mg 300 mg 1X ONCE RI Last administered on 01/03/17 01:23; Start 01/03/17 at 01:15; Stop 01/03/17 at 01:16; Status DC Vancomycin HCl 1.5 gm/Sodium Chloride 500 ml @ 250 mls/hr 1X ONCE IV Last administered on 01/03/17 02:33; Start 01/03/17 at 02:30; Stop 01/03/17 at 04:29 ; Status DC Vancomycin HCl/ Sodium Chloride (Iv Sodium Chloride 0.9% 250ml) 250 ml @ 250 mls/hr Q24H IV Last administered on 01/04/17 02:30; Start 01/04/17 at 02:30; Stop 01/05/17 at 04:36; Status DC Vancomycin HCl 1 each 1X ONCE MC Last administered on 01/05/17 02:00; Start 01/05/17 at 02:00; Stop 01/05/17 at 08:21; Status DC Pneumococcal Polyvalent Vaccine 1 each 1 each 1X ONCE MC ; Start 01/03/17 at 02 :45; Stop 01/03/17 at 02:46; Status UNV Nitroglycerin/ Dextrose 250 ml @ 0 mls/hr CONT PRN IV SEE I/O RECORD; Start 08/12 at 03:00; Stop 01/05/17 at 08:20; Status DC Sodium Chloride (Iv Sodium Chloride 0.9% 1000ml Bag) 1,000 ml @ 125 mls/hr Q8H IV Last administered on 01/03/17 03:00; Start 01/03/17 at 03:00; Stop at 06:22; Status DC Furosemide 40 mg 40 mg 1X ONCE IVP Last administered on 01/03/17 06:14; Start 01/03/17 at 06:15; Stop 01/03/17 at 06:16; Status DC Piperacillin Sod/ Tazobactam Sod/ Sodium Chloride (Zosyn/Iv Sodium Chloride 0.9 % 50ml) 50 ml @ 100 mls/hr Q6HRS IV ; Start 01/03/17 at 08:00; Stop 01/03/17 at 08:08; Status DC Albuterol/ Ipratropium (Duoneb) 3 ml Q4HRS W/A NEB Last administered on 11:00; Start 01/03/17 at 10:00; Stop 01/03/17 at 15:41; Status DC Prednisone (Prednisone) 60 mg DAILY PO ; Start 01/03/17 at 09:00; Stop 01/03/17 at 09:00; Status DC Methylprednisolone Sodium Succinate (Solu-Medrol 125mg Vial) 125 mg BID IV Last administered on 01/03/17 09:51; Start 01/03/17 at 09:00; Stop 01/03/17 at 11:44; Status DC Aspirin (Ecotrin) 81 mg DAILY PO ; Start 01/03/17 at 09:00; Stop 01/03/17 at 10: 16; Status DC Fluticasone Propionate (Flonase) 1 spray BID NS ; Start 01/03/17 at 09:00; Stop 01/05/17 at 08:20; Status DC Glipizide (Glucotrol) 2.5 mg AFTRNOON PO ; Start 01/03/17 at 13:00; Stop at 08:20; Status DC Glipizide (Glucotrol) 5 mg DAILYAC PO ; Start 01/04/17 at 07:30; Stop 01/05/17 at 08:20; Status DC Lisinopril (Prinivil) 20 mg DAILY PO ; Start 01/03/17 at 09:00; Stop 01/03/17 at 10:10; Status DC Lorazepam (Ativan) 0.125 mg PRN TID PRN PO ANXIETY / AGITATION; Start 01/03/17 at 08:15 Famotidine 20 mg 20 mg BID PO ; Start 01/03/17 at 09:00; Stop 01/05/17 at 08:20 ; Status DC Piperacillin Sod/ Tazobactam Sod/ Sodium Chloride (Zosyn/Iv Sodium Chloride 0.9 % 100ml) 100 ml @ 200 mls/hr Q6HRS IV Last administered on 01/05/17 05:49; Start 01/03/17 at 12:00; Stop 01/05/17 at 08:20; Status DC Piperacillin Sod/ Tazobactam Sod (Zosyn Per Pharmacy) 1 each PRN DAILY PRN MC SEE COMMENTS; Start 01/03/17 at 08:15; Status UNV Insulin Aspart (Novolog) 0-7 UNITS TIDWMEALS SQ ; Start 01/03/17 at 12:00; Status UNV Dextrose 12.5 gm PRN Q15MIN PRN IV SEE COMMENTS; Start 01/03/17 at 08:15 Lorazepam (Ativan) 8 mg 1X STAT IV ; Start 01/03/17 at 08:26; Stop 01/03/17 at 08:29; Status DC Lorazepam (Ativan) 2 mg 1X ONCE IV Last administered on 01/03/17 08:39; Start 01/03/17 at 08:45; Stop 01/03/17 at 08:46; Status DC Lorazepam (Ativan) 2 mg PRN Q4HRS PRN IV ANXIETY / AGITATION Last administered on 01/05/17 05:21; Start 01/03/17 at 08:45 Lorazepam (Ativan) 2 mg PRN Q1HR PRN IV ANXIETY / AGITATION Last administered on 01/05/17 08:02; Start 01/03/17 at 08:45 Insulin Detemir (Levemir) 8 units 1X ONCE SQ Last administered on 01/03/17 09 :53; Start 01/03/17 at 09:15; Stop 01/03/17 at 09:17; Status DC Enoxaparin Sodium (Lovenox Per Pharmacy Prophylaxis Dosing) 1 each PRN DAILY PRN MC SEE COMMENTS; Start 01/03/17 at 09:15; Stop 01/05/17 at 08:20; Status DC Enoxaparin Sodium (Lovenox 40mg Syringe) 40 mg DAILY SQ Last administered on 10:15; Start 01/03/17 at 10:00; Stop 01/05/17 at 08:20; Status DC Metoprolol Tartrate (Lopressor) 5 mg Q6HRS IVP Last administered on 01/03/17 10:30; Start 01/03/17 at 11:00; Stop 01/03/17 at 18:21; Status DC Nitroglycerin (Nitro-Dur 0.4mg) 1 patch DAILY TD ; Start 01/03/17 at 11:00; Stop 01/03/17 at 11:56; Status DC Hydralazine HCl (Apresoline) 10 mg PRN Q4HRS PRN IVP ELEVATED BP, SEE COMMENTS ; Start 01/03/17 at 10:15; Stop 01/05/17 at 08:20; Status DC Aspirin 150 mg 150 mg DAILY RI ; Start 01/04/17 at 09:00; Stop 01/04/17 at 09:00 ; Status DC Sodium Chloride (Iv Sodium Chloride 0.9% 1000ml Bag) 1,000 ml @ 75 mls/hr [id number] IV Last administered on 01/05/17 03:00; Start 01/03/17 at 10:30; Stop 01/05/17 at 08:20; Status DC Methylprednisolone Sodium Succinate (Solu-Medrol 125mg Vial) 60 mg BID IV Last administered on 01/04/17 21:07; Start 01/03/17 at 21:00; Stop 01/05/17 at 08:21 ; Status DC Gadobutrol (Gadavist) 5 mmol 1X ONCE IV Last administered on 01/03/17 14:42; Start 01/03/17 at 14:15; Stop 01/03/17 at 14:25; Status DC Albuterol/ Ipratropium (Duoneb) 3 ml RTQID NEB Last administered on 01/04/17 20:28; Start 01/03/17 at 16:00; Stop 01/05/17 at 08:20; Status DC Aspirin (Aspirin) 300 mg DAILY RI Last administered on 01/04/17 10:15; Start 01/03/17 at 17:00; Stop 01/05/17 at 08:20; Status DC Metoprolol Tartrate (Lopressor) 5 mg PRN Q6HRS PRN IVP HYPERTENSION, SEE COMMENTS Last administered on 01/04/17 14:25; Start 01/03/17 at 18:00; Stop 10/12 at 08:21; Status DC Acetaminophen 650 mg 650 mg PRN Q6HRS PRN RI MILD PAIN / TEMP Last administered on 01/04/17 21:48; Start 01/03/17 at 19:45; Stop 01/05/17 at 08:20 ; Status DC Vancomycin HCl/ Sodium Chloride (Iv Sodium Chloride 0.9% 250ml) 250 ml @ 250 mls/hr Q12H IV ; Start 01/05/17 at 14:30; Stop 01/05/17 at 14:30; Status DC Vancomycin HCl 1 each 1X ONCE MC ; Start 01/06/17 at 14:00; Stop 01/06/17 at 14 :00; Status DC Morphine Sulfate 2 mg 1X ONCE IV ; Start 01/05/17 at 08:30; Stop 01/05/17 at 08 :31; Status DC Active Scripts Active Cipro (Ciprofloxacin Hcl) 500 Mg Tablet 1 Tab PO BID PRN Reported Ipratropium Moore 0.2 Mg/1 Ml Solution 1 Vial NEB QID Ativan (Lorazepam) 0.5 Mg Tablet 0.125 Mg PO TID PRN Montelukast Sodium Tablet (Montelukast Sodium) 10 Mg Tablet 10 Mg PO HS Glipizide 5 Mg Tablet 5 Mg PO DAILYAC Mobic (Meloxicam) 7.5 Mg Tablet 7.5 Mg PO DAILY Zantac (Ranitidine Hcl) 150 Mg Tablet 150 Mg PO BID Lisinopril 20 Mg Tablet 20 Mg PO DAILY Glipizide 5 Mg Tablet 2.5 Mg PO AFTRNOON Tudorza Pressair (Aclidinium Moore) 400 Mcg Aer.pow.ba 400 Mcg IH Metformin Hcl 500 Mg Tablet 500 Mg PO BIDWMEALS Fluticasone Propionate Nasal Girard (Fluticasone Propionate) 16 Gm Girard.susp 1 Girard NS BID Aspir 81 (Aspirin) 81 Mg Tablet.dr 81 Mg PO [megared] Vitals/I & O Vital Sign - Last 24 Hours 01/04/17 01/04/17 01/04/17 01/04/17 09:00 10:00 11:00 11:11 Temp 102.3 102.3 Pulse 110 119 Resp 40 36 40 B/P 171/73 175/97 175/97 Pulse Ox 91 91 91 O2 Delivery Nasal Cannula Nasal Cannula Nasal Cannula Nasal Cannula O2 Flow Rate 2.0 2.0 2.0 2.0 01/04/17 01/04/17 01/04/17 01/04/17 12:00 12:00 13:00 14:00 Temp 97.8 97.8 Resp 29 30 33 B/P 153/82 178/88 183/87 Pulse Ox 92 95 95 O2 Delivery Nasal Cannula Nasal Cannula Nasal Cannula Nasal Cannula O2 Flow Rate 2.0 3.0 2.0 2.0 01/04/17 01/04/17 01/04/17 01/04/17 14:25 15:00 15:50 16:00 Pulse 121 Resp 28 B/P 183/87 192/100 Pulse Ox 97 O2 Delivery Nasal Cannula Nasal Cannula Nasal Cannula O2 Flow Rate 2.0 2.0 3.0 01/04/17 01/04/17 01/04/17 01/04/17 16:00 17:00 18:00 19:00 Temp 100.0 100.0 Pulse 118 Resp 30 27 19 50 B/P 193/85 173/87 152/85 184/85 Pulse Ox 100 95 96 96 O2 Delivery Nasal Cannula Nasal Cannula Nasal Cannula Nasal Cannula O2 Flow Rate 2.0 2.0 2.0 2.0 01/04/17 01/04/17 01/04/17 01/04/17 20:00 20:00 20:29 21:00 Temp 102.0 102.5 102.0 102.5 Pulse 122 120 Resp 41 41 B/P 185/88 186/88 Pulse Ox 90 96 92 O2 Delivery Nasal Cannula Nasal Cannula Nasal Cannula Nasal Cannula O2 Flow Rate 2.0 2.0 2.0 2.0 01/04/17 01/04/17 01/04/17 01/05/17 22:00 23:00 23:59 00:00 Temp 102.5 100.1 100.7 102.5 100.1 100.7 Pulse 115 114 115 Resp 36 48 34 B/P 173/89 163/71 169/74 Pulse Ox 96 94 91 O2 Delivery Nasal Cannula Nasal Cannula Mask Simple Mask O2 Flow Rate 4.0 6.0 10.0 10.0 01/05/17 01/05/17 01/05/17 01/05/17 01:00 03:00 04:00 04:00 Temp 99.3 98.4 99.3 98.4 Pulse 117 113 111 Resp 20 28 37 B/P 155/68 136/63 119/64 Pulse Ox 99 96 99 O2 Delivery Simple Mask Simple Mask Mask Simple Mask O2 Flow Rate 10.0 8.0 6.0 6.0 01/05/17 01/05/17 05:00 06:00 Pulse 109 105 Resp 30 23 B/P 124/58 104/52 Pulse Ox 98 97 O2 Delivery Nasal Cannula Simple Mask O2 Flow Rate 4.0 5.0 Intake and Output 01/04/17 01/04/17 01/05/17 15:00 23:00 07:00 Intake Total 0 ml 1959 ml Output Total 465 ml 605 ml 50 ml Balance -465 ml -605 ml 1909 ml Nutrition Consultation Dietary Evaluation: Comments: Pt does not meet malnutrition criteria at this time. Pt unable to provide any information at time of visit. Rec. PPN with Clinimix at 80 ml/hr if pt unable to conume PO intake. Expected Outcomes/Goals: meet 75% estimated nutrition needs Malnutrition Findings: Weight Status: Appropriate IWONA [email or web address] MD Jan 05, 2017 08:49
[2017-01-05] MEDS ORDERED: VANCOMYCIN 1 GM in IV NORMAL SALINE 250ML 250 ML IV SCH (14:30)
== END 2017-01-05 09:08 | disposition expired | DRG 871 ==
LOC: ER 22:52 → 1 WEST ICU 01-03 00:17
PROVIDERS: ADMIT Internal Medicine; ATTEND Internal Medicine
DX: A41.9 Sepsis, unspecified organism (principal); G93.41 Metabolic encephalopathy; I50.43 Acute on chronic combined systolic (congestive) and diastolic (congestive) heart failure; G04.90 Encephalitis and encephalomyelitis, unspecified; J18.9 Pneumonia, unspecified organism; J96.21 Acute and chronic respiratory failure with hypoxia; J96.22 Acute and chronic respiratory failure with hypercapnia; E87.2 Acidosis; J44.1 Chronic obstructive pulmonary disease with (acute) exacerbation; J44.0 Chronic obstructive pulmonary disease with (acute) lower respiratory infection; I13.0 Hypertensive heart and chronic kidney disease with heart failure and stage 1 through stage 4 chronic kidney disease, or unspecified chronic kidney disease; F17.210 Nicotine dependence, cigarettes, uncomplicated; F41.9 Anxiety disorder, unspecified; G40.909 Epilepsy, unspecified, not intractable, without status epilepticus; E78.5 Hyperlipidemia, unspecified; I45.81 Long QT syndrome; E11.65 Type 2 diabetes mellitus with hyperglycemia; Z51.5 Encounter for palliative care; N18.2 Chronic kidney disease, stage 2 (mild); Z66 Do not resuscitate; J30.9 Allergic rhinitis, unspecified; M54.5 Low back pain; Z87.440 Personal history of urinary (tract) infections; Z88.1 Allergy status to other antibiotic agents; Z91.09 Other allergy status, other than to drugs and biological substances; Z79.82 Long term (current) use of aspirin; Z82.49 Family history of ischemic heart disease and other diseases of the circulatory system; Z99.81 Dependence on supplemental oxygen; Z90.49 Acquired absence of other specified parts of digestive tract
CPT/HCPCS: 36415; 36600; 51702; 70450; 70553; 71010; 80048; 80053; 80061; 80202; 81001; 82550; 82607; 82805; 82947; 83605; 83735; 83880; 84443; 84484; 85007; 85027; 85610; 85730; 87040; 87641; 87804; 93005; 93306; 93880; 94640; 94660; 95816; 96365; 96375; 99406; G0481; J1650; J1815; J1940; J1956; J2060; J2543; J2930; J3370; J3490; J7030; J7040; J7050; J7620; 99285-25; A9585